=== PATIENT | female | born 1960 | race Caucasian/White ===

== ENCOUNTER → 2020-06-28 13:06 | Outpatient (BNVA) | payer OTHER, SELFPAY | PROVIDERS: PCP Internal Medicine; Referring Provider Internal Medicine; Visit Provider Internal Medicine Pulmonary Disease | DX: J45.40 Moderate persistent asthma, uncomplicated (principal); G47.33 Obstructive sleep apnea (adult) (pediatric); I51.89 Other ill-defined heart diseases; Z79.899 Other long term (current) drug therapy; Z99.89 Dependence on other enabling machines and devices | CPT/HCPCS: 99214 ==

== ENCOUNTER 2020-08-10 15:39 | Outpatient (REF) | payer OTHER, SELFPAY | END 2020-08-10 15:40 | disposition home or self-care (01) | LOC: HO.LAB 15:39 | PROVIDERS: Visit Provider Internal Medicine | DX: Z20.828 Contact with and (suspected) exposure to other viral communicable diseases (principal) | CPT/HCPCS: C9803; U0003 ==

== ENCOUNTER → 2020-10-18 13:10 | Outpatient (BNVA) | payer OTHER, SELFPAY | PROVIDERS: PCP Internal Medicine; Visit Provider Internal Medicine Pulmonary Disease | DX: Z13.89 Encounter for screening for other disorder (principal) | CPT/HCPCS: 99212 ==

== ENCOUNTER 2020-12-10 13:51 | Emergency (ER) | payer OTHER, SELFPAY ==
[2020-12-10 14:07] VITALS: BP 138/85; PULSE 56; RESP 18; TEMP 36.1; O2SAT 98; BMI 36.8
--- NOTE | 2020-12-10 15:02 | ED.BACK ---
HPI - Back Pain/Injury General Chief Complaint: Back Pain/Injury Stated Complaint: BACK PAIN Time Seen by Provider: 12/10/20 15:02 History of Present Illness HPI Narrative: Patient with chronic back pain complains of a flare which happens occasionally , pain is more severe and is radiating it to both sides of the buttock and to both posterior upper thighs, there is no weakness no numbness no changes to bowel or bladder no fever no chills no abdominal pain no back pain Related Data Home Medications Medication Instructions Recorded Confirmed montelukast 10 mg tablet 10 mg PO DAILY 06/28/20 12/20/20 omeprazole 20 mg capsule,delayed 20 mg PO DAILY 06/28/20 12/20/20 release Previous Rx's Medication Instructions Recorded albuterol sulfate 90 mcg/actuation 1 inh INHALATION QID #6.7 g 07/04/20 aerosol inhaler fexofenadine 180 mg tablet 180 mg PO DAILY 30 Days #30 tab 07/04/20 ipratropium 0.5 mg-albuterol 3 mg 3 ml INHALATION Q6-8H 30 Days #360 07/06/20 (2.5 mg base)/3 mL nebulization ml soln furosemide 40 mg tablet 40 mg PO BID 30 Days #60 tab 10/18/20 budesonide-formoterol HFA 160 2 puff PO BID #10.2 g 10/19/20 mcg-4.5 mcg/actuation aerosol inhaler cyclobenzaprine 10 mg PO TID PRN #10 tab 12/10/20 ibuprofen 600 mg PO Q6H PRN #20 tab 12/10/20 acetaminophen 650 mg 650 mg PO Q12H PRN 90 Days #180 tab 12/20/20 tablet,extended release Allergies Allergy/AdvReac Type Severity Reaction Status Date / Time pollen extracts [POLLEN] Allergy Mild ITCHY EYES Verified 12/20/20 12:51 apple [APPLES] Allergy Unknown HIVES Verified 12/20/20 12:51 egg [EGGS] Allergy Unknown HIVES Verified 12/20/20 12:51 peanut [PEANUTS] Allergy Unknown HIVES Verified 12/20/20 12:51 Review of Systems Review of Systems: Positive for back pain that radiates to both buttocks and both upper thighs Negatives are no fever no chills no dizziness no weakness no numbness weakness or tingling no headache no neck pain no chest pain no abdominal pain no skin rash [facility] Past Medical History Source: nursing notes reviewed Medical History Asthma Chronic back pain Social History Social History Alcohol intake: never Smoking Status: Never smoker Physical Exam Vital Signs: Vital Signs: Last Vital Signs Temp 98.1 F 12/10/20 16:01 Pulse 77 12/10/20 18:02 Resp 16 12/10/20 18:02 BP 120/65 12/10/20 18:02 Pulse Ox 96 12/10/20 18:02 Body Mass Index 36.8 General appearance is no acute distress, cooperative and O x3 Head is normocephalic atraumatic Neck is supple and nontender The chest no respiratory distress The abdomen is soft nontender The back had bilateral paraspinal lower lumbar tenderness, the skin was normal with no redness warmth or rash, there was no focal bony tenderness, there was no CVA tenderness, pain was easily reproduced with movement The extremities is full range of motion x4 Skin no rash Neuro motor is 5/5 x4, gait is normal and sensation was intact and symmetrical Discharge Plan Discharge Clinical Impression: Back pain Patient Disposition: Home, Self-Care Additional Instructions: We gave additional narcotic dosing here As you have a monthly prescription for oxycodone, I did not want to write any additional narcotic medication as it might interfere with her doctors ability to prescribe your regular monthly dose The best plan is if needed use that medication to take extra dosing of oxycodone as needed and call the prescribing doctor to make sure that is okay I added a muscle relaxer and Motrin Follow with her doctor and return any concerns Prescriptions: New cyclobenzaprine 10 mg tablet 10 mg PO TID PRN (Reason: muscle spasm) Qty: 10 RF: 0 ibuprofen 600 mg tablet 600 mg PO Q6H PRN (Reason: pain) Qty: 20 RF: 0 No Action albuterol sulfate [Proventil HFA] 90 mcg/actuation HFA aerosol inhaler 1 inh inhalation QID Qty: 6.7 RF: 3 fexofenadine 180 mg tablet 180 mg PO DAILY 30 Days Qty: 30 RF: 3 ipratropium-albuterol 0.5 mg-3 mg(2.5 mg base)/3 mL solution for nebulization 3 ml inhalation Q6-8H 30 Days Qty: 360 RF: 6 budesonide-formoterol 160-4.5 mcg/actuation HFA aerosol inhaler 2 puff PO BID Qty: 10.2 RF: 3 acetaminophen 650 mg tablet extended release 650 mg PO Q12H PRN (Reason: pain) 90 Days Qty: 180 RF: 2 furosemide 40 mg tablet 40 mg PO BID 30 Days Qty: 60 RF: 3 montelukast 10 mg tablet 10 mg PO DAILY RF: 0 omeprazole 20 mg capsule,delayed release(DR/EC) 20 mg PO DAILY RF: 0 Interventions: ED Discharge Assessment Last Done: 12/10/20 18:03 Discharge Date/Time: 12/10/20 18:04
[2020-12-10] MEDS: Ketorolac Tromethamine 30 MG/ML VIAL IM (15:49)
[2020-12-10] MEDS: oxyCODONE HCl Immed Release 5 MG TABLET 10 MG PO (15:50)
[2020-12-10] MEDS: LORazepam 1 MG TABLET PO (15:50)
[2020-12-10 16:01] VITALS: BP 130/62; PULSE 88; RESP 20; TEMP 36.7; O2SAT 100
[2020-12-10] MEDS: Morphine Sulfate 2 MG/ML CARTRIDGE IM (17:10)
[2020-12-10 18:02] VITALS: BP 120/65; PULSE 77; RESP 16; O2SAT 96
== END 2020-12-10 18:04 | disposition home or self-care (01) ==
PROVIDERS: Emergency Provider Emergency Medicine; PCP Internal Medicine
DX: M54.5 Low back pain (principal); M79.652 Pain in left thigh; M79.651 Pain in right thigh; Z79.899 Other long term (current) drug therapy
CPT/HCPCS: 96372; 99284; J1885; J2270

== ENCOUNTER → 2021-01-08 12:47 | Outpatient (BNVA) | payer OTHER, SELFPAY | PROVIDERS: PCP Internal Medicine; Visit Provider Internal Medicine Pulmonary Disease | DX: J45.40 Moderate persistent asthma, uncomplicated (principal); J44.9 Chronic obstructive pulmonary disease, unspecified; G47.33 Obstructive sleep apnea (adult) (pediatric); Z99.89 Dependence on other enabling machines and devices; Z91.09 Other allergy status, other than to drugs and biological substances | CPT/HCPCS: 99212 ==

== ENCOUNTER 2021-04-04 14:30 | Outpatient (REF) | payer OTHER, SELFPAY ==
--- NOTE | ~2021-04-04 | XR_ITS ---
EXAMINATION: XR RIBS, RIGHT CLINICAL INFORMATION: Chest pain COMPARISON: Chest x-ray of October 20, 2019 TECHNIQUE: PA film of the chest and 3 views of the right ribs FINDINGS: There are some stable patchy regions of density at the lung bases likely related to atelectasis. No pneumothorax or pleural effusion. Heart normal size. No evidence of pulmonary edema. No acute displaced rib fracture is identified. XR/XR ribs RT min 3V w CXR1V IMPRESSION: Stable appearance of the chest. No acute rib fracture, effusion, or pneumothorax identified.
[2021-04-04 16:33] LABS: Basophils Absolute Auto 0.1 X10*3/uL (0.0-0.2); Basophils Percent Auto 0.6 % (0-2); Eosinophils Percent Auto 2.6 % (0-4); Hemoglobin 14.1 g/dl (12.0-16.0); MANUAL DIFF FLAG SCAN; Mean Corpuscular Volume 89.5 fL (80-98); SCAN SMEAR FLAG 1
[2021-04-04 16:35] LABS: Eosinophils Absolute Auto 0.3 X10*3/uL (0.0-0.4); Hematocrit 43.3 % (37-47); Imm Gran Abs Auto 0.09 X10*3/uL (0.00-0.03); Imm Gran Pct Auto 0.8 % (0.0-0.4); Lymphocytes Absolute Auto 3.3 X10*3/uL (1.2-4.9); Lymphocytes Percent Auto 28.8 % (20-40); Mean Corpuscular HGB Conc 32.6 g/dl (31.0-35.0); Mean Corpuscular Hemoglobin 29.1 pg (27.0-33.0); Mean Platelet Volume 13.1 fL (9.4-12.3); Monocytes Percent Auto 8.6 % (2-11); Neutrophils Absolute Auto 6.8 X10*3/uL (2.0-8.3); Neutrophils Percent Auto 58.6 % (45-73); Red Blood Count 4.84 X10*6/uL (4.20-5.50); Red Cell Distribution Width 12.5 % (11.0-16.0)
[2021-04-04 16:37] LABS: PLT ABN DIST 1
[2021-04-04 16:48] LABS: Alanine Aminotransferase 24 U/L (0-31); Albumin Level 4.7 g/dL (3.5-5.0); Alkaline Phosphatase 91 U/L (39-117); Anion Gap 16 (12-20); Aspartate Amino Transferase 23 U/L (5-31); Bilirubin Total 0.4 mg/dL (0.0-1.0); Blood Urea Nitrogen 14 mg/dL (9-16); Calcium 10.4 mg/dL (8.4-10.2); Carbon Dioxide 27 mmol/L (22-29); Chloride 103 mmol/L (96-108); Cholesterol 195 mg/dL; Estimated Glomerular Filt Rate > 60; Glucose Fasting 97 mg/dL (60-99); HDL Cholesterol 43 mg/dL; LDL Cholesterol Calculated 120 mg/dl; Sodium 142 mmol/L (135-145); Total Protein 8.4 g/dL (6.5-8.0); Triglycerides 163 mg/dL
[2021-04-04 16:52] LABS: Platelet Count 193 X10*3/uL (160-400); White Blood Count 11.6 X10*3/uL (4.8-10.8)
[2021-04-04 17:08] LABS: TSH reflex Free T4 1.45 uIU/mL (0.32-4.0)
[2021-04-04 18:56] LABS: SLIDE REVIEW VERIFIED
== END 2021-04-04 14:31 | disposition home or self-care (01) ==
LOC: HO.HMGCLDS 14:30
PROVIDERS: PCP Internal Medicine; Visit Provider Internal Medicine
DX: Z00.01 Encounter for general adult medical examination with abnormal findings (principal); E66.09 Other obesity due to excess calories; J45.40 Moderate persistent asthma, uncomplicated; K21.9 Gastro-esophageal reflux disease without esophagitis; R07.89 Other chest pain
CPT/HCPCS: 36415; 71101; 80053; 80061; 84443; 85025

== ENCOUNTER → 2021-05-16 12:42 | Outpatient (BNVA) | payer OTHER, SELFPAY | PROVIDERS: PCP Internal Medicine; Visit Provider Internal Medicine Pulmonary Disease | DX: J45.50 Severe persistent asthma, uncomplicated (principal); J30.1 Allergic rhinitis due to pollen; G47.33 Obstructive sleep apnea (adult) (pediatric); R06.00 Dyspnea, unspecified; R60.0 Localized edema; Z99.89 Dependence on other enabling machines and devices; Z91.012 Allergy to eggs; Z91.010 Allergy to peanuts; Z91.018 Allergy to other foods | CPT/HCPCS: 99212 ==

== ENCOUNTER 2021-06-15 13:42 | Outpatient (REF) | payer OTHER, SELFPAY ==
--- NOTE | ~2021-06-15 | MM_ITS ---
EXAMINATION: MM SCREENING DIGITAL BREAST TOMOSYNTHESIS, BILATERAL CLINICAL INFORMATION: Screening. Asymptomatic. The lifetime risk of breast cancer based on the Tyrer-Cuzick Model is 7%. COMPARISON: Mammography: 03/01/2019, 12/16/2016, 12/14/2015 TECHNIQUE: Digital breast tomosynthesis is performed in both the craniocaudal and mediolateral oblique views along with computer-aided detection (CAD). Synthesized 2D images are generated from the tomosynthesis. Additional exaggerated left CC view is provided. FINDINGS: There are scattered areas of fibroglandular density (ACR BI-RADS breast composition Category b). There are no significant masses, abnormal calcifications, or other abnormalities. Parenchymal pattern is similar to prior studies. The axillary nodes are stable. Skin contours are smooth. MM/MM tomosynthesis screening BI IMPRESSION: No mammographic evidence of malignancy. ASSESSMENT: BI-RADS 1: Negative RECOMMENDATION: Routine annual mammography screening. This patient's information was entered into a reminder system with a target due date for their next mammogram.
--- NOTE | ~2021-06-15 | MM_ITS ---
EXAMINATION: BONE DENSITOMETRY CLINICAL INDICATION: Encounter for other screening for malignant neoplasm. COMPARISON: This is the patient's baseline examination. TECHNIQUE: Using a [employer] DXA System (software version: 13.1) manufactured by [employer], dual-energy x-ray absorptiometry was performed of the lumbar spine and left hip. The images are of good technical quality. Summary results are attached. FINDINGS: AP SPINE L1-L4: BMD 1.024 g/cm2, Z-score -1.1, T-score -1.3, osteopenia. LEFT FEMUR, NECK: BMD 0.905 g/cm2, Z-score -0.4, T-score -1.0, normal. LEFT FEMUR, TOTAL: BMD 1.095 g/cm2, Z-score 0.9, T-score 0.7, normal. IDENTIFIED RISK FACTORS: Menopause. HISTORY OF FRACTURE: None listed. MEDICATIONS: None listed. MM/XR DEXA axial skeleton IMPRESSION: 1. DIAGNOSIS: Osteopenia based on the lowest T-score value of -1.3 in the lumbar spine applying World Health Organization criteria. 2. 10-YEAR FRACTURE RISK PREDICTION, FRAX: Major osteoporotic fracture (clinical spine, forearm, hip or shoulder) 3.7%. Hip fracture 0.2%. 3. Treatment Recommendations: NOF guidelines recommend consideration for treatment in postmenopausal women and men age 50 and older presenting with the following: -A hip or vertebral (clinical or morphometric) fracture. -T-score less than or equal to -2.5 at the femoral neck or spine after appropriate evaluation to exclude secondary causes. -Low bone mass at the hip or spine and a 10-year fracture probability by FRAX of greater than or equal to 3% for hip fracture or greater than or equal to 20% for major osteoporotic fracture based on the [place] adapted WHO algorithm. 4. Other Recommendations: All treatment decisions require clinical judgment and consideration of individual patient factors, including patient preferences, comorbidities, previous drug use, risk factors not captured in the FRAX model (e.g. frailty, falls, vitamin D deficiency, increased bone turnover, interval significant decline in bone density) and possible under or overestimation of fracture risk by FRAX. Additional medical evaluation for secondary cause of low bone mineral density may be appropriate. FUTURE SCAN RECOMMENDATION: People with diagnosed cases of osteoporosis or at high risk for fracture should have regular bone mineral density tests. For patients eligible for Medicare, routine testing is allowed once every 2 years. The testing frequency can be increased to one year for patients who have rapidly progressing disease, those who are receiving or discontinuing medical therapy to restore bone mass, or have additional risk factors.
== END 2021-06-15 13:43 | disposition home or self-care (01) ==
LOC: HO.MAMMO 13:42
PROVIDERS: Visit Provider Internal Medicine
DX: Z12.31 Encounter for screening mammogram for malignant neoplasm of breast (principal); Z13.820 Encounter for screening for osteoporosis; M85.80 Other specified disorders of bone density and structure, unspecified site; Z78.0 Asymptomatic menopausal state
CPT/HCPCS: 77063; 77067; 77080

== ENCOUNTER → 2021-06-25 13:50 | Outpatient (REF) | payer OTHER, SELFPAY ==
--- NOTE | 2021-06-25 13:54 | CA_ITS ---
Transthoracic Echocardiogram Patient (Last, First, Middle): Alexandra Ortega M Gender: Female Date of : 1960 Age: 61 Procedure Date: 06/25/2021 Procedure Type: Transthoracic Echocardiogram Location: OP Height: 162.56 cm Weight: 97.98 kg BSA: 2.02 m2 Heart Rate: bpm BP: 124 / 70 mmHg Client Resolution Specialist: Referring MD: Torrey Love MD Symptoms: R06.00 - Dyspnea, unspecified Study Quality: Fair ECG Rhythm: Sinus Conclusions: - The left ventricular systolic function is normal. The visually estimated ejection fraction is between 55-60%. - There is mild tricuspid valve regurgitation. - Mild pulmonary hypertension is present. Findings Left Ventricle Normal left ventricular cavity size. There is mildly increased left ventricular wall thickness. The left ventricular systolic function is normal. The visually estimated ejection fraction is between 55-60%. There is no evidence of regional wall motion abnormalities. E/E prime ratio is between 8 and 15 consistent with indeterminate filling pressures. Evidence suggests grade I (mild) diastolic dysfunction. Right Ventricle Normal right ventricular cavity size and systolic function. Atria Both atria are normal in size. Aortic Valve There is a normal trileaflet aortic valve. There is no aortic valve stenosis. There is no aortic valve regurgitation. Mitral Valve The mitral valve appears normal. There is trace mitral valve regurgitation. There is no mitral valve stenosis. Pulmonic Valve The pulmonic valve was not well visualized. Tricuspid Valve Normal tricuspid valve structure. There is mild tricuspid valve regurgitation. The right ventricular systolic pressure is 37 mmHg. Mild pulmonary hypertension is present. Great Vessels Top normal ascending aortic size at 3.7 cm. Venous The inferior vena cava was not well visualized. Pericardium/Pleural There is no evidence of pericardial effusion. Prior Study Comparison No significant change compared to prior study dated: 04/20/2020. Measurements 2D Linear Measurements IVSd: 1.11 0.6-0.9/0.6-1.0 cm LVIDd: 4.45 3.9-5.3/4.2-5.9 cm LVIDd Index: 2.20 2.4-3.2/2.2-3.1 cm/m2 LVIDs: 3.11 2.0-3.6 cm LVPWd: 1.07 0.7-1.1 cm Ao Root: 3.20 2.1-3.5 cm LA Diam: 3.70 2.7-3.8/3.0-4.0 cm LAIDs Index: 1.83 1.5-2.3 cm/m2 LV Mass: 211.45 67-162/88-224 g LV Mass Index: 104.68 43-95/49-115 g/m2 LVOT Diam: 2.00 3.0+(-)1.3 cm Mitral Valve MV Pk E: 0.80 MV PK A: 1.02 MV Decel Time: 297.00 E/A: 0.80 E'Lateral: 7.40 E'Medial: 8.92 E/E' Med: 9.00 E/E' Lat: 10.80 PHT: 87.00 MVA PHT: 2.53 Decel [place]: 2.69 Aortic Valve AoV Pk Jimbo: 1.54 AoV Mn Jimbo: 1.05 AoV VTI: 0.30 AoV Pk Grad: 9.00 Aov Mn Grad: 5.00 WILLIAM Cont.VTI: 1.81 LVOT LVOT Pk Jimbo: 0.86 LVOT Mn Jimbo: 0.60 LVOT VTI: 0.17 LVOT Pk Grad: 3.00 LVOT Mn Grad: 2.00 LVOT Diam: 2.00 LVOT Area: 3.14 Diastolic Function MV Pk E: 0.80 MV Pk A: 1.02 E/A: 0.80 E'Medial: 8.92 E/E' Med: 9.00 E' Laterial: 7.40 E/E' Lat: 10.80 Right Ventricle TAPSE (mm): 27.00 TVS' Jimbo: 13.00 Tricuspid Valve TR Pk Jimbo: 2.33 TR Pk Grad: 22.00 RVSP: 37.00 Great Vessels Aorta Ao Root-2D: 3.20 2.0-3.7 cm Ao Asc: 3.70 2.1-3.4 cm Ao Arch: 3.00 Pulmonary Valve PV Pk Jimbo: 1.02 Peak PV Grad: 4.00 Updated in Other Vendor System with Status of Final Bernardino Allen MD electronically signed on 06/26/2021 4:29:15 PM with status of Final
== END ==
LOC: HO.CARD 13:50
PROVIDERS: PCP Internal Medicine; Visit Provider Internal Medicine Pulmonary Disease
DX: R06.00 Dyspnea, unspecified (principal)
CPT/HCPCS: 93306

== ENCOUNTER → 2021-06-27 13:43 | Outpatient (BNVA) | payer OTHER, SELFPAY | PROVIDERS: PCP Internal Medicine; Visit Provider Internal Medicine Pulmonary Disease | DX: J45.40 Moderate persistent asthma, uncomplicated (principal); G47.33 Obstructive sleep apnea (adult) (pediatric); R06.00 Dyspnea, unspecified; R60.0 Localized edema; Z99.89 Dependence on other enabling machines and devices | CPT/HCPCS: 99212 ==

== ENCOUNTER 2021-07-16 12:36 | Emergency (ER) | payer OTHER, SELFPAY ==
[2021-07-16 13:13] VITALS: BP 152/78; PULSE 114; RESP 17; TEMP 35.9; O2SAT 98; BMI 36.7
--- NOTE | 2021-07-16 18:19 | ED.GENADULT ---
HPI - General Adult General Chief complaint: General Medical Stated complaint: leg pain/asthma Time Seen by Provider: 07/16/21 18:19 Source: patient Mode of arrival: ambulatory Limitations: no limitations History of Present Illness HPI narrative: Pain with history of chronic back pain on oxycodone seen specialist and had epidural in the past plan to see pain specialist comes here as she finished her oxycodone 1 week ago supposed to last till next week pain is in the lower back going to her left leg as in the past no recent trauma also patient has history of asthma/COPD on inhaler at home no weakness of the legs no bladder or bowel involvement Related Data Home Medications Medication Instructions Recorded Confirmed montelukast 10 mg tablet 10 mg PO DAILY 06/28/20 04/04/21 omeprazole 20 mg capsule,delayed 20 mg PO DAILY 06/28/20 04/04/21 release Previous Rx's Medication Instructions Recorded fexofenadine 180 mg tablet 180 mg PO DAILY 30 Days #30 tab 07/04/20 cyclobenzaprine 10 mg tablet 10 mg PO TID PRN #10 tab 12/10/20 ibuprofen 600 mg tablet 600 mg PO Q6H PRN #20 tab 12/10/20 ipratropium 0.5 mg-albuterol 3 mg 3 ml INHALATION Q8H #360 ml 01/19/21 (2.5 mg base)/3 mL nebulization soln fluticasone propionate 50 1 spray INTRANASAL BID #48 ml 04/04/21 mcg/actuation nasal spray,suspension acetaminophen 650 mg 650 mg PO Q12H PRN 90 Days #180 tab 04/30/21 tablet,extended release Symbicort 160 mcg-4.5 2 puff PO BID #10.2 g NS 05/09/21 mcg/actuation HFA aerosol inhaler (budesonide-formoterol) furosemide 40 mg tablet 40 mg PO BID 30 Days #60 tab 05/16/21 ProAir HFA 90 mcg/actuation 1 puff PO QID #8.5 g NS 06/05/21 aerosol inhaler (albuterol sulfate) carisoprodol 350 mg tablet (Soma) 350 mg PO TID PRN #30 tab 07/16/21 diclofenac epolamine 1.3 % 1 patch TOPICAL BID #30 ea 07/16/21 transdermal 12 hour patch gabapentin 300 mg capsule 300 mg PO BEDTIME #30 cap 07/16/21 prednisone 20 mg tablet 40 mg PO DAILY #10 tab 07/16/21 Allergies Allergy/AdvReac Type Severity Reaction Status Date / Time pollen extracts [POLLEN] Allergy Mild ITCHY EYES Verified 06/27/21 13:47 apple [APPLES] Allergy Unknown HIVES Verified 06/27/21 13:47 egg [EGGS] Allergy Unknown HIVES Verified 06/27/21 13:47 peanut [PEANUTS] Allergy Unknown HIVES Verified 06/27/21 13:47 Review of Systems Review of Systems: Yes all other systems are reviewed and are negative [facility] Past Medical History Medical History Asthma Chronic back pain Social History Social History Housing: Apartment Alcohol intake: never Patient Tobacco Use Status: Never used Tobacco Second Hand Smoke Exposure: No Advance Directives: No Advance Directives Information Provided: No Current occupational status: disabled Physical Exam Vital Signs: Vital Signs: Last Vital Signs Temp 98.9 F 07/16/21 18:58 Pulse 98 07/16/21 19:57 Resp 16 07/16/21 19:12 BP 139/83 07/16/21 19:12 Pulse Ox 97 07/16/21 19:12 Body Mass Index 36.7 Appearance: Alert. Oriented X3. No acute distress. Eyes: No pallor or icterus ENT: Pharynx normal. Oral Mucosa moist Neck: Normal inspection. Neck supple. CVS: Normal heart rate and rhythm. Pulses normal. Respiratory: No respiratory distress. Equal air entry bilateral, bilateral rhonchi no crackles Abdomen: Soft and nontender. Bowel sounds are present, no mass palpable, no CVA tenderness Skin: Skin warm and dry. Normal skin color. Normal skin turgor. Extremities: No lower extremity edema. No calf tenderness back: Diffuse lumbar spinal tenderness SLR positive left leg 45 degrees no neuro deficit Neuro: Oriented X 3. No motor deficit. No sensory deficit.No cerebellar signs , cranial nerves II-XII intact Medical Decision Making Lab Data Labs: Lab Results 07/16/21 Range/Units 19:00 COVID-19 (NIK) Negative (Negative) COVID-19 Clin Com See Note Discharge Plan Discharge Clinical Impression: Back pain Patient Disposition: Home, Self-Care Instructions: Chronic Back Pain (DC) Additional Instructions: Take pain medication as prescribed and follow-up with pain clinic Prescriptions: New carisoprodol [Soma] 350 mg tablet 350 mg PO TID PRN (Reason: muscle pain) Qty: 30 RF: 0 diclofenac epolamine 1.3 % patch 12 hour 1 patch topical BID Qty: 30 RF: 0 prednisone 20 mg tablet 40 mg PO DAILY Qty: 10 RF: 0 gabapentin 300 mg capsule 300 mg PO BEDTIME Qty: 30 RF: 0 No Action fexofenadine 180 mg tablet 180 mg PO DAILY 30 Days Qty: 30 RF: 3 ipratropium-albuterol 0.5 mg-3 mg(2.5 mg base)/3 mL solution for nebulization 3 ml inhalation Q8H Qty: 360 RF: 6 fluticasone propionate 50 mcg/actuation spray,suspension 1 spray intranasal BID Qty: 48 RF: 3 acetaminophen 650 mg tablet extended release 650 mg PO Q12H PRN (Reason: pain) 90 Days Qty: 180 RF: 2 budesonide-formoterol [Symbicort] 160-4.5 mcg/actuation HFA aerosol inhaler 2 puff PO BID Qty: 10.2 RF: 1 albuterol sulfate [ProAir HFA] 90 mcg/actuation HFA aerosol inhaler 1 puff PO QID Qty: 8.5 RF: 3 cyclobenzaprine 10 mg tablet 10 mg PO TID PRN (Reason: muscle spasm) Qty: 10 RF: 0 ibuprofen 600 mg tablet 600 mg PO Q6H PRN (Reason: pain) Qty: 20 RF: 0 furosemide 40 mg tablet 40 mg PO BID 30 Days Qty: 60 RF: 3 montelukast 10 mg tablet 10 mg PO DAILY RF: 0 omeprazole 20 mg capsule,delayed release(DR/EC) 20 mg PO DAILY RF: 0 Interventions: ED Discharge Assessment Last Done: 07/16/21 20:47 Discharge Date/Time: 07/16/21 20:48
[2021-07-16 18:58] VITALS: BP 129/71; PULSE 105; RESP 18; TEMP 37.2; O2SAT 95
[2021-07-16 19:12] VITALS: BP 139/83; PULSE 103; RESP 16; O2SAT 97
[2021-07-16] MEDS: predniSONE 20 MG TABLET 40 MG PO (19:17)
[2021-07-16] MEDS: carisoprodoL 350 MG TABLET PO (19:17)
[2021-07-16] MEDS: traMADoL HCL 50 MG TABLET PO (19:18)
--- NOTE | 2021-07-16 19:21 | PC.NURSE ---
Bronchial and vesicular ls are clear and =, pt is speaking in full clear sentences wuth nonlabored resps pt reports 7/10 pain behind L knee, no redness or warmth noted, pedal pulses are = bilat. awaiting rt for upd.
[2021-07-16 19:30] LABS: COVID-19 Test Negative (Negative)
[2021-07-16] MEDS: Albuterol/Iprat 2.5/0.5MG 3 ML AMPUL.NEB INHALE (19:55)
[2021-07-16 19:57] VITALS: PULSE 98; O2SAT 98
== END 2021-07-16 20:48 | disposition home or self-care (01) ==
LOC: HO.ED 19:20
PROVIDERS: Emergency Provider Internal Medicine; PCP Internal Medicine
DX: M54.50 Low back pain, unspecified (principal); M79.605 Pain in left leg; Z79.899 Other long term (current) drug therapy; Z20.822 Contact with and (suspected) exposure to COVID-19
CPT/HCPCS: 36415; 87635; 94640; 99283; 99284

== ENCOUNTER → 2021-08-22 13:45 | Outpatient (BNVA) | payer OTHER, SELFPAY | PROVIDERS: PCP Internal Medicine; Visit Provider Internal Medicine Pulmonary Disease | DX: J44.9 Chronic obstructive pulmonary disease, unspecified (principal); J45.50 Severe persistent asthma, uncomplicated; G47.33 Obstructive sleep apnea (adult) (pediatric); R60.0 Localized edema; Z99.89 Dependence on other enabling machines and devices | CPT/HCPCS: 99212 ==

== ENCOUNTER → 2021-09-03 14:46 | Outpatient (BNVA) | payer OTHER, SELFPAY | PROVIDERS: PCP Internal Medicine; Referring Provider Internal Medicine; Visit Provider Internal Medicine Cardiovascular Disease | DX: R06.00 Dyspnea, unspecified (principal); R60.0 Localized edema; J45.909 Unspecified asthma, uncomplicated; Z77.22 Contact with and (suspected) exposure to environmental tobacco smoke (acute) (chronic) | CPT/HCPCS: 93005; 99202 ==

== ENCOUNTER → 2022-02-08 14:32 | Outpatient (BNVA) | payer OTHER, SELFPAY | PROVIDERS: PCP Internal Medicine; Visit Provider Internal Medicine Pulmonary Disease | DX: J44.9 Chronic obstructive pulmonary disease, unspecified (principal); J02.9 Acute pharyngitis, unspecified; G47.33 Obstructive sleep apnea (adult) (pediatric); Z79.899 Other long term (current) drug therapy; Z99.89 Dependence on other enabling machines and devices | CPT/HCPCS: 99212 ==

== ENCOUNTER → 2022-06-18 12:46 | Outpatient (BNVA) | payer OTHER, SELFPAY | PROVIDERS: PCP Internal Medicine; Visit Provider Internal Medicine Pulmonary Disease | DX: R06.00 Dyspnea, unspecified (principal); G47.33 Obstructive sleep apnea (adult) (pediatric); J45.40 Moderate persistent asthma, uncomplicated; R60.0 Localized edema; Z99.89 Dependence on other enabling machines and devices | CPT/HCPCS: 99212 ==

== ENCOUNTER 2022-06-19 13:41 | Outpatient (REF) | payer OTHER, SELFPAY ==
--- NOTE | ~2022-06-19 | MM_ITS ---
EXAMINATION: MM SCREENING DIGITAL BREAST TOMOSYNTHESIS, BILATERAL CLINICAL INFORMATION: Screening. Asymptomatic. The lifetime risk of breast cancer based on the Tyrer-Cuzick Model is 7%. COMPARISON: Mammography: 06/15/2021, 03/01/2019, 12/16/2016 TECHNIQUE: Digital breast tomosynthesis is performed in both the craniocaudal and mediolateral oblique views along with computer-aided detection (CAD). Synthesized 2D images are generated from the tomosynthesis. FINDINGS: There are scattered areas of fibroglandular density (ACR BI-RADS breast composition Category b). There are no significant masses, abnormal calcifications, or other abnormalities. There is no developing density or architectural abnormality. Again, there is a smooth oval intramammary node mid upper outer left breast and scattered bilateral vascular calcifications. The axilla and skin contours are unremarkable. MM/MM tomosynthesis screening BI IMPRESSION: No mammographic evidence of malignancy. ASSESSMENT: BI-RADS 2: Benign RECOMMENDATION: Routine annual mammography screening. This patient's information was entered into a reminder system with a target due date for their next mammogram.
== END 2022-06-19 13:42 | disposition home or self-care (01) ==
LOC: HO.MAMMO 13:41
PROVIDERS: Visit Provider Internal Medicine
DX: Z12.31 Encounter for screening mammogram for malignant neoplasm of breast (principal)
CPT/HCPCS: 77063; 77067

== ENCOUNTER 2022-06-26 13:28 | Outpatient (REF) | payer OTHER, SELFPAY ==
[2022-06-26 16:43] LABS: Alanine Aminotransferase 21 U/L (0-31); Albumin Level 4.6 g/dL (3.5-5.0); Alkaline Phosphatase 73 U/L (39-117); Anion Gap 19 (12-20); Aspartate Amino Transferase 19 U/L (5-31); Bilirubin Total 0.4 mg/dL (0.0-1.0); Blood Urea Nitrogen 15 mg/dL (9-16); Calcium 9.5 mg/dL (8.4-10.2); Carbon Dioxide 26 mmol/L (22-29); Chloride 101 mmol/L (96-108); Estimated Glomerular Filt Rate > 60; Glucose Random 124 mg/dL (60-115); Potassium 3.9 mmol/L (3.3-5.1); Sodium 142 mmol/L (135-145)
== END 2022-06-26 13:29 | disposition home or self-care (01) ==
LOC: HO.HMGCLDS 13:28
PROVIDERS: PCP Internal Medicine; Visit Provider Internal Medicine
DX: R60.0 Localized edema (principal)
CPT/HCPCS: 36415; 80053

== ENCOUNTER → 2022-11-15 13:43 | Outpatient (BNVA) | payer OTHER, SELFPAY | PROVIDERS: PCP Internal Medicine; Visit Provider Internal Medicine Pulmonary Disease | DX: J45.40 Moderate persistent asthma, uncomplicated (principal); G47.33 Obstructive sleep apnea (adult) (pediatric); Z99.89 Dependence on other enabling machines and devices | CPT/HCPCS: 99212 ==

== ENCOUNTER 2023-01-29 10:45 | Outpatient (REF) | payer OTHER, SELFPAY ==
[2023-01-29 14:23] LABS: MANUAL DIFF FLAG NO
[2023-01-29 14:44] LABS: Basophils Absolute Auto 0.1 X10*3/uL (0.0-0.2); Basophils Percent Auto 0.8 % (0-2); Eosinophils Absolute Auto 0.3 X10*3/uL (0.0-0.4); Eosinophils Percent Auto 4.1 % (0-4); Hematocrit 42.1 % (37.0-47.0); Hemoglobin 13.7 g/dl (12.0-16.0); Imm Gran Abs Auto 0.04 X10*3/uL (0.00-0.03); Imm Gran Pct Auto 0.5 % (0.0-0.4); Lymphocytes Absolute Auto 2.8 X10*3/uL (1.2-4.9); Lymphocytes Percent Auto 35.6 % (20-40); Mean Corpuscular HGB Conc 32.5 g/dl (31.0-35.0); Mean Corpuscular Hemoglobin 29.7 pg (27.0-33.0); Mean Corpuscular Volume 91.1 fL (80.0-98.0); Mean Platelet Volume 12.9 fL (9.4-12.3); Monocytes Absolute Auto 0.7 X10*3/uL (0.1-1.2); Monocytes Percent Auto 9.5 % (2-11); Neutrophils Absolute Auto 3.9 x10*3/uL (2.0-8.3); Neutrophils Percent Auto 49.5 % (45-73); Platelet Count 181 X10*3/uL (160-400); Red Blood Count 4.62 X10*6/uL (4.20-5.50); Red Cell Distribution Width 12.9 % (11.0-16.0); White Blood Count 7.8 X10*3/uL (4.8-10.8)
[2023-01-29 15:05] LABS: Alanine Aminotransferase 17 U/L (0-31); Albumin Level 4.3 g/dL (3.5-5.0); Alkaline Phosphatase 88 U/L (39-117); Anion Gap 12 (12-20); Aspartate Amino Transferase 19 U/L (5-31); Bilirubin Total 0.5 mg/dL (0.0-1.0); Blood Urea Nitrogen 6 mg/dL (9-16); Calcium 9.3 mg/dL (8.4-10.2); Carbon Dioxide 27 mmol/L (22-29); Chloride 108 mmol/L (96-108); Estimated Glomerular Filt Rate > 60; Glucose Random 98 mg/dL (60-115); Potassium 4.6 mmol/L (3.3-5.1); Sodium 142 mmol/L (135-145); Total Protein 7.5 g/dL (6.5-8.0)
[2023-01-29 15:16] LABS: TSH reflex Free T4 1.65 uIU/mL (0.32-4.0)
[2023-01-31 12:24] LABS: LDL Cholesterol Direct 123 mg/dL (<100)
== END 2023-01-29 10:46 | disposition home or self-care (01) ==
LOC: HO.HMGCLDS 10:45
PROVIDERS: PCP Internal Medicine; Visit Provider Internal Medicine
DX: Z00.01 Encounter for general adult medical examination with abnormal findings (principal); J44.9 Chronic obstructive pulmonary disease, unspecified; J45.40 Moderate persistent asthma, uncomplicated; K21.9 Gastro-esophageal reflux disease without esophagitis; Z91.09 Other allergy status, other than to drugs and biological substances
CPT/HCPCS: 36415; 80053; 83721; 84443; 85025

== ENCOUNTER 2023-05-22 12:47 | Outpatient (AMB) | payer OTHER, SELFPAY ==
--- NOTE | 2023-05-22 13:03 | MHC.OFFVIS ---
Intake Vital Signs 05/22/23 13:04 Height 5 ft 4 in Weight 200 lb 9.93 oz BMI 34.4 BP 128/84 Blood Pressure Location Rt brachial Position Sitting Pulse 97 Pulse Source Doppler Temp 96.2 F L Pulse Oximetry (%) 98 Oxygen Delivery Method Room Air Intake Visit Reasons: COPD Allergies seafood Allergy (Severe, Verified 01/29/23 10:17) Facial Swelling pollen extracts [POLLEN] Allergy (Mild, Verified 01/29/23 10:17) ITCHY EYES apple [APPLES] Allergy (Unknown, Verified 01/29/23 10:17) HIVES egg [EGGS] Allergy (Unknown, Verified 01/29/23 10:17) HIVES peanut [PEANUTS] Allergy (Unknown, Verified 01/29/23 10:17) HIVES HPI COPD HPI Details 63-year-old lady followed for severe persistent asthma, DOLLY, and dyspnea on exertion. She has been using Symbicort 160, Singulair, albuterol MDI and nebs with reasonable control of her underlying symptoms. She continues to use Lasix 40 mg twice a day.? She is following with quill machine tender for underlying diastolic dysfunction.? Patient is using her CPAP with good control of her underlying DOLLY.? She complains of approximately 2 week history of upper respiratory symptoms, but also with sinusitis. [facility] Medical History Asthma Chronic back pain Surgical History No pertinent past surgical history Social History Housing: Apartment Alcohol intake: never Patient Tobacco Use Status: Never used Tobacco e-Cigarette/Vaping Use: Never Used Second Hand Smoke Exposure: No Current occupational status: disabled Cognitive needs: No Hearing needs: No Vision needs: No Review of Systems Const Denies daytime sleepiness, Denies excessive sweating, Denies fatigue, Denies fever(s), Denies lethargy, Denies malaise, Denies night sweats, Denies snoring and Denies weight loss Eyes Denies blurry vision and Denies itchy eyes ENT Reports nasal congestion, Reports post nasal drip, Denies sinus pain, Denies sinus pressure and Denies other ( Thrush) Card Denies chest pain, Denies pedal edema, Denies dyspnea, Denies orthopnea and Denies paroxysmal nocturnal dyspnea Resp Denies cough, Denies hemoptysis, Denies excessive phlegm production, Denies dyspnea, Denies snoring and Denies wheezing GI Denies abdominal pain and Denies heartburn Musc Denies myalgias, Denies arthralgias and Denies joint swelling Skin/Breast Denies rash Neuro Denies memory loss and Denies seizure-like activity Psych Denies abnormal sleep pattern, Denies anxiety and Denies memory loss Endo Denies excessive sweating, Denies fatigue and Denies heat intolerance Ever/Lymph Denies easy bruising Aller/Immun Denies itchy eyes, Denies seasonal rhinorrhea and Denies wheezing Physical Exam Vital Signs: Last Vital Signs Temp 96.2 F L 05/22/23 13:04 Pulse 97 05/22/23 13:04 BP 128/84 05/22/23 13:04 Pulse Ox 98 05/22/23 13:04 Oxygen Delivery Method Room Air 05/22/23 13:04 BMI result Body Mass Index 34.4 Const General: no acute distress and alert Nutritional Appearance: obese Orientation/consciousness: Other orientation findings ( oriented) HEENT Head: Yes atraumatic Eyes General: appearance normal, both eyes and all related structures Sclerae: sclerae normal EOM: EOMs intact bilaterally Neck Neck: Yes supple Lymphatic: no lymphadenopathy noted Resp Effort & Inspection: normal respiratory effort and no use of accessory muscles Auscultation: clear to auscultation bilaterally Cardio Rate: regular rate Rhythm: regular rhythm Heart sounds: no gallops, no murmurs and no rubs Skin General skin exam: other ( warm) Extrem General: No clubbing, No cyanosis and No edema Assessment & Plan Assessment & Plan (1) Moderate persistent asthma: Code(s): J45.40 - Moderate persistent asthma, uncomplicated Plan: Baseline controlled on Symbicort, duo nebs, and albuterol MDI. Continue current regimen. Now with upper respiratory/sinusitis symptoms, will treat with a course of Augmentin. (2) DOLLY on CPAP: Code(s): G47.33 - Obstructive sleep apnea (adult) (pediatric); Z99.89 - Dependence on other enabling machines and devices Plan: Will controlled current CPAP therapy. Continue CPAP therapy. (3) Dyspnea on exertion: Code(s): R06.00 - Dyspnea, unspecified Plan: Reasonably well controlled on Lasix 40 mg twice a day. Continue current regimen. Medications: New albuterol sulfate 90 mcg/actuation 2 puffs inhalation Q4-6H PRN 1 ea 6RF shortness of breath or wheezing 30 days amoxicillin-pot clavulanate 875-125 mg 1 tab PO BID 20 tabs 0RF 10 days Discontinued prednisone Discontinued Reason: Doctor's Order 20 mg PO DAILY 5 tabs 0RF 5 days azithromycin Take 2 tablets today then 1 daily Discontinued Reason: Doctor's Order 250 mg PO ONCE 6 tabs 0RF 5 days J06.9 - Acute upper respiratory infection, unspecified Coding Level of Care Code Est Pt Level 4 (16966) Diagnoses Moderate persistent asthma J45.40 DOLLY on CPAP G47.33; Z99.89 Dyspnea on exertion R06.00
[2023-05-22 13:04] VITALS: BP 128/84; PULSE 97; TEMP 35.7; O2SAT 98; BMI 34.4
== END 2023-05-22 13:18 | disposition home or self-care (01) ==
PROVIDERS: PCP Internal Medicine; Visit Provider Internal Medicine Pulmonary Disease
DX: J45.40 Moderate persistent asthma, uncomplicated (principal); G47.33 Obstructive sleep apnea (adult) (pediatric); Z99.89 Dependence on other enabling machines and devices; R06.00 Dyspnea, unspecified
CPT/HCPCS: 99214

== ENCOUNTER → 2023-05-22 12:47 | Outpatient (BNVA) | payer OTHER, SELFPAY | PROVIDERS: PCP Internal Medicine; Visit Provider Internal Medicine Pulmonary Disease | DX: J45.40 Moderate persistent asthma, uncomplicated (principal); G47.33 Obstructive sleep apnea (adult) (pediatric); R06.00 Dyspnea, unspecified; Z99.89 Dependence on other enabling machines and devices | CPT/HCPCS: 99212 ==

== ENCOUNTER 2023-06-12 15:25 | Outpatient (AMB) | payer OTHER, SELFPAY ==
--- NOTE | 2023-06-12 15:26 | MHC.OFFVIS ---
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 PT states that she is having vv on both legs with bruising,swelling,pain and redness she says is bilateral but that the left one is worst She states it all started about a year ago and that it gets worst bwith walking or standing for long periods of time Allergies seafood Allergy (Severe, Verified 06/12/23 15:29) Facial Swelling pollen extracts [POLLEN] Allergy (Mild, Verified 06/12/23 15:29) ITCHY EYES apple [APPLES] Allergy (Unknown, Verified 06/12/23 15:29) HIVES egg [EGGS] Allergy (Unknown, Verified 06/12/23 15:29) HIVES peanut [PEANUTS] Allergy (Unknown, Verified 06/12/23 15:29) HIVES HPI BACK TENDER [employer]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 Complaints include pain over varicosities, swelling of lower extremities, cramping, fatigue, and heaviness of the lower extremities. It has been affecting there daily activities including walking. It is noted more so in left leg. Of note she smokes 1 and half packs per day Patient denies any previous venous surgery or injections. Patient denies any history of DVT/ PE. Patient denies any history of phlebitis. Trial of compression includes - [id number] They now present for vascular evaluation regarding their varicose veins. [facility] Medical History Asthma Chronic back pain Surgical History No pertinent past surgical history Social History Housing: Apartment Alcohol intake: never Patient Tobacco Use Status: Never used Tobacco e-Cigarette/Vaping Use: Never Used Second Hand Smoke Exposure: No Current occupational status: disabled Cognitive needs: No Hearing needs: No Vision needs: No Review of Systems Const Reports as per HPI ENT Reports no additional complaints Card Denies chest pain, Denies chest pain at rest and Denies chest pain with activity Resp Denies chest congestion and Denies cough GI Reports no additional complaints Musc Details: pain over varicosities, aching of lower extremities, swelling, cramping, heaviness and tiredness, itching Denies abnormal gait Skin/Breast Reports pruritus and Denies wounds Neuro Reports no additional complaints and Denies abnormal gait Psych Denies no additional complaints Physical Exam Const General: cooperative, healthy appearing and comfortable Orientation/consciousness: oriented to person, oriented to place and oriented to time Neck Carotids: no bruits Chest Chest palpation & inspection: normal inspection of the chest and normal palpation of entire chest wall Resp Effort & Inspection: normal respiratory effort and able to speak in complete sentences Cardio Rate: regular rate Heart sounds: S1 normal heart sound present and S2 normal heart sound present Peripheral pulses: Peripheral pulses 2+ throughout GI Inspection: Yes normal to inspection Skin Other: +2 edema, large rope-like varicosities greater than 4 mm left calf and thigh CEAP Classification C5 - healed ulceration Ep - Etiology Primary As - superficial veins P - reflux General skin exam: dry skin Neuro General: oriented to person, oriented to place and oriented to time Extrem Right lower extremity: full ROM, normal capillary refill and edema Left lower extremity: full ROM, normal capillary refill and edema Psych Mental Status: mental status grossly normal Assessment & Plan Assessment & Plan (1) Varicose veins of left lower extremity with inflammation: Code(s): I83.12 - Varicose veins of left lower extremity with inflammation Plan: In short, the patient has evidence of venous insufficiency. I have discussed the pathophysiology with the patient. In addition I have provided informational material regarding venous disease to the patient. We have discussed conservative measures including compression, elevation, and exercise. I have also provided a handout regarding appropriate use of compression stockings and where to purchase good compression stockings as well. I have taken the liberty of ordering venous insufficiency testing with the patient. They will follow up with me after testing. The patient had an opportunity to ask questions regarding the treatment plan. All questions were answered. Imaging studies, laboratory studies and physical exam results were discussed and reviewed in detail. No major barriers to understanding were identified. The patient expressed understanding and agreement with the above treatment plan. The patient is aware they should contact our office by phone for worsening of the current condition or the appearance of new symptoms. Thank you for allowing me to participate in the vascular care of this patient. If you have any questions or concerns regarding the treatment for the above condition please do not hesitate to contact me. The office telephone contact is [phone]. This note is constructed using voice recognition software. While every effort has been made to ensure accuracy, theatrical scenic designer errors may have been included. Thank you for allowing me to participate in the care of your patient. Yours sincerely, Larry Keenan MD, FACS, R.P.V.I. Orders: Orders US venous duplex LE BI 1 Week I83.12 - Varicose veins of left lower extremity with inflammation Coding Level of Care Code New Pt Level 4 (94349) Diagnoses Varicose veins of left lower extremity with inflammation I83.12
== END 2023-06-12 15:46 | disposition home or self-care (01) ==
PROVIDERS: PCP Internal Medicine; Visit Provider Surgery Vascular Surgery
DX: I83.12 Varicose veins of left lower extremity with inflammation (principal)
CPT/HCPCS: 99203

== ENCOUNTER → 2023-06-12 15:25 | Outpatient (BNVA) | payer OTHER, SELFPAY | PROVIDERS: PCP Internal Medicine; Visit Provider Surgery Vascular Surgery ==

== ENCOUNTER 2023-06-25 14:19 | Outpatient (REF) | payer OTHER, SELFPAY | END 2023-06-25 14:20 | disposition home or self-care (01) | LOC: HO.MAMMO 14:19 | PROVIDERS: Visit Provider Internal Medicine | DX: Z12.31 Encounter for screening mammogram for malignant neoplasm of breast (principal) | CPT/HCPCS: 77063; 77067 ==

== ENCOUNTER → 2023-06-25 14:30 | Outpatient (BNV) | payer OTHER, SELFPAY | PROVIDERS: Visit Provider Radiology Diagnostic Radiology | DX: Z12.31 Encounter for screening mammogram for malignant neoplasm of breast (principal) | CPT/HCPCS: 77063; 77067 ==

== ENCOUNTER 2023-07-23 14:55 | Outpatient (AMB) | payer OTHER, SELFPAY ==
--- NOTE | 2023-07-23 14:56 | A.OFFPC_ITS ---
Vital Signs 07/23/23 14:58 Height 5 ft 4 in Weight 200 lb BMI 34.3 BP 140/98 H Blood Pressure Location Rt brachial Position Sitting Pulse 104 H Pulse Source Pulse Oximeter Pulse Oximetry (%) 97 Oxygen Delivery Method Room Air Intake Visit Reasons: follow up COPD Allergies seafood Allergy (Severe, Verified 07/23/23 14:58) Facial Swelling pollen extracts [POLLEN] Allergy (Mild, Verified 07/23/23 14:58) ITCHY EYES apple [APPLES] Allergy (Unknown, Verified 07/23/23 14:58) HIVES egg [EGGS] Allergy (Unknown, Verified 07/23/23 14:58) HIVES peanut [PEANUTS] Allergy (Unknown, Verified 07/23/23 14:58) HIVES Medication List - Last Reconciled 07/23/23 by Nancy Corrales MD acetaminophen ER 650 mg PO Q12H PRN 90 days albuterol sulfate 90 mcg/actuation 2 puffs inhalation Q4-6H PRN 30 days fexofenadine 180 mg PO Q24H 90 days fluticasone propionate 50 mcg/actuation 1 spray intranasal BID furosemide 40 mg PO BID 90 days gabapentin 300 mg PO BID ipratropium bromide 2 sprays intranasal TID ipratropium-albuterol 0.5 mg-3 mg(2.5 mg base)/3 mL 3 mL inhalation Q8H omeprazole 20 mg PO DAILY 90 days Symbicort 160-4.5 mcg/actuation (budesonide-formoterol) 2 puffs inhalation BID NS Tobacco use date assessed: 07/23/23 Dental Screening Dental Screen Date: 07/23/23 Did you have a dental visit in the last 12 months?: No Was dental information given to patient?: Patient has dentist HPI follow up COPD HPI Details Patient is 63-year-old female with BMI of 34.3 came in today with a chief complaint of shortness of breath for the past few days Patient her moderate persistent asthma and COPD Patient says that the symptoms started a week ago with sore throat and then irritated cough Then she started getting short of breath She does have updraft machine at home and medication through community specialist Patient have appointment coming up with family development specialist in 5 days She ran out of Symbicort and can not have a refill until of this month. Her blood pressure is elevated today which usually is when she is feeling like that Allergies are also acting up Patient is on fexofenadine and Flonase nasal spray She also take omeprazole for chronic GERD I am treating her with amoxicillin and prednisone 20 mg once a day for 5 days until she gets in with community specialist [facility] Medical History Chronic back pain Asthma Surgical History No pertinent past surgical history Social History Housing: Apartment Alcohol intake: never Patient Tobacco Use Status: Never used Tobacco e-Cigarette/Vaping Use: Never Used Second Hand Smoke Exposure: No Current occupational status: disabled Cognitive needs: No Hearing needs: No Vision needs: No Questionnaire PHQ-9 Over the last 2 weeks, how often have you been bothered by any of the following problems? 1. Little interest or pleasure in doing things: several days 2. Feeling down, depressed, or hopeless: more than half the days 3. Trouble falling or staying asleep, or sleeping too much: more than half the days 4. Feeling tired or having little energy: several days 5. Poor appetite or overeating: several days 6. Feeling bad about yourself - or that you are a failure or have let yourself or your family down: several days 7. Trouble concentrating on things, such as reading the newspaper or watching television: several days 8. Moving or speaking so slowly that other people could have noticed. Or the opposite - being so fidgety or restless that you have been moving around a lot more than usual: not at all 9. Thoughts that you would be better off or of hurting yourself in some way: not at all Total score: 9 Depression Screening Interpretation: Positive Depression Screening Follow-up: Community Mental Health Worker F/U Depression Screening Done: Yes 58837 - PHQ-9 Billing: Yes Source: Developed by Drs. Osvaldo Zazueta, Katey Farrell, Amari Schaeffer and colleagues, with an educational froylan from [employer]. Thrive Questionnaire Date Thrive assessed: 07/23/23 I am a: Patient What is your living situation today?: I have a steady place to live Within the past 12 months, did the food you bought not last and you didn't have the money to get more?: Never true Within the past 12 months, did you worry whether your food would run out before you got money to buy more?: Never true Do you have trouble paying for medicines?: No Do you have trouble getting transportation to medical appointments?: No Do you have trouble paying your heating and electricity bill?: Yes Do you have trouble taking care of your child, family member or friend?: No Do you have trouble with day-to-day activities such as bathing, preparing meals, shopping, managing finances, etc.?: No Are you currently unemployed and looking for a job?: No Are you interested in more education?: No Please select the resources that you would like help with: None Currently or been in a relationship where the following occur: no concerns reported AUDIT C Alcohol Use Questionnaire (AUDIT-C) 1. How often do you have a drink containing alcohol?: Never Total Score: 0 RUDOLPH-7 AMB Questionnaire RUDOLPH-7 Date RUDOLPH - 7 assessed: 07/23/23 Feeling nervous, anxious, or on edge: 0 = Not at all Not being able to stop or control worryin = Several days Worrying too much about different things: 1 = Several days Trouble relaxin = Not at all Being so restless that it is hard to sit still: 1 = Several days Becoming easily annoyed or irritable: 0 = Not at all Feeling afraid as if something awful might happen: 0 = Not at all Total RUDOLPH-7 score (0-4 normal; 5-9 mild; 10-14 moderate; 15-21 severe): 3 Source: Developed by Drs. Osvaldo Zazueta, Katey Farrell, Amari Schaeffer and colleagues, with an educational froylan from [employer]. RUDOLPH-7 Assessment Billing RUDOLPH-7 Assessment Tool: RUDOLPH-7 Assessment 98259 Review of Systems Const Denies chills and Denies fever(s) ENT Denies epistaxis and Denies nasal discharge Card Denies chest pain Resp Denies hemoptysis GI Denies diarrhea and Denies nausea Skin/Breast Denies rash Neuro Reports no additional complaints Psych Reports no additional complaints Endo Reports no additional complaints Physical exam (Primary Care) Vital Signs: Last Vital Signs Pulse 104 H 07/23/23 14:58 BP 140/98 H 07/23/23 14:58 Pulse Ox 97 07/23/23 14:58 Oxygen Delivery Method Room Air 07/23/23 14:58 BMI result Body Mass Index 34.3 Tobacco/Smoking Status: Tobacco use Status Tobacco use date assessed 07/23/23 07/23/23 14:59 Patient Tobacco Use Status Never used Tobacco 07/23/23 14:59 e-Cigarette/Vaping Use Never Used 07/23/23 14:59 PHQ-9: PHQ-9 Score PHQ-9: Total score 9 07/23/23 15:03 Depression Screening Interpretation: Positive Depression Screening Follow-up: Community Mental Health Worker F/U Thrive Assessment: Date of Thrive Assessment Date Thrive assessed 07/23/23 07/23/23 15:03 Currently or been in a relationship where the following occur: no concerns reported Const General: cooperative, comfortable and no acute distress Orientation/consciousness: patient oriented x3 HENMT Head: Yes normocephalic Eyes General: appearance normal, both eyes and all related structures Neck Neck: Yes supple Resp Other: Wheezing bilateral no stridor, mild shortness of breath which is baseline for the patient when she is having a flare-up Pulse ox 97% room air Effort & Inspection: no stridor Cardio Rhythm: regular rhythm Heart sounds: S1 normal heart sound present and S2 normal heart sound present Skin General skin exam: turgor normal Neuro General: patient oriented x3, tone normal and moves all extremities Extrem Right lower extremity: no edema Left lower extremity: no edema Assessment and Plan Assessment & Plan (1) Asthma exacerbation in COPD: Code(s): J44.1 - Chronic obstructive pulmonary disease with (acute) exacerbation; J45.901 - Unspecified asthma with (acute) exacerbation (2) Chronic GERD: Code(s): K21.9 - Gastro-esophageal reflux disease without esophagitis (3) Environmental allergies: Code(s): Z91.09 - Other allergy status, other than to drugs and biological substances (4) Major depression, recurrent: Comment: Message sent to community health worker for follow-up Code(s): F33.9 - Major depressive disorder, recurrent, unspecified Qualifiers: Active/Remission status: in partial remission Qualified Code(s): F33.41 - Major depressive disorder, recurrent, in partial remission (5) COPD (chronic obstructive pulmonary disease): Code(s): J44.9 - Chronic obstructive pulmonary disease, unspecified Qualifiers: COPD type: emphysema Emphysema type: panlobular Qualified Code(s): J43.1 - Panlobular emphysema (6) Chronic lower back pain: Code(s): M54.50 - Low back pain, unspecified; G89.29 - Other chronic pain Qualifiers: Back pain laterality: midline Sciatica presence: without sciatica Qualified Code(s): M54.50 - Low back pain, unspecified; G89.29 - Other chronic pain (7) Obesity due to excess calories: Code(s): E66.09 - Other obesity due to excess calories Qualifiers: Obesity classification: adult class 1 (BMI 30 - 34.9) Serious obesity comorbidity presence: with serious comorbidity Body mass index: BMI 34.0-34.9 Qualified Code(s): E66.09 - Other obesity due to excess calories; Z68.34 - Body mass index [BMI] 34.0-34.9, adult (8) Moderate persistent asthma: Code(s): J45.40 - Moderate persistent asthma, uncomplicated Qualifiers: Asthma complication type: uncomplicated Qualified Code(s): J45.40 - Moderate persistent asthma, uncomplicated (9) DOLLY on CPAP: Code(s): G47.33 - Obstructive sleep apnea (adult) (pediatric); Z99.89 - Dependence on other enabling machines and devices Plan Patient is 63-year-old female with BMI of 34.3 came in today with a chief complaint of shortness of breath for the past few days Patient her moderate persistent asthma and COPD Patient says that the symptoms started a week ago with sore throat and then irritated cough Then she started getting short of breath She does have updraft machine at home and medication through community specialist Patient have appointment coming up with family development specialist in 5 days She ran out of Symbicort and can not have a refill until of this month. Her blood pressure is elevated today which usually is when she is feeling like that Patient also obstructive sleep apnea Allergies are also acting up Patient is on fexofenadine and Flonase nasal spray She also take omeprazole for chronic GERD I am treating her with amoxicillin and prednisone 20 mg once a day for 5 days until she gets in with community specialist Medications: New prednisone 20 mg PO DAILY 5 days 5 tabs 0RF amoxicillin 875 mg PO BID 7 days 14 tabs 0RF Discontinued amoxicillin-pot clavulanate 875-125 mg Discontinued Reason: Patient Completed Course 1 tab PO BID 10 days 20 tabs 0RF Coding Level of Care Code Est Pt Level 4 (66293) Diagnoses Asthma exacerbation in COPD J44.1; J45.901 Chronic GERD K21.9 Environmental allergies Z91.09 Recurrent major depressive disorder, in partial remission F33.41 Active/Remission status: in partial remission Panlobular emphysema J43.1 COPD type: emphysema Emphysema type: panlobular Chronic midline low back pain without sciatica M54.50; G89.29 Back pain laterality: midline Sciatica presence: without sciatica Class 1 obesity due to excess calories with serious comorbidity and body mass index (BMI) of 34.0 to 34.9 in adult E66.09; Z68.34 Obesity classification: adult class 1 (BMI 30 - 34.9) Serious obesity comorbidity presence: with serious comorbidity Body mass index: BMI 34.0-34.9 Moderate persistent asthma without complication J45.40 Asthma complication type: uncomplicated DOLLY on CPAP G47.33; Z99.89 Additional Codes RUDOLPH-7 Assessment Billing - RUDOLPH-7 Assessment Tool: RUDOLPH-7 Assessment [id number] ([id number])
[2023-07-23 14:58] VITALS: BP 140/98; PULSE 104; O2SAT 97; BMI 34.3
== END 2023-07-23 15:17 | disposition home or self-care (01) ==
PROVIDERS: PCP Internal Medicine; Visit Provider Internal Medicine
DX: J44.1 Chronic obstructive pulmonary disease with (acute) exacerbation (principal); F33.41 Major depressive disorder, recurrent, in partial remission; E66.09 Other obesity due to excess calories; Z68.34 Body mass index [BMI] 34.0-34.9, adult; J45.901 Unspecified asthma with (acute) exacerbation; K21.9 Gastro-esophageal reflux disease without esophagitis; Z91.09 Other allergy status, other than to drugs and biological substances; M54.50 Low back pain, unspecified; G89.29 Other chronic pain; J45.40 Moderate persistent asthma, uncomplicated
CPT/HCPCS: 99214

== ENCOUNTER 2023-08-07 13:34 | Outpatient (AMB) | payer OTHER, SELFPAY ==
--- NOTE | 2023-08-07 13:41 | A.OFFVIS_ITS ---
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 No complaints. Last Pap/HPV ? Last Mammogram was BI-RADS 1 in 06/30 No previous screening Colonoscopy [facility] Medical History Chronic back pain Asthma Surgical History No pertinent past surgical history Social History Housing: Apartment Alcohol intake: never Patient Tobacco Use Status: Never used Tobacco e-Cigarette/Vaping Use: Never Used Second Hand Smoke Exposure: No Current occupational status: disabled Cognitive needs: No Hearing needs: No Vision needs: No Female Reproductive History Menstrual control method: none History of abnormal pap smear: No Review of Systems Const All systems reviewed & are unremarkable except as noted in HPI and below Card Reports as per HPI Resp Reports as per HPI GI Reports as per HPI and Reports no additional complaints Reports as per HPI Physical Exam Vital Signs: Last Vital Signs BP 138/78 08/07/23 13:45 BMI result Body Mass Index 34.7 Const General: cooperative, healthy appearing and comfortable Chest Chest palpation & inspection: normal inspection of the chest and normal palpation of entire chest wall Breast/axilla inspection: normal inspection of the breasts and normal inspection of the axillae Breast/axilla palpation: normal palpation of the breasts, normal palpation of the axillae and no axillary lymphadenopathy Resp Effort & Inspection: normal respiratory effort Auscultation: clear to auscultation bilaterally Percussion: percussion normal Cardio Palpation: normal PMI Rate: regular rate Rhythm: regular rhythm Heart sounds: no murmurs and no rubs Peripheral pulses: Peripheral pulses 2+ throughout GI Inspection: Yes normal to inspection Palpation (GI): Soft to palpation, nontender, no guarding, not rigid and No hepatosplenomegaly present Percussion: Yes normal to percussion Auscultation: normal bowel sounds Rectal Exam - Female: deferred General: Yes bladder normal to palpation External Female Exam: No lesion Speculum Exam - Vagina: normal appearance of the vagina, normal palpation, normal vaginal discharge and not erythematous Speculum Exam - Cervix: normal appearance of the cervix and normal palpation Bimanual exam- vagina & uterus: normal bimanual exam, normal palpation, uterine size normal, bladder normal to palpation, consistency normal and normal palpation Bimanual Exam- Adnexa, other: normal adnexae, no masses and no tenderness Assessment & Plan Assessment & Plan (1) Well woman exam: Code(s): Z01.419 - Encounter for gynecological examination (general) (routine) without abnormal findings Plan: Co testing done. Counseled the patient about the recommended dietary allowance of 1200 mg of Calcium & 600 IU of vitamin D. Instructions given to patient to schedule her next screen Mammogram in 07/01 The patient was referred to GI for screening colonoscopy . The patient was instructed to perform monthly self-breast exams and schedule annual exam in a year. All questions answered and the patient verbalized understanding. Orders: Referrals Gastroenterology Referral Z12.11 - Encounter for screening for malignant neoplasm of colon Coding Level of Care Code Est Pt Prev Care 40-64y(95210) Diagnoses Well woman exam Z01.419
[2023-08-07 13:45] VITALS: BP 138/78; BMI 34.7
== END 2023-08-07 14:06 | disposition home or self-care (01) ==
PROVIDERS: PCP Internal Medicine; Visit Provider Obstetrics & Gynecology
DX: Z01.419 Encounter for gynecological examination (general) (routine) without abnormal findings (principal)
CPT/HCPCS: 99396

== ENCOUNTER 2023-08-07 13:34 | Outpatient (REF) | payer OTHER, SELFPAY ==
[2023-08-12 05:28] LABS: HPV mRNA E6/E7 rflx Not Detected (Not Detected)
== END 2023-08-07 13:35 | disposition home or self-care (01) ==
LOC: HO.LAB 13:34
PROVIDERS: PCP Internal Medicine; Visit Provider Obstetrics & Gynecology
DX: Z01.419 Encounter for gynecological examination (general) (routine) without abnormal findings (principal); Z11.51 Encounter for screening for human papillomavirus (HPV)
CPT/HCPCS: 87624; 88142

== ENCOUNTER 2023-09-12 12:44 | Outpatient (REF) | payer OTHER, SELFPAY ==
--- NOTE | ~2023-09-12 | US_ITS ---
EXAMINATION: US LOWER EXTREMITY VENOUS (REFLUX EXAM), BILATERAL CLINICAL INDICATION: Chronic venous insufficiency with lower extremity varicose veins with inflammation COMPARISON: None. TECHNIQUE: Color flow triplex imaging and compression Doppler was performed to evaluate both the deep and the superficial systems bilaterally. To evaluate the superficial system, the examination was performed in the upright position. Color-flow Doppler ultrasound and compression ultrasound were utilized. In addition, maneuvers were utilized to demonstrate reflux. FINDINGS: 1. DEEP VENOUS ULTRASOUND OF THE RIGHT LOWER EXTREMITY: Common Femoral Vein: Compressible, normal respiratory variation and augmented flow. Femoral Vein: Compressible, normal color flow and augmentation. Popliteal Vein: Compressible, normal augmentation. Deep Reflux: There is no evidence of reflux in the deep system in either the common femoral vein, superficial femoral or the popliteal vein. There is no evidence of a Valdez's cyst. 2. SUPERFICIAL ULTRASOUND WITH DOPPLER OF RIGHT LOWER EXTREMITY: GREAT SAPHENOUS VEIN: Saphenofemoral Junction: 0.6 cm; Reflux: 0 ms Proximal Thigh: 0.6 cm; Reflux: 2208 ms Mid Thigh: 0.2 cm; Reflux: 0 ms Above Knee: 0.1 cm; Reflux: 0 ms At Knee: 0.1 cm; Reflux: 0 ms Below Knee: 0.1 cm; Reflux: 0 ms Mid Calf: 0.2 cm; Reflux: 0 ms Ankle: 0.2 cm; Reflux: 0 ms DUPLICATED MEDIAL GREAT SAPHENOUS VEIN: Diameter: None imaged Reflux: NA DUPLICATED LATERAL GREAT SAPHENOUS VEIN: Diameter: None imaged Reflux: NA SMALL SAPHENOUS VEIN: Proximal: 0.2 cm; Reflux: 0 ms Distal: 0.2 cm; Reflux: 0 ms VEIN OF GIACOMINI: Size: NA Reflux: NA PERFORATORS: Location: None imaged Size: NA Reflux: NA VARICOSITIES: Location: Proximal thigh off the great saphenous vein extending down the thigh and calf Size: 0.4 cm Reflux: 2512 ms 3. DEEP VENOUS ULTRASOUND OF THE LEFT LOWER EXTREMITY: Common Femoral Vein: Compressible, normal respiratory variation and augmented flow. Femoral Vein: Compressible, normal color flow and augmentation. Popliteal Vein: Compressible, normal augmentation. Deep Reflux: There is no evidence of reflux in the deep system in either the common femoral vein, superficial femoral or the popliteal vein. There is no evidence of a Valdez's cyst. 4. SUPERFICIAL ULTRASOUND WITH DOPPLER OF LEFT LOWER EXTREMITY: GREAT SAPHENOUS VEIN: Saphenofemoral Junction: 1.1 cm; Reflux: 2236 ms Proximal Thigh: 1.4 cm; Reflux: 2524 ms Mid Thigh: 0.6 cm; Reflux: 2304 ms Above Knee: 0.5 cm; Reflux: 2440 ms At Knee: 0.4 cm; Reflux: 2624 ms Below Knee: 1.2 cm; Reflux: 2664 ms Mid Calf: 0.4 cm; Reflux: 2632 ms Ankle: 0.1 cm; Reflux: 0 ms DUPLICATED MEDIAL GREAT SAPHENOUS VEIN: Diameter: None imaged Reflux: NA DUPLICATED LATERAL GREAT SAPHENOUS VEIN: Diameter: None imaged Reflux: NA SMALL SAPHENOUS VEIN: Proximal: 0.3 cm; Reflux: 0 ms Distal: 0.2 cm; Reflux: 0 ms VEIN OF GIACOMINI: Size: NA Reflux: NA PERFORATORS: Location: Mid thigh, posterior calf and medial calf Size: 0.1 to 0.4 cm Reflux: 1928 ms in the mid to thigh. Remaining perforators show no significant reflux VARICOSITIES: Location: Extensive varicosities arising from the great saphenous vein throughout the calf. There is also varicose vein arising from the mid small saphenous vein Size: 0.3 to 0.4 cm Reflux: 2352 ms to 2600 ms US/US venous duplex LE BI IMPRESSION: Right: Focal reflux in the proximal great saphenous vein with a large varicosity arising from this region extending throughout the right lower extremity Left: Diffuse severe reflux throughout the great saphenous vein with multiple branching varicose veins as described above
== END 2023-09-12 12:45 | disposition home or self-care (01) ==
LOC: HO.US 12:44
PROVIDERS: PCP Internal Medicine; Visit Provider Surgery Vascular Surgery
DX: I83.12 Varicose veins of left lower extremity with inflammation (principal)
CPT/HCPCS: 93970

== ENCOUNTER 2023-11-04 14:45 | Outpatient (AMB) | payer OTHER, SELFPAY ==
--- NOTE | 2023-11-04 14:50 | MHC.OFFVIS ---
Intake Vital Signs 11/04/23 14:51 Height 5 ft 4 in Weight 202 lb BMI 34.7 Intake Visit Reasons: Follow Up 09/12 US Intake Note: Patient presents for a follow up US that was performed on 09/12/23. No pain swelling or redness. Accompanied by: Child Allergies seafood Allergy (Severe, Verified 08/07/23 13:50) Facial Swelling pollen extracts [POLLEN] Allergy (Mild, Verified 08/07/23 13:50) ITCHY EYES apple [APPLES] Allergy (Unknown, Verified 08/07/23 13:50) HIVES egg [EGGS] Allergy (Unknown, Verified 08/07/23 13:50) HIVES peanut [PEANUTS] Allergy (Unknown, Verified 08/07/23 13:50) HIVES garlic Adverse Reaction (Intermediate, Verified 11/04/23 14:56) Face swelling HPI Follow Up 09/12 US HPI Details Very pleasant 63-year-old female presents for routine follow-up regarding venous insufficiency. She has significant swollen and uncomfortable legs of both lower extremities. She does have large varicosities of bilateral lower extremities. They have been extremely tortuous and uncomfortable for her. She now presents for routine follow-up with venous insufficiency testing. [facility] Medical History Chronic back pain Asthma Surgical History No pertinent past surgical history Social History Housing: Apartment Alcohol intake: never Patient Tobacco Use Status: Never used Tobacco e-Cigarette/Vaping Use: Never Used Second Hand Smoke Exposure: No Current occupational status: disabled Cognitive needs: No Hearing needs: No Vision needs: No Review of Systems Const Reports as per HPI ENT Reports no additional complaints Card Denies chest pain, Denies chest pain at rest and Denies chest pain with activity Resp Denies chest congestion and Denies cough GI Reports no additional complaints Musc Details: pain over varicosities, aching of lower extremities, swelling, cramping, heaviness and tiredness, itching Denies abnormal gait Skin/Breast Reports pruritus and Denies wounds Neuro Reports no additional complaints and Denies abnormal gait Psych Denies no additional complaints Physical Exam Vital Signs: BMI result Body Mass Index 34.7 Const General: cooperative, healthy appearing and comfortable Orientation/consciousness: oriented to person, oriented to place and oriented to time Neck Carotids: no bruits Chest Chest palpation & inspection: normal inspection of the chest and normal palpation of entire chest wall Resp Effort & Inspection: normal respiratory effort and able to speak in complete sentences Cardio Rate: regular rate Heart sounds: S1 normal heart sound present and S2 normal heart sound present Peripheral pulses: Peripheral pulses 2+ throughout GI Inspection: Yes normal to inspection Skin Other: +2 edema, large rope-like varicosities greater than 4 mm left calf and thigh CEAP Classification C5 - healed ulceration Ep - Etiology Primary As - superficial veins P - reflux General skin exam: dry skin Neuro General: oriented to person, oriented to place and oriented to time Extrem Right lower extremity: full ROM, normal capillary refill and edema Left lower extremity: full ROM, normal capillary refill and edema Psych Mental Status: mental status grossly normal Assessment & Plan Assessment & Plan (1) Varicose veins of left lower extremity with inflammation: Code(s): I83.12 - Varicose veins of left lower extremity with inflammation Plan: This patient has varicose veins with inflammation. They continue to be a source of discomfort for the patient. The patient has tried conservative treatment with compression, leg elevation and exercise program for over 3 months time. They have been compliant with all treatment. This has provided minimal relief for the patient. I do not anticipate this course of treatment will alter the underlying etiology. The patient has been scheduled for lower extremity venous treatment inclusive of --- left great saphenous vein radiofrequency ablation. Risks, benefits, and complications of this procedure has been discussed in detail with the patient including but not limited to bleeding, infection, and the development of a DVT. The patient has demonstrated a clear understanding and has consented. We will schedule the patient as soon as possible. Thank you for allowing us to participate in this patient's care. If there are any questions or concerns please do not hesitate to contact us. Coding Level of Care Code Est Pt Level 4 (77536) Diagnoses Varicose veins of left lower extremity with inflammation I83.12
[2023-11-04 14:51] VITALS: BMI 34.7
== END 2023-11-04 15:13 | disposition home or self-care (01) ==
PROVIDERS: PCP Internal Medicine; Visit Provider Surgery Vascular Surgery
DX: I83.12 Varicose veins of left lower extremity with inflammation (principal)
CPT/HCPCS: 99214

== ENCOUNTER → 2023-11-04 14:45 | Outpatient (BNVA) | payer OTHER, SELFPAY | PROVIDERS: PCP Internal Medicine; Visit Provider Surgery Vascular Surgery | DX: I83.12 Varicose veins of left lower extremity with inflammation (principal) | CPT/HCPCS: 99212 ==

== ENCOUNTER 2023-11-20 12:42 | Outpatient (AMB) | payer OTHER, SELFPAY ==
[2023-11-20 13:02] VITALS: BP 118/64; PULSE 109; O2SAT 94; BMI 34.6
--- NOTE | 2023-11-20 13:02 | MHC.OFFVIS ---
Intake Vital Signs 11/20/23 13:02 Height 5 ft 4 in Weight 201 lb 11.567 oz BMI 34.6 BP 118/64 Blood Pressure Location Lt brachial Position Sitting Pulse 109 H Pulse Source Doppler Pulse Oximetry (%) 94 Oxygen Delivery Method Room Air Intake Visit Reasons: COPD Allergies seafood Allergy (Severe, Verified 11/20/23 13:12) Facial Swelling pollen extracts [POLLEN] Allergy (Mild, Verified 11/20/23 13:12) ITCHY EYES apple [APPLES] Allergy (Unknown, Verified 11/20/23 13:12) HIVES egg [EGGS] Allergy (Unknown, Verified 11/20/23 13:12) HIVES peanut [PEANUTS] Allergy (Unknown, Verified 11/20/23 13:12) HIVES garlic Adverse Reaction (Intermediate, Verified 11/20/23 13:12) Face swelling HPI COPD HPI Details 63-year-old lady followed for severe persistent asthma, DOLLY, and dyspnea on exertion. She has been using Symbicort 160, Singulair, albuterol MDI and nebs with reasonable control of her underlying symptoms. She continues to use Lasix 40 mg twice a day.? She is following with head golf coach for underlying diastolic dysfunction.? Patient is using her CPAP with good control of her underlying DOLLY.? She complains of approximately 2 week history of upper respiratory symptoms, but also fever and sore throat. [facility], [facility] Medical History Chronic back pain Asthma Surgical History No pertinent past surgical history Social History Housing: Apartment Alcohol intake: never Patient Tobacco Use Status: Never used Tobacco e-Cigarette/Vaping Use: Never Used Second Hand Smoke Exposure: No Current occupational status: disabled Cognitive needs: No Hearing needs: No Vision needs: No Review of Systems Const Denies daytime sleepiness, Denies excessive sweating, Denies fatigue, Reports fever(s), Denies lethargy, Reports malaise, Denies night sweats, Denies snoring and Denies weight loss Eyes Denies blurry vision and Denies itchy eyes ENT Denies nasal congestion, Denies post nasal drip, Denies sinus pain, Denies sinus pressure and Denies other ( Thrush) Card Denies chest pain, Denies pedal edema, Denies dyspnea, Denies orthopnea and Denies paroxysmal nocturnal dyspnea Resp Reports cough, Denies hemoptysis, Reports excessive phlegm production, Denies dyspnea, Denies snoring and Denies wheezing GI Denies abdominal pain and Denies heartburn Musc Denies myalgias, Denies arthralgias and Denies joint swelling Skin/Breast Denies rash Neuro Denies memory loss and Denies seizure-like activity Psych Denies abnormal sleep pattern, Denies anxiety and Denies memory loss Endo Denies excessive sweating, Denies fatigue and Denies heat intolerance Eevr/Lymph Denies easy bruising Aller/Immun Denies itchy eyes, Denies seasonal rhinorrhea and Denies wheezing Physical Exam Vital Signs: Last Vital Signs Pulse 109 H 11/20/23 13:02 BP 118/64 11/20/23 13:02 Pulse Ox 94 11/20/23 13:02 Oxygen Delivery Method Room Air 11/20/23 13:02 BMI result Body Mass Index 34.6 Const General: no acute distress and alert Nutritional Appearance: not obese Orientation/consciousness: Other orientation findings ( oriented) HEENT Head: Yes atraumatic Eyes General: appearance normal, both eyes and all related structures Sclerae: sclerae normal EOM: EOMs intact bilaterally Neck Neck: Yes supple Lymphatic: no lymphadenopathy noted Resp Effort & Inspection: normal respiratory effort and no use of accessory muscles Auscultation: clear to auscultation bilaterally Cardio Rate: regular rate Rhythm: regular rhythm Heart sounds: no gallops, no murmurs and no rubs Skin General skin exam: other ( warm) Extrem General: No clubbing, No cyanosis and No edema Assessment & Plan Assessment & Plan (1) DOLLY on CPAP: Code(s): G47.33 - Obstructive sleep apnea (adult) (pediatric); Z99.89 - Dependence on other enabling machines and devices Plan: Well controlled on current CPAP therapy. Continue CPAP therapy. (2) Upper respiratory infection: Code(s): J06.9 - Acute upper respiratory infection, unspecified Plan: Will check RSV/flu/COVID swab. Will treat with a course of prednisone and Augmentin. (3) Moderate persistent asthma: Code(s): J45.40 - Moderate persistent asthma, uncomplicated Qualifiers: Asthma complication type: uncomplicated Qualified Code(s): J45.40 - Moderate persistent asthma, uncomplicated Plan: Well controlled on Symbicort, duo nebs, and albuterol MDI. Continue current regimen. (4) Dyspnea on exertion: Code(s): R06.00 - Dyspnea, unspecified Plan: Reasonable control on Lasix 40 mg twice a day. Continue current regimen. (5) Environmental allergies: Code(s): Z91.09 - Other allergy status, other than to drugs and biological substances Plan: Controlled on Flonase and Sylwia. Orders: Orders SARS-CoV2/FLU/RSV Today J06.9 - Acute upper respiratory infection, unspecified Medications: New amoxicillin-pot clavulanate 875-125 mg 1 tab PO BID 20 tabs 0RF J06.9 - Acute upper respiratory infection, unspecified prednisone 40 mg (2 x 20 mg) PO DAILY 10 tabs 0RF J06.9 - Acute upper respiratory infection, unspecified Discontinued prednisone Discontinued Reason: Doctor's Order 20 mg PO DAILY 5 tabs 0RF 5 days Coding Level of Care Code Est Pt Level 5 (56985) Diagnoses DOLLY on CPAP G47.33; Z99.89 Upper respiratory infection J06.9 Moderate persistent asthma without complication J45.40 Asthma complication type: uncomplicated Dyspnea on exertion R06.00 Environmental allergies Z91.09
== END 2023-11-20 13:23 | disposition home or self-care (01) ==
PROVIDERS: PCP Internal Medicine; Visit Provider Internal Medicine Pulmonary Disease
DX: G47.33 Obstructive sleep apnea (adult) (pediatric) (principal); Z99.89 Dependence on other enabling machines and devices; J06.9 Acute upper respiratory infection, unspecified; J45.40 Moderate persistent asthma, uncomplicated
CPT/HCPCS: 99214

== ENCOUNTER 2023-11-20 12:42 | Outpatient (REF) | payer OTHER, SELFPAY ==
[2023-11-20 14:33] LABS: Influenza A PCR NEGATIVE (Negative); Influenza B PCR NEGATIVE (Negative); Resp Syncy Virus RNA Qual PCR NEGATIVE (Negative); SARS COV2 PCR INHOUSE NEGATIVE (Negative)
== END 2023-11-20 12:43 | disposition home or self-care (01) ==
LOC: HO.LNP 12:42
PROVIDERS: PCP Internal Medicine; Visit Provider Internal Medicine Pulmonary Disease
DX: J06.9 Acute upper respiratory infection, unspecified (principal); J44.9 Chronic obstructive pulmonary disease, unspecified; J45.51 Severe persistent asthma with (acute) exacerbation; G47.33 Obstructive sleep apnea (adult) (pediatric); J45.40 Moderate persistent asthma, uncomplicated; R06.00 Dyspnea, unspecified; Z91.09 Other allergy status, other than to drugs and biological substances; Z99.89 Dependence on other enabling machines and devices; Z79.899 Other long term (current) drug therapy
CPT/HCPCS: 0241U; 99212

== ENCOUNTER 2023-12-12 09:28 | Outpatient (AMB) | payer OTHER, SELFPAY ==
[2023-12-12 09:32] VITALS: BMI 34.5
--- NOTE | 2023-12-12 09:32 | A.OFFVIS_ITS ---
Intake Vital Signs 04 09:32 Height 5 ft 4 in Weight 201 lb BMI 34.5 Intake Visit Reasons: Left GSV RFA Allergies seafood Allergy (Severe, Verified 12/12/23 09:33) Facial Swelling pollen extracts [POLLEN] Allergy (Mild, Verified 12/12/23 09:33) ITCHY EYES apple [APPLES] Allergy (Unknown, Verified 12/12/23 09:33) HIVES egg [EGGS] Allergy (Unknown, Verified 12/12/23 09:33) HIVES peanut [PEANUTS] Allergy (Unknown, Verified 12/12/23 09:33) HIVES garlic Adverse Reaction (Intermediate, Verified 12/12/23 09:33) Face swelling PFSH Medical History Chronic back pain Asthma Surgical History No pertinent past surgical history Social History Housing: Apartment Alcohol intake: never Patient Tobacco Use Status: Never used Tobacco e-Cigarette/Vaping Use: Never Used Second Hand Smoke Exposure: No Current occupational status: disabled Cognitive needs: No Hearing needs: No Vision needs: No Physical Exam Vital Signs: BMI result Body Mass Index 34.5 Office Procedures Vascular Office Procedure Details Details: Diagnosis: Varicose veins with inflammation of left leg Procedure: Endovenous radiofrequency ablation of the left great saphenous vein(s) of the lower extremity. Anesthesia: Local infiltration 10 cc, Tumescent 200 cc. Estimated Blood Loss: Minimal Specimen: Varicose veins The patient was transferred to the procedure suite and the insufficient saphenous vein was mapped by ultrasound and diagrammed on the overlying skin. The depth and diameter of the vein(s) to be treated was documented. The varicose tributary veins and suitable access sites were identified and mapped as well. The patient was then positioned supine on the procedure table. The affected limb was prepped and draped in the usual sterile fashion. The RF catheter was placed on the sterile field, flushed and wiped down, prepared, and connected by a sterile cable. The patient was placed in reverse- Trendelenburg position and local anesthesia was instilled in the skin overlying the access site. A skin incision was made overlying the identified and mapped great saphenous vein entry site. The vein was accessed using ultrasound guidance and the Seldinger technique, a guide wire was introduced through the needle, which was then exchanged over the guide wire for a 7F sheath, which was secured in place. The guide wire was removed and the sheath was flushed. The RF catheter was placed into the vein through the sheath and preferentially, imaging was used to place the catheter tip just inferior to the superficial epigastric vein to preserve normal physiological flow in that vein. Additionally, it was confirmed by ultrasound guidance that the catheter tip was also placed a minimum of 1.5cm distal to the saphenofemoral junction. After the RF catheter position was verified by ultrasound, tumescent anesthesia was infiltrated, under ultrasound guidance, precisely into the perivenous compartment along the entire length of vein from the entry site to the saphenofemoral junction until a halo of fluid was noted around the vein. The patient was then placed in Trendelenburg position to further exsanguinate the superficial venous system. After RF catheter position was again confirmed w ith ultrasound imaging, and under direct external compression along the length of the heating element, RF energy was applied. The vein was segmentally ablated by heating a 7 cm segment and then indexing the catheter forward by 6.5 cm until the treatment length is completed. Device temperature was maintained at 120 plus or minus 5 degrees C with an initial power level of 40W dropping to below 20W for each treatment. Total vein length treated 14 cm Total cycles of RF 4. Repeat ultrasound of the saphenous vein was performed, confirming successful treatment. The catheter and sheath were withdrawn and hemostasis established with direct pressure. After assuring hemostasis, the skin incision over the saphenous vein was closed with a bandage and a compression wrap, and/ or graduated compression stocking was applied from the level of the foot to the most proximal level of the thigh. 36803 - Endovenous RF, 1st Vein All charges added?: Procedure code (CPT) selection complete Assessment & Plan Assessment & Plan (1) Varicose veins of left lower extremity with inflammation: Comment: 12/12/2023 - left GSV Radiofrequency ablation Code(s): I83.12 - Varicose veins of left lower extremity with inflammation Plan: See op note Coding Level of Care Code Procedure Only Diagnoses Varicose veins of left lower extremity with inflammation I83.12 CPT Codes Details - Vascular 1: 62118 - Endovenous RF, 1st Vein ([id number])
== END 2023-12-12 10:26 | disposition home or self-care (01) ==
PROVIDERS: PCP Internal Medicine; Visit Provider Surgery Vascular Surgery
DX: I83.12 Varicose veins of left lower extremity with inflammation (principal)
CPT/HCPCS: 36475

== ENCOUNTER → 2023-12-12 09:28 | Outpatient (BNVA) | payer OTHER, SELFPAY | PROVIDERS: PCP Internal Medicine; Visit Provider Surgery Vascular Surgery | DX: I83.12 Varicose veins of left lower extremity with inflammation (principal) | CPT/HCPCS: 36475 ==

== ENCOUNTER 2023-12-15 10:45 | Outpatient (REF) | payer OTHER, SELFPAY ==
--- NOTE | ~2023-12-15 | US_ITS ---
EXAMINATION: TRIPLEX SCANNING OF LEFT LOWER EXTREMITY; SUPERFICIAL ULTRASOUND WITH DOPPLER OF LEFT LOWER EXTREMITY CLINICAL INFORMATION: Status post RF ablation of the left great saphenous vein originally performed on 12/13/2023. COMPARISON: Preprocedure ultrasound, 09/12/2023. TECHNIQUE: Color-flow triplex imaging and compression Doppler were performed as well as superficial ultrasound with Doppler. FINDINGS: TRIPLEX SCANNING OF LEFT LOWER EXTREMITY: Respiratory variation, normal compression and augmented flow are noted throughout the lower extremity. The visualized common femoral vein (see below), femoral vein, profunda femoral vein, popliteal vein and the calf veins show no evidence of deep venous thrombosis. There is no evidence of Valdez's cyst. SUPERFICIAL ULTRASOUND WITH DOPPLER OF LEFT LOWER EXTREMITY: The left great saphenous vein is occluded from the access site to the saphenofemoral junction. Thrombus reaches the saphenofemoral junction but does not extend into the femoral vein. US/US venous duplex LE LT IMPRESSION: 1. Normal triplex scan of the left without evidence of deep venous thrombosis. 2. Thrombus in the ablated left great saphenous vein extends directly up to the saphenofemoral junction but not into the femoral vein.
== END 2023-12-15 10:46 | disposition home or self-care (01) ==
LOC: HO.US 10:45
PROVIDERS: PCP Internal Medicine; Visit Provider Surgery Vascular Surgery
DX: M79.605 Pain in left leg (principal)
CPT/HCPCS: 93971

== ENCOUNTER 2023-12-30 13:49 | Outpatient (AMB) | payer OTHER, SELFPAY ==
[2023-12-30 13:53] VITALS: BP 138/82; PULSE 99; O2SAT 98; BMI 33.6
--- NOTE | 2023-12-30 13:53 | A.OFFVIS_ITS ---
Vital Signs 12/30/23 13:53 Height 5 ft 4 in Weight 196 lb BMI 33.6 BP 138/82 Blood Pressure Location Rt brachial Position Sitting Pulse 99 Pulse Source Doppler Pulse Oximetry (%) 98 Oxygen Delivery Method Room Air Intake Visit Reasons: COPD Allergies seafood Allergy (Severe, Verified 12/12/23 09:33) Facial Swelling pollen extracts [POLLEN] Allergy (Mild, Verified 12/12/23:) ITCHY EYES apple [APPLES] Allergy (Unknown, Verified 12/12/23:) HIVES egg [EGGS] Allergy (Unknown, Verified 12/12/23:) HIVES peanut [PEANUTS] Allergy (Unknown, Verified 12/12/23:) HIVES garlic Adverse Reaction (Intermediate, Verified 12/12/23:) Face swelling HPI HPI COPD: Details: 63-year-old lady followed for severe persistent asthma, DOLLY, and dyspnea on exertion. She has been using Symbicort 160, Singulair, albuterol MDI and nebs with reasonable control of her underlying symptoms. She continues to use Lasix 40 mg twice a day.? She is following with industrial designer for underlying diastolic dysfunction.? Patient is using her CPAP with good control of her underlying DOLLY.?After the last office visit under course of antibiotics patient's throat and fever have resolved, however now she complains of cough productive of yellowish sputum and seasonal allergy symptoms PFSH Medical History Chronic back pain Asthma Surgical History No pertinent past surgical history Social History Housing: Apartment Alcohol intake: never Patient Tobacco Use Status: Never used Tobacco e-Cigarette/Vaping Use: Never Used Second Hand Smoke Exposure: No Current occupational status: disabled Cognitive needs: No Hearing needs: No Vision needs: No Review of Systems Const Denies daytime sleepiness, Denies excessive sweating, Denies fatigue, Denies fever(s), Denies lethargy, Denies malaise, Denies night sweats, Denies snoring and Denies weight loss Eyes Denies blurry vision and Denies itchy eyes ENT Denies nasal congestion, Denies post nasal drip, Denies sinus pain, Denies sinus pressure and Denies other ( Thrush) Card Denies chest pain, Denies pedal edema, Denies dyspnea, Denies orthopnea and Denies paroxysmal nocturnal dyspnea Resp Reports cough, Denies hemoptysis, Reports excessive phlegm production, Denies dyspnea, Denies snoring and Denies wheezing GI Denies abdominal pain and Denies heartburn Musc Denies myalgias, Denies arthralgias and Denies joint swelling Skin/Breast Denies rash Neuro Denies memory loss and Denies seizure-like activity Psych Denies abnormal sleep pattern, Denies anxiety and Denies memory loss Endo Denies excessive sweating, Denies fatigue and Denies heat intolerance Ever/Lymph Denies easy bruising Aller/Immun Denies itchy eyes, Denies seasonal rhinorrhea and Denies wheezing Physical Exam Vital Signs: Last Vital Signs Pulse 99 12/30/23 13:53 BP 138/82 12/30/23 13:53 Pulse Ox 98 12/30/23 13:53 Oxygen Delivery Method Room Air 12/30/23 13:53 BMI result Body Mass Index 33.6 Const General: no acute distress and alert Nutritional Appearance: not obese Orientation/consciousness: Other orientation findings ( oriented) HEENT Head: Yes atraumatic Eyes General: appearance normal, both eyes and all related structures Sclerae: sclerae normal EOM: EOMs intact bilaterally Neck Neck: Yes supple Lymphatic: no lymphadenopathy noted Resp Effort & Inspection: normal respiratory effort and no use of accessory muscles Auscultation: clear to auscultation bilaterally Cardio Rate: regular rate Rhythm: regular rhythm Heart sounds: no gallops, no murmurs and no rubs Skin General skin exam: other ( warm) Extrem General: No clubbing, No cyanosis and No edema Assessment & Plan Assessment & Plan (1) Environmental allergies: Code(s): Z91.09 - Other allergy status, other than to drugs and biological substances Category: Medical Plan: worsening control on Singulair. Will obtain RAST, IgE level, and CBC with differential for further evaluation. (2) DOLLY on CPAP: Code(s): G47.33 - Obstructive sleep apnea (adult) (pediatric); Z99.89 - Dependence on other enabling machines and devices Category: Medical Plan: Well controlled on current CPAP therapy. Continue CPAP therapy. (3) Moderate persistent asthma: Code(s): J45.40 - Moderate persistent asthma, uncomplicated Category: Medical Qualifiers: Asthma complication type: uncomplicated Qualified Code(s): J45.40 - Moderate persistent asthma, uncomplicated Plan: Baseline controlled on Symbicort, duo nebs, and albuterol MDI. Continue current regimen. Will treat exacerbation with a prednisone /Levaquin course. Orders: Orders Resp Allergy Profile Region I Today Z91.09 - Other allergy status, other than to drugs and biological substances Medications: New prednisone take 4 tabs daily for 7 days, then go down by 1 tab every 7 days. 10 mg PO DIRECTED 70 tabs 0RF levofloxacin 750 mg PO DAILY 10 tabs 0RF Discontinued prednisone Discontinued Reason: Doctor's Order 40 mg (2 x 20 mg) PO DAILY 10 tabs 0RF J06.9 - Acute upper respiratory infection, unspecified Coding Level of Care Code Est Pt Level 4 (21054) Diagnoses Environmental allergies Z91.09 DOLLY on CPAP G47.33; Z99.89 Moderate persistent asthma without complication J45.40 Asthma complication type: uncomplicated
== END 2023-12-30 14:02 | disposition home or self-care (01) ==
PROVIDERS: PCP Internal Medicine; Visit Provider Internal Medicine Pulmonary Disease
DX: Z91.09 Other allergy status, other than to drugs and biological substances (principal); G47.33 Obstructive sleep apnea (adult) (pediatric); Z99.89 Dependence on other enabling machines and devices; J45.40 Moderate persistent asthma, uncomplicated
CPT/HCPCS: 99214

== ENCOUNTER 2023-12-30 13:49 | Outpatient (REF) | payer OTHER, SELFPAY ==
[2024-01-01 12:44] LABS: Class Alternaria alternata 0; Class Aspergillus fumigatus 0; Class Bermuda Grass 0; Class Birch 3; Class Cat Dander 0; Class Cladosporium herbarum 0; Class Cockroach 0; Class Common Ragweed 2; Class Cottonwood 0; Class Derm. pterony 0; Class Dermatophagoides farinae 0; Class Dog Dander 0; Class Elm 0; Class Maple Box Elder 0/1; Class Mountain Cedar 0; Class Mouse Urine Protein 0; Class Mugwort 0; Class Oak 2; Class Penicillium crysogenum 0; Class Rough Pigweed 0; Class Sheep Sorrel 0; Class Sycamore 0; Class Timothy Grass 0; Class Walnut Tree 0; Class White Ash 0; Class White Mulberry 0; D001 IgE D pteronyssinus <0.10 kU/L; D002 - IgE D farinae <0.10 kU/L; E001 - IgE Cat Dander <0.10 kU/L; E005 - IgE Dog Dander <0.10 kU/L; E072-IgE Mouse Urine <0.10 kU/L; G002 IgE Bermuda Grass <0.10 kU/L; G006 - IgE Timothy Grass <0.10 kU/L; I006-IgE Cockroach, German <0.10 kU/L; Immunoglobulin E 77 kU/L (<OR=114); M001 IgE Penicillium chrysogen <0.10 kU/L; M002 - IgE Cladosporium herbar <0.10 kU/L; M003 - IgE Aspergillus fumigat <0.10 kU/L; M006 - IgE Alternaria alternat <0.10 kU/L; T001 IgE Maple/Box Elder 0.34 kU/L; T003 IgE Common Silver Birch 4.73 kU/L; T006 - IgE Cedar, Mountain <0.10 kU/L; T007 - IgE Oak, White 2.08 kU/L; T008 IgE Elm, American <0.10 kU/L; T010 - IgE Walnut <0.10 kU/L; T011 - IgE Maple Leaf Sycamore <0.10 kU/L; T014 - IgE Cottonwood <0.10 kU/L; T015 - IgE Ash, White <0.10 kU/L; T070 - IgE White Mulberry <0.10 kU/L; W001 - IgE Ragweed, Short 2.71 kU/L; W006 - IgE Mugwort <0.10 kU/L; W014 IgE Pigweed, Common <0.10 kU/L; W018 IgE Sheep Sorrel <0.10 kU/L
== END 2023-12-30 13:50 | disposition home or self-care (01) ==
LOC: HO.LAB 13:49
PROVIDERS: PCP Internal Medicine; Visit Provider Internal Medicine Pulmonary Disease
DX: Z91.09 Other allergy status, other than to drugs and biological substances (principal)
CPT/HCPCS: 36415; 82785; 86003; 99212

== ENCOUNTER 2024-01-13 12:36 | Outpatient (AMB) | payer OTHER, SELFPAY ==
--- NOTE | 2024-01-13 12:57 | A.OFFVIS_ITS ---
Vital Signs 01/13/24 12:58 Height 5 ft 4 in Weight 202 lb BMI 34.7 Intake Visit Reasons: Follow Up 12/11 Left GSV RFA Intake Note: follow up Left GSV RFA 12/12/23. Pt states that her leg feels fine. Better than before the procedure. States she does have some Large VV on her Right LE Imaging Services Director Required: Yes Imaging Services Director Language: Rigging Loft Mechanic Name: Christen Mora [id number] Information Interpreted: clinical only Accompanied by: Self / Same As Patient Allergies seafood Allergy (Severe, Verified 01/13/24 13:04) Facial Swelling pollen extracts [POLLEN] Allergy (Mild, Verified 01/13/24 13:04) ITCHY EYES apple [APPLES] Allergy (Unknown, Verified 01/13/24 13:04) HIVES egg [EGGS] Allergy (Unknown, Verified 01/13/24 13:04) HIVES peanut [PEANUTS] Allergy (Unknown, Verified 01/13/24 13:04) HIVES garlic Adverse Reaction (Intermediate, Verified 01/13/24 13:04) Face swelling HPI HPI Follow Up 12/11 Left GSV RFA: Details: Very pleasant 63-year-old female presents for follow-up regarding left great saphenous vein ablation. She reports that the ablation went well. She does have some large varicosities throughout her thigh and calf which have been a source of pain and discomfort for her. She now presents for follow-up. [facility] Medical History Chronic back pain Asthma Surgical History No pertinent past surgical history Social History Housing: Apartment Alcohol intake: never Patient Tobacco Use Status: Never used Tobacco e-Cigarette/Vaping Use: Never Used Second Hand Smoke Exposure: No Current occupational status: disabled Cognitive needs: No Hearing needs: No Vision needs: No Review of Systems Const Reports as per HPI ENT Reports no additional complaints Card Denies chest pain, Denies chest pain at rest and Denies chest pain with activity Resp Denies chest congestion and Denies cough GI Reports no additional complaints Musc Details: pain over varicosities, aching of lower extremities, swelling, cramping, heaviness and tiredness, itching Denies abnormal gait Skin/Breast Reports pruritus and Denies wounds Neuro Reports no additional complaints and Denies abnormal gait Psych Denies no additional complaints Physical Exam Vital Signs: BMI result Body Mass Index 34.7 Const General: cooperative, healthy appearing and comfortable Orientation/consciousness: oriented to person, oriented to place and oriented to time Neck Carotids: no bruits Chest Chest palpation & inspection: normal inspection of the chest and normal palpation of entire chest wall Resp Effort & Inspection: normal respiratory effort and able to speak in complete sentences Cardio Rate: regular rate Heart sounds: S1 normal heart sound present and S2 normal heart sound present Peripheral pulses: Peripheral pulses 2+ throughout GI Inspection: Yes normal to inspection Skin Other: +2 edema, large rope-like varicosities greater than 4 mm left calf and thigh CEAP Classification C4 - skin color changes Ep - Etiology Primary As - superficial veins P - reflux General skin exam: dry skin Neuro General: oriented to person, oriented to place and oriented to time Extrem Right lower extremity: full ROM, normal capillary refill and edema Left lower extremity: full ROM, normal capillary refill and edema Psych Mental Status: mental status grossly normal Assessment & Plan Assessment & Plan (1) Varicose veins of left lower extremity with inflammation: Comment: 12/12/2023 - left GSV Radiofrequency ablation Code(s): I83.12 - Varicose veins of left lower extremity with inflammation Category: Medical Plan: This patient has varicose veins with inflammation. They continue to be a source of discomfort for the patient. The patient has tried conservative treatment with compression, leg elevation and exercise program for over 3 months time. They have been compliant with all treatment. This has provided minimal relief for the patient. I do not anticipate this course of treatment will alter the underlying etiology. The patient has been scheduled for lower extremity venous treatment inclusive of --- left leg microphlebectomy. Risks, benefits, and complications of this procedure has been discussed in detail with the patient including but not limited to bleeding, infection, and the development of a DVT. The patient has demonstrated a clear understanding and has consented. We will schedule the patient as soon as possible. Thank you for allowing us to participate in this patient's care. If there are any questions or concerns please do not hesitate to contact us. Coding Level of Care Code Est Pt Level 4 (66902) Diagnoses Varicose veins of left lower extremity with inflammation I83.12
[2024-01-13 12:58] VITALS: BMI 34.7
== END 2024-01-13 13:28 | disposition home or self-care (01) ==
PROVIDERS: PCP Internal Medicine; Visit Provider Surgery Vascular Surgery
DX: I83.12 Varicose veins of left lower extremity with inflammation (principal)
CPT/HCPCS: 99214

== ENCOUNTER → 2024-01-13 12:36 | Outpatient (BNVA) | payer OTHER, SELFPAY | PROVIDERS: PCP Internal Medicine; Visit Provider Surgery Vascular Surgery | DX: I83.12 Varicose veins of left lower extremity with inflammation (principal); Z98.890 Other specified postprocedural states | CPT/HCPCS: 99212 ==

== ENCOUNTER 2024-02-27 12:36 | Outpatient (AMB) | payer OTHER, SELFPAY ==
[2024-02-27 12:38] VITALS: BP 150/100; PULSE 99; O2SAT 99; BMI 33.6
--- NOTE | 2024-02-27 12:38 | MHC.PC.OV ---
Vital Signs 02/27/24 12:38 02/27/24 13:02 Height 5 ft 4 in Weight 195 lb 8 oz BMI 33.6 BP 150/100 H 132/84 Blood Pressure Location Lt brachial Lt brachial Position Sitting Pulse 99 Pulse Source Pulse Oximeter Pulse Oximetry (%) 99 Oxygen Delivery Method Room Air Intake Visit Reasons: Annual Exam Allergies seafood Allergy (Severe, Verified 02/27/24 12:38) Facial Swelling pollen extracts [POLLEN] Allergy (Mild, Verified 02/27/24 12:38) ITCHY EYES apple [APPLES] Allergy (Unknown, Verified 02/27/24 12:38) HIVES egg [EGGS] Allergy (Unknown, Verified 02/27/24 12:38) HIVES peanut [PEANUTS] Allergy (Unknown, Verified 02/27/24 12:38) HIVES garlic Adverse Reaction (Intermediate, Verified 02/27/24 12:38) Face swelling Medication List - Last Reconciled 02/27/24 by Nancy Corrales MD acetaminophen ER 650 mg PO Q12H PRN 90 days albuterol sulfate 90 mcg/actuation (Ventolin HFA) 2 puffs inhalation Q4-6H PRN fexofenadine 120 mg (2 x 60 mg) PO Q24H fexofenadine 180 mg PO Q24H 90 days fluticasone propionate 50 mcg/actuation 1 spray intranasal BID furosemide 40 mg PO BID 90 days gabapentin 300 mg PO BID ipratropium bromide 2 sprays intranasal TID ipratropium-albuterol 0.5 mg-3 mg(2.5 mg base)/3 mL 3 mL inhalation Q8H omeprazole 20 mg PO .daily Symbicort 160-4.5 mcg/actuation (budesonide-formoterol) 2 puffs inhalation BID NS Tobacco use date assessed: 02/27/24 Dental Screening Dental Screen Date: 02/27/24 Did you have a dental visit in the last 12 months?: Yes Did you have a dental problem in the last 6 months where you did not have access to dental care?: No Was dental information given to patient?: Patient has dentist HPI Annual Exam HPI Details 63-year-old female came in today for physical examination Patient has severe asthma she is established with grants specialist Pressure is elevated today, however her son is a INTEGRATED LOGISTICS OPERATIONS MANAGER and can monitor blood pressure at home and he will start doing so He will give me a call if her blood pressure stays above 140 We rechecked the blood pressure after finishing the physical exam and her blood pressure reading came back at 132 systolic Mammogram was June of last year OBGYN visit was end of last year Colonoscopy appointment is coming up in March She is having allergies and is requesting a script for antihistamine which I have sent for her Labs are needed to be done today. [facility] Medical History Chronic back pain Asthma Surgical History No pertinent past surgical history Social History Housing: Apartment Alcohol intake: never Patient Tobacco Use Status: Never used Tobacco e-Cigarette/Vaping Use: Never Used Second Hand Smoke Exposure: No Current occupational status: disabled Cognitive needs: No Hearing needs: No Vision needs: No Questionnaire PHQ-9 Over the last 2 weeks, how often have you been bothered by any of the following problems? 1. Little interest or pleasure in doing things: several days 2. Feeling down, depressed, or hopeless: not at all 3. Trouble falling or staying asleep, or sleeping too much: nearly every day 4. Feeling tired or having little energy: more than half the days 5. Poor appetite or overeating: more than half the days 6. Feeling bad about yourself - or that you are a failure or have let yourself or your family down: not at all 7. Trouble concentrating on things, such as reading the newspaper or watching television: several days 8. Moving or speaking so slowly that other people could have noticed. Or the opposite - being so fidgety or restless that you have been moving around a lot more than usual: not at all 9. Thoughts that you would be better off or of hurting yourself in some way: not at all Total score: 9 Depression Screening Interpretation: Positive Depression Screening Follow-up: Existing condition and In treatment Depression Screening Done: Yes 61977 - PHQ-9 Billing: Yes Source: Developed by Drs. Osvaldo Zazueta, Katey Farrell, Amari Schaeffer and colleagues, with an educational froylan from [employer]. Thrive Questionnaire Date Thrive assessed: 02/27/24 I am a: Patient What is your living situation today?: I have a steady place to live Within the past 12 months, did the food you bought not last and you didn't have the money to get more?: Never true Within the past 12 months, did you worry whether your food would run out before you got money to buy more?: Never true Do you have trouble paying for medicines?: No Do you have trouble getting transportation to medical appointments?: No Do you have trouble paying your heating and electricity bill?: Yes Do you have trouble taking care of your child, family member or friend?: No Do you have trouble with day-to-day activities such as bathing, preparing meals, shopping, managing finances, etc.?: No Are you currently unemployed and looking for a job?: No Are you interested in more education?: No Please select the resources that you would like help with: None Currently or been in a relationship where the following occur: no concerns reported THRIVE Score: 1 AUDIT C Alcohol Use Questionnaire (AUDIT-C) 1. How often do you have a drink containing alcohol?: Never 3. How often do you have six or more drinks on one occasion?: Never Total Score: 0 Score Reviewed/Action Taken: Yes RUDOLPH-7 AMB Questionnaire RUDOLPH-7 Date RUDOLPH - 7 assessed: 02/27/24 Feeling nervous, anxious, or on edge: 0 = Not at all Not being able to stop or control worryin = Several days Worrying too much about different things: 1 = Several days Trouble relaxin = Not at all Being so restless that it is hard to sit still: 1 = Several days Becoming easily annoyed or irritable: 0 = Not at all Feeling afraid as if something awful might happen: 0 = Not at all Total RUDOLPH-7 score (0-4 normal; 5-9 mild; 10-14 moderate; 15-21 severe): 3 Source: Developed by Drs. Osvaldo Zazueta, Katey Farrell, Amari Schaeffer and colleagues, with an educational froylan from [employer]. RUDOLPH-7 Assessment Billing RUDOLPH-7 Assessment Tool: RUDOLPH-7 Assessment 14179 Review of Systems Const Denies chills, Denies fever(s) and Denies headache(s) Eyes Denies blurry vision ENT Denies headache(s), Denies nasal discharge, Denies nasal obstruction, Denies odynophagia and Denies sinus pain Card Denies chest pain at rest and Denies chest pain with activity Resp Denies hemoptysis GI Denies diarrhea, Denies odynophagia, Denies vomiting and Denies hematemesis Reports as per HPI Musc Denies abnormal gait Skin/Breast Reports as per HPI Neuro Denies Neuro-related abnormal movements, Denies Abnormal speech present, Denies abnormal gait, Denies headache(s) and Denies Sensory deficit (Neuro) Psych Denies mood swings and Denies paranoia Endo Reports as per HPI Ever/Lymph Reports as per HPI Aller/Immun Reports as per HPI Physical exam (Primary Care) Vital Signs: Last Vital Signs Pulse 99 02/27/24 12:38 BP 132/84 02/27/24 13:02 Pulse Ox 99 02/27/24 12:38 Oxygen Delivery Method Room Air 02/27/24 12:38 BMI result Body Mass Index 33.6 Tobacco/Smoking Status: Tobacco use Status Tobacco use date assessed 02/27/24 02/27/24 12:39 Patient Tobacco Use Status Never used Tobacco 02/27/24 12:39 e-Cigarette/Vaping Use Never Used 02/27/24 12:39 PHQ-9: PHQ-9 Score PHQ-9: Total score 9 02/27/24 13:08 Depression Screening Interpretation: Positive Depression Screening Follow-up: Existing condition and In treatment Thrive Assessment: Date of Thrive Assessment Date Thrive assessed 02/27/24 02/27/24 13:02 Currently or been in a relationship where the following occur: no concerns reported Const General: cooperative, comfortable and no acute distress Orientation/consciousness: patient oriented x3 HENMT Head: Yes normocephalic and Yes atraumatic Eyes General: appearance normal, both eyes and all related structures Pupils: Equal, round and reactive pupils present EOM: EOMs intact bilaterally Neck Neck: Yes supple and No lymphadenopathy Thyroid: Thyroid normal Lymphatic: no lymphadenopathy noted Resp Other: Minimal wheezing with deep breaths able to talk in full sentences Effort & Inspection: normal respiratory effort and able to speak in complete sentences Cardio Heart sounds: S1 normal heart sound present and S2 normal heart sound present GI Palpation (GI): Soft to palpation and nontender Auscultation: normal bowel sounds General: Yes no CVA tenderness Back/Spine/Pelvis Back: no CVA tenderness Skin General skin exam: elasticity normal and turgor normal Neuro Other: Patient failed tandem walk General: patient oriented x3 and gait normal Cranial nerves: Yes Equal, round and reactive pupils present Speech: No Abnormal speech present Sensory Exam: No Sensory deficit (Neuro) Coordination: Romberg test negative Extrem General: Yes normal exam except as noted and No edema Assessment and Plan Assessment & Plan (1) Encounter for general adult medical examination with abnormal findings: Code(s): Z00.01 - Encounter for general adult medical examination with abnormal findings (2) Environmental allergies: Code(s): Z91.09 - Other allergy status, other than to drugs and biological substances (3) COPD (chronic obstructive pulmonary disease): Code(s): J44.9 - Chronic obstructive pulmonary disease, unspecified Qualifiers: COPD type: emphysema Emphysema type: panlobular Qualified Code(s): J43.1 - Panlobular emphysema (4) Moderate persistent asthma: Code(s): J45.40 - Moderate persistent asthma, uncomplicated Qualifiers: Asthma complication type: uncomplicated Qualified Code(s): J45.40 - Moderate persistent asthma, uncomplicated (5) Chronic GERD: Code(s): K21.9 - Gastro-esophageal reflux disease without esophagitis (6) Obesity due to excess calories: Code(s): E66.09 - Other obesity due to excess calories Qualifiers: Body mass index: BMI 34.0-34.9 Obesity classification: adult class 1 (BMI 30 - 34.9) Serious obesity comorbidity presence: with serious comorbidity Qualified Code(s): E66.09 - Other obesity due to excess calories; Z68.34 - Body mass index [BMI] 34.0-34.9, adult Plan 63-year-old female came in today for physical examination Patient has severe asthma she is established with grants specialist Pressure is elevated today, however her son is a INTEGRATED LOGISTICS OPERATIONS MANAGER and can monitor blood pressure at home and he will start doing so He will give me a call if her blood pressure stays above 140 We rechecked the blood pressure after finishing the physical exam and her blood pressure reading came back at 132 systolic Mammogram was June of last year OBGYN visit was end of last year Colonoscopy appointment is coming up in March She is having allergies and is requesting a script for antihistamine which I have sent for her Labs are needed to be done today. Orders: Orders TSH reflex Free T4 Today E66.09 - Other obesity due to excess calories, J43.1 - Panlobular emphysema, J45.40 - Moderate persistent asthma, uncomplicated, K21.9 - Gastro-esophageal reflux disease without esophagitis, Z00.01 - Encounter for general adult medical examination with abnormal findings, Z68.34 - Body mass index [BMI] 34.0-34.9, adult, Z91.09 - Other allergy status, other than to drugs and biological substances Vitamin D 25-OH (D2 and D3) Today E66.09 - Other obesity due to excess calories, J43.1 - Panlobular emphysema, J45.40 - Moderate persistent asthma, uncomplicated, K21.9 - Gastro-esophageal reflux disease without esophagitis, Z00.01 - Encounter for general adult medical examination with abnormal findings, Z68.34 - Body mass index [BMI] 34.0-34.9, adult, Z91.09 - Other allergy status, other than to drugs and biological substances Complete Blood Count Auto Diff Today E66.09 - Other obesity due to excess calories, J43.1 - Panlobular emphysema, J45.40 - Moderate persistent asthma, uncomplicated, K21.9 - Gastro-esophageal reflux disease without esophagitis, Z00.01 - Encounter for general adult medical examination with abnormal findings, Z68.34 - Body mass index [BMI] 34.0-34.9, adult, Z91.09 - Other allergy status, other than to drugs and biological substances Comprehensive Met. Panel Today E66.09 - Other obesity due to excess calories, J43.1 - Panlobular emphysema, J45.40 - Moderate persistent asthma, uncomplicated, K21.9 - Gastro-esophageal reflux disease without esophagitis, Z00.01 - Encounter for general adult medical examination with abnormal findings, Z68.34 - Body mass index [BMI] 34.0-34.9, adult, Z91.09 - Other allergy status, other than to drugs and biological substances LDL Cholesterol Direct Today E66.09 - Other obesity due to excess calories, J43.1 - Panlobular emphysema, J45.40 - Moderate persistent asthma, uncomplicated, K21.9 - Gastro-esophageal reflux disease without esophagitis, Z00.01 - Encounter for general adult medical examination with abnormal findings, Z68.34 - Body mass index [BMI] 34.0-34.9, adult, Z91.09 - Other allergy status, other than to drugs and biological substances Medications: New fexofenadine 120 mg (2 x 60 mg) PO Q24H 90 tabs 1RF Coding Level of Care Code Est Pt Level 3 (05241) Est Pt Prev Care 40-64y(08688) Diagnoses Encounter for general adult medical examination with abnormal findings Z00.01 Environmental allergies Z91.09 Panlobular emphysema J43.1 COPD type: emphysema Emphysema type: panlobular Moderate persistent asthma without complication J45.40 Asthma complication type: uncomplicated Chronic GERD K21.9 Class 1 obesity due to excess calories with serious comorbidity and body mass index (BMI) of 34.0 to 34.9 in adult E66.09; Z68.34 Body mass index: BMI 34.0-34.9 Obesity classification: adult class 1 (BMI 30 - 34.9) Serious obesity comorbidity presence: with serious comorbidity Additional Codes RUDOLPH-7 Assessment Billing - RUDOLPH-7 Assessment Tool: RUDOLPH-7 Assessment 62509 ([id number])
[2024-02-27 13:02] VITALS: BP 132/84
== END 2024-02-27 16:29 | disposition home or self-care (01) ==
PROVIDERS: PCP Internal Medicine; Visit Provider Internal Medicine
DX: Z00.01 Encounter for general adult medical examination with abnormal findings (principal); J43.1 Panlobular emphysema; Z91.09 Other allergy status, other than to drugs and biological substances; E66.09 Other obesity due to excess calories; Z68.34 Body mass index [BMI] 34.0-34.9, adult; J45.40 Moderate persistent asthma, uncomplicated; K21.9 Gastro-esophageal reflux disease without esophagitis
CPT/HCPCS: 99213; 99396

== ENCOUNTER 2024-02-27 13:09 | Outpatient (REF) | payer OTHER, SELFPAY ==
[2024-02-27 16:32] LABS: MANUAL DIFF FLAG NO
[2024-02-27 16:42] LABS: Basophils Absolute Auto 0.1 X10*3/uL (0.0-0.2); Basophils Percent Auto 0.9 % (0-2); Eosinophils Absolute Auto 0.4 X10*3/uL (0.0-0.4); Eosinophils Percent Auto 3.6 % (0-4); Hematocrit 40.8 % (37.0-47.0); Hemoglobin 13.3 g/dl (12.0-16.0); Imm Gran Abs Auto 0.17 X10*3/uL (0.00-0.03); Imm Gran Pct Auto 1.6 % (0.0-0.4); Lymphocytes Absolute Auto 3.1 X10*3/uL (1.2-4.9); Lymphocytes Percent Auto 29.3 % (20-40); Mean Corpuscular HGB Conc 32.6 g/dl (31.0-35.0); Mean Corpuscular Volume 91.9 fL (80.0-98.0); Mean Platelet Volume 12.3 fL (9.4-12.3); Monocytes Percent Auto 9.3 % (2-11); Neutrophils Absolute Auto 5.9 x10*3/uL (2.0-8.3); Neutrophils Percent Auto 55.3 % (45-73); Platelet Count 233 X10*3/uL (160-400); Red Blood Count 4.44 X10*6/uL (4.20-5.50); Red Cell Distribution Width 12.7 % (11.0-16.0); White Blood Count 10.6 X10*3/uL (4.8-10.8)
[2024-02-27 20:04] LABS: Alanine Aminotransferase 18 U/L (0-31); Albumin Level 4.2 g/dL (3.5-5.0); Alkaline Phosphatase 85 U/L (39-117); Anion Gap 12 (12-20); Aspartate Amino Transferase 18 U/L (5-31); Bilirubin Total 0.2 mg/dL (0.0-1.0); Blood Urea Nitrogen 11 mg/dL (9-16); Calcium 9.5 mg/dL (8.4-10.2); Carbon Dioxide 26 mmol/L (22-29); Chloride 108 mmol/L (96-108); Estimated Glomerular Filt Rate > 60; Glucose Random 82 mg/dL (60-115); Potassium 4.3 mmol/L (3.3-5.1); Sodium 142 mmol/L (135-145); Total Protein 7.8 g/dL (6.5-8.0)
[2024-02-27 20:17] LABS: TSH reflex Free T4 0.96 uIU/mL (0.32-4.0)
[2024-02-28 10:03] LABS: LDL Cholesterol Direct 114 mg/dL (<100)
[2024-03-03 12:18] LABS: Vitamin D 25-OH, D2 <4 ng/mL; Vitamin D 25-OH, D3 9 ng/mL; Vitamin D 25-OH, Total 9 ng/mL (30-100)
== END 2024-02-27 13:10 | disposition home or self-care (01) ==
LOC: HO.HMGCLDS 13:09
PROVIDERS: PCP Internal Medicine; Visit Provider Internal Medicine
DX: Z00.01 Encounter for general adult medical examination with abnormal findings (principal); J45.40 Moderate persistent asthma, uncomplicated; J43.1 Panlobular emphysema; Z91.09 Other allergy status, other than to drugs and biological substances; K21.9 Gastro-esophageal reflux disease without esophagitis; E66.09 Other obesity due to excess calories; Z68.34 Body mass index [BMI] 34.0-34.9, adult
CPT/HCPCS: 36415; 80053; 82306; 83721; 84443; 85025

== ENCOUNTER 2024-03-05 09:28 | Outpatient (AMB) | payer OTHER, SELFPAY ==
[2024-03-05 09:53] VITALS: BMI 33.5
--- NOTE | 2024-03-05 09:53 | MHC.OFFVIS ---
Vital Signs 03/05/24 09:53 Height 5 ft 4 in Weight 195 lb BMI 33.5 Intake Visit Reasons: Left Leg Micro Accompanied by: Self / Same As Patient Allergies seafood Allergy (Severe, Verified 03/05/24 09:54) Facial Swelling pollen extracts [POLLEN] Allergy (Mild, Verified 03/05/24 09:54) ITCHY EYES apple [APPLES] Allergy (Unknown, Verified 03/05/24 09:54) HIVES egg [EGGS] Allergy (Unknown, Verified 03/05/24 09:54) HIVES peanut [PEANUTS] Allergy (Unknown, Verified 03/05/24 09:54) HIVES garlic Adverse Reaction (Intermediate, Verified 03/05/24 09:54) Face swelling PFSH Medical History Chronic back pain Asthma Surgical History No pertinent past surgical history Social History Housing: Apartment Alcohol intake: never Patient Tobacco Use Status: Never used Tobacco e-Cigarette/Vaping Use: Never Used Second Hand Smoke Exposure: No Current occupational status: disabled Cognitive needs: No Hearing needs: No Vision needs: No Physical Exam Vital Signs: BMI result Body Mass Index 33.5 Office Procedures Vascular Office Procedure Details Details: Diagnosis: Left Leg varicose veins with inflammation Procedure: Left leg Microphlebectomy Anesthesia: Local Infiltration 10 cc, Tumescent: 0 cc. Varicose veins were marked in the standing position on the left leg and the patient was then placed in the supine position. The left lower extremity was prepared and draped to allow knee flexion in the sterile field. The patient had large superficial varicose veins with significant symptoms of pain. It was therefore determined to perform microphlebectomies of the clusters of varicose veins. The patient had bulging varicose veins which were previously marked in the standing position. A small stab incision was made longitudinally directly overlying the varicose vein in the calf and the varicose vein was grasped with a hemostat aided by a vein hook. It was then dissected as far proximally and distally as possible and avulsed. A total of 11 stab incisions were made and the procedure of stab phlebectomies was repeated 11 times. Hemostasis was checked and stab incision sites were closed with steri-strips and sterile dressing was given with gauze and krilex wrap followed by an néstor bandage. There were no complications and blood loss was minimal. Post-Op instructions were given and a follow-up appointment was recommended. [id number] - Phleb Veins, Extrem - up to 20 All charges added?: Procedure code (CPT) selection complete Assessment & Plan Assessment & Plan (1) Varicose veins of left lower extremity with inflammation: Comment: 12/12/2023 - left GSV Radiofrequency ablation 03/05/2024 - left leg microphlebectomy Code(s): I83.12 - Varicose veins of left lower extremity with inflammation Category: Medical Plan: See op note Coding Level of Care Code Procedure Only Diagnoses Varicose veins of left lower extremity with inflammation I83.12 CPT Codes Details - Vascular 5: 78722 - Phleb Veins, Extrem - up to 20 ([id number])
== END 2024-03-05 11:15 | disposition home or self-care (01) ==
PROVIDERS: PCP Internal Medicine; Visit Provider Surgery Vascular Surgery
DX: I83.12 Varicose veins of left lower extremity with inflammation (principal)
CPT/HCPCS: 37765

== ENCOUNTER → 2024-03-05 09:28 | Outpatient (BNVA) | payer OTHER, SELFPAY | PROVIDERS: PCP Internal Medicine; Visit Provider Surgery Vascular Surgery | DX: I83.12 Varicose veins of left lower extremity with inflammation (principal) | CPT/HCPCS: 37765 ==

== ENCOUNTER 2024-03-17 14:03 | Outpatient (AMB) | payer OTHER, SELFPAY ==
[2024-03-17 14:16] VITALS: BP 142/94; PULSE 98; O2SAT 93; BMI 34.1
--- NOTE | 2024-03-17 14:16 | A.OFFVIS_ITS ---
Vital Signs 03/17/24 14:16 Height 5 ft 4 in Weight 198 lb 6.656 oz BMI 34.1 BP 142/94 H Blood Pressure Location Rt brachial Position Sitting Pulse 98 Pulse Source Doppler Pulse Oximetry (%) 93 Oxygen Delivery Method Room Air Intake Visit Reasons: COPD Allergies seafood Allergy (Severe, Verified 03/05/24 09:54) Facial Swelling pollen extracts [POLLEN] Allergy (Mild, Verified 03/05/24 09:54) ITCHY EYES apple [APPLES] Allergy (Unknown, Verified 03/05/24 09:54) HIVES egg [EGGS] Allergy (Unknown, Verified 03/05/24 09:54) HIVES peanut [PEANUTS] Allergy (Unknown, Verified 03/05/24 09:54) HIVES garlic Adverse Reaction (Intermediate, Verified 03/05/24 09:54) Face swelling HPI HPI COPD: Details: 63-year-old lady followed for severe persistent asthma, DOLLY, and dyspnea on exertion. She has been using Symbicort 160, Singulair, albuterol MDI and nebs with suboptimal control of her underlying symptoms. She continues to use Lasix 40 mg twice a day.? She is following with extruding press operator for underlying diastolic dysfunction.? Patient is using her CPAP with good control of her underlying DOLLY.? After the last office visit patient completed her immunologic workup showing underlying allergic component to her symptoms. She is also complaining of mild exacerbation together with pharyngitis. [facility] Medical History Chronic back pain Asthma Surgical History No pertinent past surgical history Social History Housing: Apartment Alcohol intake: never Patient Tobacco Use Status: Never used Tobacco e-Cigarette/Vaping Use: Never Used Second Hand Smoke Exposure: No Current occupational status: disabled Cognitive needs: No Hearing needs: No Vision needs: No Review of Systems Const Denies daytime sleepiness, Denies excessive sweating, Denies fatigue, Denies fever(s), Denies lethargy, Denies malaise, Denies night sweats, Denies snoring and Denies weight loss Eyes Denies blurry vision and Denies itchy eyes ENT Denies nasal congestion, Denies post nasal drip, Denies sinus pain, Denies sinus pressure, Reports sore throat and Denies other ( Thrush) Card Denies chest pain, Denies pedal edema, Denies dyspnea, Denies orthopnea and Denies paroxysmal nocturnal dyspnea Resp Denies cough, Denies hemoptysis, Denies excessive phlegm production, Denies dyspnea, Denies snoring and Reports wheezing GI Denies abdominal pain and Denies heartburn Musc Denies myalgias, Denies arthralgias and Denies joint swelling Skin/Breast Denies rash Neuro Denies memory loss and Denies seizure-like activity Psych Denies abnormal sleep pattern, Denies anxiety and Denies memory loss Endo Denies excessive sweating, Denies fatigue and Denies heat intolerance Ever/Lymph Denies easy bruising Aller/Immun Denies itchy eyes, Denies seasonal rhinorrhea and Reports wheezing Physical Exam Vital Signs: Last Vital Signs Pulse 98 03/17/24 14:16 BP 142/94 H 03/17/24 14:16 Pulse Ox 93 03/17/24 14:16 Oxygen Delivery Method Room Air 03/17/24 14:16 BMI result Body Mass Index 34.1 Const General: no acute distress and alert Nutritional Appearance: obese Orientation/consciousness: Other orientation findings ( oriented) HEENT Head: Yes atraumatic Eyes General: appearance normal, both eyes and all related structures Sclerae: sclerae normal EOM: EOMs intact bilaterally Neck Neck: Yes supple Lymphatic: no lymphadenopathy noted Resp Effort & Inspection: normal respiratory effort and no use of accessory muscles Auscultation: clear to auscultation bilaterally Cardio Rate: regular rate Rhythm: regular rhythm Heart sounds: no gallops, no murmurs and no rubs Skin General skin exam: other ( warm) Extrem General: No clubbing, No cyanosis and No edema Assessment & Plan Assessment & Plan (1) Severe persistent asthma: Code(s): J45.50 - Severe persistent asthma, uncomplicated Category: Medical Plan: Approved for Xolair but has not started it. Start Xolair. Continue Symbicort, duo nebs, and albuterol MDI. Will treat acute exacerbation with a course of Augmentin and prednisone. (2) Environmental allergies: Code(s): Z91.09 - Other allergy status, other than to drugs and biological substances Category: Medical Plan: Expect to improve on Xolair. Continue Sylwia. (3) DOLLY on CPAP: Code(s): G47.33 - Obstructive sleep apnea (adult) (pediatric); Z99.89 - Dependence on other enabling machines and devices Category: Medical Plan: Reasonable control on current CPAP therapy. Continue CPAP therapy. Medications: New prednisone 40 mg (2 x 20 mg) PO DAILY 10 tabs 0RF amoxicillin-pot clavulanate 875-125 mg 1 tab PO BID 14 tabs 0RF Coding Level of Care Code Est Pt Level 4 (85282) Diagnoses Severe persistent asthma J45.50 Environmental allergies Z91.09 DOLLY on CPAP G47.33; Z99.89
== END 2024-03-17 14:42 | disposition home or self-care (01) ==
PROVIDERS: PCP Internal Medicine; Visit Provider Internal Medicine Pulmonary Disease
DX: J45.50 Severe persistent asthma, uncomplicated (principal); Z91.09 Other allergy status, other than to drugs and biological substances; G47.33 Obstructive sleep apnea (adult) (pediatric); Z99.89 Dependence on other enabling machines and devices
CPT/HCPCS: 99214

== ENCOUNTER → 2024-03-17 14:03 | Outpatient (BNVA) | payer OTHER, SELFPAY | PROVIDERS: PCP Internal Medicine; Visit Provider Internal Medicine Pulmonary Disease | DX: J45.50 Severe persistent asthma, uncomplicated (principal); G47.33 Obstructive sleep apnea (adult) (pediatric); Z79.899 Other long term (current) drug therapy; Z91.09 Other allergy status, other than to drugs and biological substances; Z99.89 Dependence on other enabling machines and devices | CPT/HCPCS: 99212 ==

== ENCOUNTER 2024-03-25 12:59 | Emergency (ER) | payer OTHER, SELFPAY ==
[2024-03-25] VITALS (8 sets, daily range): BP systolic 133–195; BP diastolic 73–110; PULSE 55–112; RESP 16–28; TEMP 36.9–37.1; O2SAT 94–99; BMI 34.0
--- NOTE | ~2024-03-25 | CT_ITS ---
EXAMINATION: CT ABDOMEN AND PELVIS WITH CONTRAST CLINICAL INFORMATION: Left lower quadrant tenderness COMPARISON: CTA chest 10/22/2016 TECHNIQUE: Multidetector volumetric images were obtained from the superior aspect of the liver through the pubic symphysis following administration 85 mL of Omnipaque 350 intravenous contrast. Sagittal and coronal reformatted images were obtained on the technologist's workstation. Oral contrast: No This CT examination was performed using dose optimization techniques as appropriate, variously including the following: *Automated exposure control *Adjustment of mA and/or kV according to patient size (this includes techniques or standardized protocols for targeted exams where dose is matched to indication/reason for exam; i.e. extremities or head) *Use of iterative reconstruction technique DLP: 665 mGy-cm FINDINGS: LUNG BASES: The visualized lung bases are unremarkable. Marked motion artifact degrades detail. LIVER, GALLBLADDER, AND BILIARY TREE: The liver is normal in size, shape, and attenuation. No focal hepatic lesion or biliary ductal dilatation is present. The gallbladder is unremarkable with no evidence of radiopaque gallstones, gallbladder wall thickening, or obvious pericholecystic inflammatory changes. PANCREAS: Unremarkable. SPLEEN: Unremarkable. ADRENAL GLANDS: Unremarkable. KIDNEYS AND URETERS: The kidneys are normal in size, shape, and attenuation. No hydronephrosis, hydroureter, or calculi seen. No perinephric stranding. BLADDER: Unremarkable. GASTROINTESTINAL TRACT: A small hiatal hernia is present. The small and large bowel are unremarkable. The appendix is unremarkable. ABDOMINAL WALL: No significant hernia is appreciated. LYMPH NODES: No retroperitoneal lymphadenopathy VASCULAR: Unremarkable. PELVIC VISCERA: The uterus and adnexa are unremarkable. OSSEOUS STRUCTURES: Some mild degenerative changes are present in the spine most marked from L4 through S1. CT/CT abdomen pelvis w IV con IMPRESSION: A cause for the patient's left lower quadrant pain has not been found. Incidental note made of a small hiatal hernia and mild degenerative changes in the spine. Fleischner guidelines were followed.
--- NOTE | ~2024-03-25 | XR_ITS ---
EXAMINATION: XR CHEST CLINICAL INFORMATION: Shortness of breath COMPARISON: 04/04/2021 TECHNIQUE: Frontal view of the chest was obtained. FINDINGS: Lungs are well expanded. There appear to be old mildly prominent reticular opacities and/or thickening of bronchial renee without appreciable change compared to 03/27/2021. Chronic micronodular opacities within the lungs are suspected. No focal consolidation or pleural effusion. Cardiac silhouette is normal in size. The visualized bones are intact. XR/XR chest 1V IMPRESSION: Although lungs are abnormal, the current imaging abnormalities are similar compared to 04/04/2021. There might be chronic or recurrent bronchitis/bronchiolitis. No focal consolidation.
--- NOTE | 2024-03-25 13:07 | ED_ITS ---
HPI - Asthma General Chief Complaint: General Medical Stated Complaint: asthma , diaherra Time Seen by Provider: 03/25/24 16:21 Source: patient Mode of arrival: ambulatory Limitations: no limitations History of Present Illness ED Provider: Fannie PULLIAM Narrative: Patient is a 64-year-old female with history of severe persistent asthma, DOLLY on CPAP, dyspnea on exertion, diastolic dysfunction presenting to emergency department with complaint of abdominal pain, nausea, vomiting and diarrhea as well as fever and sore throat for the past 4 days. States she vomited 3 times this morning. Denies any hematemesis, melena, hematochezia. Denies any urinary urgency, dysuria or frequency. Complains of feeling short of breath but states she feels that this is at her baseline. Denies chest pain currently. Denies any family members sick with similar symptoms. Denies prior abdominal surgeries. Denies history of hypertension and does not take medications for this. MD complaint: shortness of breath and other (abdominal pain, nausea, vomiting, diarrhea) Onset (ago): day(s) Associated symptoms: dry cough and fever Asthma History: history of frequent attacks and followed by specialist Treatments Prior to Arrival: inhaled bronchodilator, inhaled steroid and CPAP Related Data Home Medications ?Medication ?Instructions ?Recorded ?Confirmed gabapentin 300 mg capsule 300 mg PO BID 01/29/23 02/27/24 Previous Rx's ?Medication ?Instructions ?Recorded fluticasone propionate 50 1 spray intranasal BID #48 mL 04/04/21 mcg/actuation nasal spray,suspension ipratropium 0.5 mg-albuterol 3 mg 3 ml inhalation Q8H #360 mL 03/07/23 (2.5 mg base)/3 mL nebulization soln ipratropium bromide 42 mcg (0.06 2 spray intranasal TID #15 mL 03/17/23 %) nasal spray Symbicort 160 mcg-4.5 2 puff inhalation BID #10.2 ea 11/14/23 mcg/actuation HFA aerosol inhaler (budesonide-formoterol) acetaminophen 650 mg 650 mg PO Q12H PRN pain 90 days 11/20/23 tablet,extended release #180 tabs omeprazole 20 mg capsule,delayed 20 mg PO .daily #90 caps 12/08/23 release furosemide 40 mg tablet 40 mg PO BID 90 days #180 tabs 12/11/23 albuterol sulfate 90 mcg/actuation 2 puff inhalation Q4-6H PRN for 01/28/24 aerosol inhaler (Ventolin HFA) wheezing #18 ea fexofenadine 60 mg tablet 120 mg (2 x 60 mg) PO Q24H #90 tabs 02/27/24 cholecalciferol (vitamin D3) 25 25 mcg PO DAILY 90 days #90 caps 03/03/24 mcg (1,000 unit) capsule fexofenadine 180 mg tablet 180 mg PO Q24H 90 days #90 tabs 03/03/24 amoxicillin 875 mg-potassium 1 tab PO BID #14 tabs 03/17/24 clavulanate 125 mg tablet prednisone 20 mg tablet 40 mg (2 x 20 mg) PO DAILY #10 tabs 03/17/24 ondansetron 4 mg disintegrating 4 mg PO Q8H PRN nausea and 03/25/24 tablet vomiting #10 tabs Allergies Allergy/AdvReac Type Severity Reaction Status Date / Time seafood Allergy Severe Facial Verified 03/25/24 13:16 Swelling pollen extracts [POLLEN] Allergy Mild ITCHY EYES Verified 03/25/24 13:16 apple [APPLES] Allergy Unknown HIVES Verified 03/25/24 13:16 egg [EGGS] Allergy Unknown HIVES Verified 03/25/24 13:16 peanut [PEANUTS] Allergy Unknown HIVES Verified 03/25/24 13:16 garlic AdvReac Intermediate Face Verified 03/25/24 13:16 swelling Review of Systems 2 Review of Systems: As per HPI. Yes all other systems are reviewed and are negative Constitutional: Constitutional: Reports as per HPI PMFSH Past Medical History Medical History Chronic back pain Asthma Surgical History No pertinent past surgical history Social History Social History Housing: Apartment Alcohol intake: never Patient Tobacco Use Status: Never used Tobacco Smoked in Last 30 Days: No e-Cigarette/Vaping Use: Never Used Second Hand Smoke Exposure: No Use of substances other than those prescribed or required for medical reasons: No Advance Directives: Yes Advance Directives Information Provided: Yes Advance Directives on File: No Patient : No Current occupational status: disabled Cognitive needs: No Hearing needs: No Vision needs: No Physical Exam 2 Vital Signs: Vital Signs: Last Vital Signs Temp 98.8 F 03/25/24 18:32 Pulse 107 H 03/25/24 18:32 Resp 16 03/25/24 18:32 BP 133/73 03/25/24 18:32 Pulse Ox 98 03/25/24 18:32 O2 Del Method Room Air 03/25/24 18:32 BMI result Body Mass Index 34.0 Vital signs have been reviewed and appear to be correct. Blood pressure elevated. Heart rate normal. Respiratory rate normal. Temperature normal. Oxygen saturation normal. Const: General: cooperative, healthy appearing and no acute distress O rientation/consciousness: oriented to person, oriented to place, oriented to time and patient oriented x3 Limitations: no limitations HEENT: Head: Yes normocephalic and Yes atraumatic Ears: external ears normal General nose exam: Normal external nose present Face and sinus: Yes face symmetric Mouth: oropharynx normal and moist mucous membranes T hroat: Yes uvula midline Eyes: Pupils: Equal, round and reactive pupils present Neck: Neck: Yes normal visual inspection and Yes supple Resp: Effort & Inspection: normal respiratory effort and able to speak in complete sentences Auscultation: wheezes expiratory wheezes, inspiratory wheezes and throughout Cardio: Rate: regular rate Rhythm: regular rhythm Heart sounds: S1 normal heart sound present and S2 normal heart sound present GI: Inspection: Yes normal to inspection Palpation (GI): Soft to palpation, Tenderness to palpation present (GI) in the LLQ, no guarding and No Rebound tenderness present Auscultation: normoactive bowel sounds : General: Yes no CVA tenderness Back/Spine/Pelvis: Back: no CVA tenderness Skin: General skin exam: elasticity normal and turgor normal Neuro: General: oriented to person, oriented to place, oriented to time, patient oriented x3, moves all extremities, no focal motor deficits and CN's II- XI intact bilaterally Cranial nerves: Yes Equal, round and reactive pupils present Cognition (Neuro): normal cognition Extrem: General: Yes full ROM, Yes no pedal edema and Yes no calf tenderness Psych: Mental Status: mental status grossly normal Affect: normal affect Thought process: Normal thought process present Course Course Course Narrative: This is a Rapid Medical Exam performed in triage by Barbara Peguero PA-C. Full HPI, ROS and PE to be performed by primary ED provider. 64 year-old F w/ PMHx asthma, COPD, depression, GERD, DOLLY on CPAP, obesity, presenting to the ED c/o asthma exacerbation w/cough, SOB, lung pain , abdominal pain, diarrhea & sore throat x few days. +fever PE: coughing, lungs w/diffuse wheeze & rhonchi Plan: EKG, labs, CXR, viral testing, rapid strep, ED bronch protocol ordered Medications Administered Discontinued Medications Generic Name Dose Route Start Last Admin Trade Name Freq PRN Reason Stop Dose Admin Albuterol Sulfate 5 mg/ 0 mg 03/25/24 14:46 03/25/24 14:50 Albuterol/Ipratropium 3 ml INHALE 03/25/24 14:47 7.5 each ONCE ONE Administration Albuterol Sulfate 5 mg/ 0 mg 03/25/24 18:10 03/25/24 18:13 Albuterol/Ipratropium 3 ml INHALE 03/25/24 18:11 7.5 each ONCE ONE Administration Diphenhydramine HCl 25 mg 03/25/24 19:19 03/25/24 20:08 Diphenhydramine Hcl 50 Mg/Ml Vial IVPUSH 03/25/24 19:20 25 mg ONCE ONE Administration Sodium Chloride 1,000 mls @ 999 mls/hr 03/25/24 19:30 03/25/24 20:09 Ns IV 03/25/24 20:30 999 mls/hr .Q1H1M JOSE A Administration Iohexol 100 ml 03/25/24 20:04 03/25/24 20:04 Iohexol 350 Mg/Ml 100 Ml Infus..Btl IV 03/25/24 20:05 85 ml ONCE ONE Administration Medical Decision Making Medical Decision Making MDM Narrative: Patient is a 64-year-old female with history of severe persistent asthma, DOLLY on CPAP, dyspnea on exertion, diastolic dysfunction presenting to emergency department with complaint of abdominal pain, nausea, vomiting and diarrhea as well as fever and sore throat for the past 4 days. On exam patient is awake, A+Ox3, BP elevated, slightly tachycardic, VS otherwise WNL, afebrile, normal neurological exam without focal deficits, physical exam findings as above. Given reported symptoms and physical exam findings, initial differential includes viral illness, gastroenteritis, strep pharyngitis, covid, flu, diverticulitis, bronchitis, pneumonia. Unlikely ACS. Do not suspect sepsis at 16:55. Labs notable for mild leukocytosis, no anemia, no evidence of LIZ, normal transaminases, negative troponin. Viral and strep swabs negative. EKG shows sinus tachycardia at 104bpm. X-ray notable for old opacities similar to prior exam from 2020, no focal consolidation. CT abdomen/pelvis notable for small hiatal hernia, no cause for LLQ tenderness. My interpretation is in agreement with the radiologist's interpretation. Results discussed with patient and all questions answered. Feel patient is stable for discharge home and patient and family agreeable with this. States she feels better after IV fluids. Advised Tylenol/ibuprofen for fever, will send prescription for zofran for nausea. Patient unable to provide stool sample while in the ED. Instructed patient to follow up with PCP. Return precautions discussed at bedside. Patient verbalized understanding of and agreement with plan. Differential Diagnosis Differential Diagnoses: The differential diagnosis associated with the presentation includes Admission/Observation Consideration of admission/observation: Escalation of care including admission/observation considered Patient would have been admitted to the hospital had their work up had any findings where hospital admission was appropriate and their clinical presentation warranted hospital admission. Lab Data [facility] Lab Attestation statement: I reviewed the patient's lab results. As per [facility] 03/25/24 13:55 03/25/24 13:55 Labs: Lab Results 03/25/24 Range/Units 13:55 WBC 13.9 H (4.8-10.8) X10*3/uL RBC 4.47 (4.20-5.50) X10*6/uL Hgb 13.7 (12.0-16.0) g/dl Hct 40.2 (37.0-47.0) % MCV 89.9 (80.0-98.0) fL MCH 30.6 (27.0-33.0) pg MCHC 34.1 (31.0-35.0) g/dl RDW 13.1 (11.0-16.0) % Plt Count 196 (160-400) X10*3/uL MPV 11.2 (9.4-12.3) fL Immature Gran % (Auto) 1.4 H (0.0-0.4) % Neut % (Auto) 59.7 (45-73) % Lymph % (Auto) 23.1 (20-40) % Weston % (Auto) 8.3 (2-11) % Eos % (Auto) 7.1 H (0-4) % Baso % (Auto) 0.4 (0-2) % Lymph # (Auto) 3.2 (1.2-4.9) X10*3/uL Weston # (Auto) 1.2 (0.1-1.2) X10*3/uL Eos # (Auto) 1.0 H (0.0-0.4) X10*3/uL Baso # (Auto) 0.1 (0.0-0.2) X10*3/uL Abs Immat Gran (auto) 0.20 H (0.00-0.03) X10*3/uL Absolute Neuts (auto) 8.3 (2.0-8.3) x10*3/uL Absolute Nucleated RBC 0.000 (0.0-0.012) X10*3/uL Nucleated RBC % (auto) 0.0 (0.0-0.2) /100WBC Sodium 142 (135-145) mmol/L Potassium 3.6 (3.3-5.1) mmol/L Chloride 106 (96-108) mmol/L Carbon Dioxide 25 (22-29) mmol/L Anion Gap 15 (12-20) BUN 8 L (9-16) mg/dL Creatinine 0.66 (0.5-1.4) mg/dL Estim Creat Clear Calc 93.4 Estimated GFR > 60 Random Glucose 83 (60-115) mg/dL Calcium 9.4 (8.4-10.2) mg/dL Magnesium 1.9 (1.6-2.6) mg/dL Total Bilirubin 0.4 (0.0-1.0) mg/dL Direct Bilirubin 0.2 (0.0-0.5) mg/dL AST 18 (5-31) U/L ALT 23 (0-31) U/L Alkaline Phosphatase 79 (39-117) U/L Troponin I High Sens < 2.7 (<3.5-17.0) ng/L B-Natriuretic Peptide < 10 (<100) pg/mL Total Protein 7.4 (6.5-8.0) g/dL Albumin 4.1 (3.5-5.0) g/dL Influenza Type A (PCR) NEGATIVE (Negative) Influenza Type B (PCR) NEGATIVE (Negative) RSV RNA Qual (PCR) NEGATIVE (Negative) SARS-CoV-2 RNA (RT-PCR) NEGATIVE (Negative) S. pyogenes GrpA FLOR Negative (Negative) Independent Interpretation I performed an independent interpretation of an: EKG (sinus tachycardia, rate 104 bpm, normal [place] interval, no evidence of STEMI), Plain X-Ray and CT Scan Interpretation: X-ray notable for old opacities similar to prior exam from 2020, no focal consolidation. CT abdomen/pelvis notable for small hiatal hernia, no cause for LLQ tenderness. Radiology Impression Discussion of test interpretation with radiology: I have reviewed the radiologist's reading. Radiologist Impression: CT/CT abdomen pelvis w IV con IMPRESSION: A cause for the patient's left lower quadrant pain has not been found. Incidental note made of a small hiatal hernia and mild degenerative changes in the spine. Fleischner guidelines were followed. External Record Review External record reviewed: Inpatient record, Office record and Outpatient record Prescription Management I considered prescription management with: Other Discharge Plan Discharge Clinical Impression: Nausea vomiting and diarrhea Patient Disposition: Home, Self-Care Instructions: Acute Nausea and Vomiting (ED), Acute Diarrhea (ED) Additional Instructions: You have been evaluated in the emergency department today for nausea, vomiting, and diarrhea. Your evaluation suggests that your symptoms are most likely due to a viral illness which will improve on it's own with rest and fluids. Remember to drink plenty of fluids at home. You are being prescribed ondansetron which you can use as per the prescription instructions for nausea. Please follow up with your primary care provider within two days. Return to the emergency department if you experience worsening or uncontrolled pain, inability to tolerate fluids by mouth, difficulty breathing, fevers 100.4? F or greater, recurrent vomiting, or any other concerning symptoms. Prescriptions: New ondansetron 4 mg tablet,disintegrating 4 mg PO Q8H PRN (Reason: nausea and vomiting) Qty: 10 0RF No Action fluticasone propionate 50 mcg/actuation spray,suspension 1 spray intranasal BID Qty: 48 3RF ipratropium-albuterol 0.5 mg-3 mg(2.5 mg base)/3 mL solution for nebulization 3 ml inhalation Q8H Qty: 360 0RF ipratropium bromide 42 mcg (0.06 %) spray,non-aerosol 2 spray intranasal TID Qty: 15 2RF budesonide-formoterol [Symbicort] 160-4.5 mcg/actuation HFA aerosol inhaler 2 puff inhalation BID Qty: 10.2 6RF acetaminophen 650 mg tablet extended release 650 mg PO Q12H PRN (Reason: pain) 90 Days Qty: 180 2RF omeprazole 20 mg capsule,delayed release(DR/EC) 20 mg PO .daily Qty: 90 4RF furosemide 40 mg tablet 40 mg PO BID 90 Days Qty: 180 6RF albuterol sulfate [Ventolin HFA] 90 mcg/actuation HFA aerosol inhaler 2 puff inhalation Q4-6H PRN (Reason: for wheezing) Qty: 18 6RF fexofenadine 180 mg tablet 180 mg PO Q24H 90 Days Qty: 90 3RF cholecalciferol (vitamin D3) 25 mcg (1,000 unit) capsule 25 mcg PO DAILY 90 Days Qty: 90 1RF gabapentin 300 mg capsule 300 mg PO BID fexofenadine 60 mg tablet 120 mg PO Q24H Qty: 90 1RF prednisone 20 mg tablet 40 mg PO DAILY Qty: 10 0RF amoxicillin-pot clavulanate 875-125 mg tablet 1 tab PO BID Qty: 14 0RF Print Language: Chinese
--- NOTE | 2024-03-25 13:09 | ECG_ITS ---
Test Reason : sob Blood Pressure : / mmHG Vent. Rate : 104 BPM Atrial Rate : 104 BPM P-R Int : 132 ms QRS Dur : 092 ms QT Int : 364 ms P-R-T Axes : 036 016 022 degrees QTc Int : 478 ms Sinus tachycardia Minimal voltage criteria for LVH, may be normal variant ( R in aVL ) Borderline ECG When compared to the previous EKG of No significant changes seen Referred By: Barbara Peguero Electronically Signed By:JOSE E NOONAN MD
[2024-03-25 14:00] LABS: MANUAL DIFF FLAG NO
[2024-03-25 14:02] LABS: Basophils Absolute Auto 0.1 X10*3/uL (0.0-0.2); Basophils Percent Auto 0.4 % (0-2); Eosinophils Percent Auto 7.1 % (0-4); Hematocrit 40.2 % (37.0-47.0); Hemoglobin 13.7 g/dl (12.0-16.0); Imm Gran Pct Auto 1.4 % (0.0-0.4); Lymphocytes Absolute Auto 3.2 X10*3/uL (1.2-4.9); Lymphocytes Percent Auto 23.1 % (20-40); Mean Corpuscular HGB Conc 34.1 g/dl (31.0-35.0); Mean Corpuscular Hemoglobin 30.6 pg (27.0-33.0); Mean Corpuscular Volume 89.9 fL (80.0-98.0); Mean Platelet Volume 11.2 fL (9.4-12.3); Monocytes Absolute Auto 1.2 X10*3/uL (0.1-1.2); Monocytes Percent Auto 8.3 % (2-11); Neutrophils Absolute Auto 8.3 x10*3/uL (2.0-8.3); Neutrophils Percent Auto 59.7 % (45-73); Platelet Count 196 X10*3/uL (160-400); Red Blood Count 4.47 X10*6/uL (4.20-5.50); Red Cell Distribution Width 13.1 % (11.0-16.0); White Blood Count 13.9 X10*3/uL (4.8-10.8)
--- NOTE | 2024-03-25 14:13 | PC.RT ---
Rt went out to waiting room x3 to find pt. No pt responded to name called. Rt will find and assess pt for bronch protocol when they have a room in ED.
[2024-03-25 14:16] LABS: Alanine Aminotransferase 23 U/L (0-31); Albumin Level 4.1 g/dL (3.5-5.0); Alkaline Phosphatase 79 U/L (39-117); Anion Gap 15 (12-20); Aspartate Amino Transferase 18 U/L (5-31); Bilirubin Direct 0.2 mg/dL (0.0-0.5); Bilirubin Total 0.4 mg/dL (0.0-1.0); Blood Urea Nitrogen 8 mg/dL (9-16); Calcium 9.4 mg/dL (8.4-10.2); Carbon Dioxide 25 mmol/L (22-29); Chloride 106 mmol/L (96-108); Creatinine Clr Calc Pharmacy 93.4; Estimated Glomerular Filt Rate > 60; Glucose Random 83 mg/dL (60-115); Magnesium 1.9 mg/dL (1.6-2.6); Potassium 3.6 mmol/L (3.3-5.1); Sodium 142 mmol/L (135-145); Total Protein 7.4 g/dL (6.5-8.0)
[2024-03-25 14:21] LABS: B Type Natriuretic Peptide < 10 pg/mL (<100)
[2024-03-25 14:27] LABS: Troponin-I High Sensitivity < 2.7 ng/L (<3.5-17.0)
[2024-03-25 14:44] LABS: IDNOW Serial# 08D9AD1C; Strep A Nucleic Acid Negative (Negative)
[2024-03-25] MEDS: Albuterol Sulfate 5 MG, Albuterol/Iprat 2.5/0.5MG 3 ML 3 ML INHALE ×2 (14:50→18:13)
[2024-03-25 14:53] LABS: Influenza A PCR NEGATIVE (Negative); Influenza B PCR NEGATIVE (Negative); Resp Syncy Virus RNA Qual PCR NEGATIVE (Negative); SARS COV2 PCR INHOUSE NEGATIVE (Negative)
--- NOTE | 2024-03-25 16:41 | PC.NURSE ---
Pt reports to ED today with c/o Asthma that has been worsening x4 days. Reports home inhaler does not provide any relief and she now has pain in her stomach and chest. A&Ox3, VSS, afebrile. Labs completed. Awaiting ED provider.
[2024-03-25] MEDS: iohexoL 350 MG/ML 100 ML INFUS..BTL IV (20:04)
[2024-03-25] MEDS: diphenhydrAMINE HCL 50 MG/ML VIAL 25 MG IVPUSH (20:08)
[2024-03-25] MEDS: 0.9 % Sodium Chloride 1,000 ML 999 ML IV (20:09)
== END 2024-03-25 23:06 | disposition home or self-care (01) ==
PROVIDERS: Physician Assistant; Emergency Provider Emergency Medicine Emergency Medical Services; PCP Internal Medicine
DX: R11.2 Nausea with vomiting, unspecified (principal); R19.7 Diarrhea, unspecified; R10.9 Unspecified abdominal pain; J02.9 Acute pharyngitis, unspecified; R50.9 Fever, unspecified; J45.50 Severe persistent asthma, uncomplicated; R11.10 Vomiting, unspecified; R06.02 Shortness of breath; Z79.899 Other long term (current) drug therapy; Z03.818 Encounter for observation for suspected exposure to other biological agents ruled out
CPT/HCPCS: 0241U; 36415; 71045; 74177; 80048; 80076; 83735; 83880; 84484; 85025; 87651; 93005; 94640; 96361; 96374; 99285; J1200; Q9967

== ENCOUNTER → 2024-03-25 13:09 | Outpatient (BNV) | payer OTHER, SELFPAY | PROVIDERS: Emergency Provider Emergency Medicine Emergency Medical Services; PCP Internal Medicine; Visit Provider Internal Medicine Cardiovascular Disease | DX: R06.02 Shortness of breath (principal) | CPT/HCPCS: 93010 ==

== ENCOUNTER 2024-04-15 14:34 | Outpatient (AMB) | payer OTHER, SELFPAY ==
--- NOTE | 2024-04-15 14:36 | A.OFFVIS_ITS ---
Intake Visit Reasons: Follow Up Micro Intake Note: Patient presents for follow up micro. States she feels better , the incisions have healed. Patient states she still has a lot of veins that she would like Dr Keenan to view. Allergies seafood Allergy (Severe, Verified 04/15/24 14:39) Facial Swelling pollen extracts [POLLEN] Allergy (Mild, Verified 04/15/24 14:39) ITCHY EYES apple [APPLES] Allergy (Unknown, Verified 04/15/24 14:39) HIVES egg [EGGS] Allergy (Unknown, Verified 04/15/24 14:39) HIVES peanut [PEANUTS] Allergy (Unknown, Verified 04/15/24 14:39) HIVES garlic Adverse Reaction (Intermediate, Verified 04/15/24 14:39) Face swelling HPI HPI Follow Up Micro: Details: Very pleasant 64-year-old female presents for follow-up status post left lower extremity microphlebectomy. In general reports that her leg is doing significantly better. Veins appear to be decreasing. Overall discomfort has improved. She does still have some residual varicosities. But in general feels better. [facility] Medical History Chronic back pain Asthma Surgical History No pertinent past surgical history Social History Housing: Apartment Alcohol intake: never Patient Tobacco Use Status: Never used Tobacco e-Cigarette/Vaping Use: Never Used Second Hand Smoke Exposure: No Current occupational status: disabled Cognitive needs: No Hearing needs: No Vision needs: No Review of Systems Const All systems reviewed & are unremarkable except as noted in HPI and below Reports no additional complaints ENT Reports Normal hearing present Card Denies chest pain, Denies chest pain at rest, Denies chest pain with activity and Denies pedal edema Resp Denies cough GI Denies abdominal pain Musc Denies abnormal gait, Denies muscle cramps and Denies radiating pain into limb Skin/Breast Denies skin ulcer and Denies wounds Neuro Reports Normal hearing present and Denies abnormal gait Psych Reports no additional complaints Physical Exam Const General: cooperative, healthy appearing and comfortable Orientation/consciousness: oriented to person, oriented to place and oriented to time HEENT Head: Yes normal to inspection Neck Neck: Yes normal visual inspection Carotids: no bruits Chest Chest palpation & inspection: normal inspection of the chest Resp Effort & Inspection: normal respiratory effort and able to speak in complete sentences Auscultation: clear to auscultation bilaterally, no crackles, no rales, no rhonchi and no wheezes Cardio Rate: regular rate Rhythm: regular rhythm Heart sounds: S1 normal heart sound present and S2 normal heart sound present Bruits: no carotid bruits Peripheral pulses: Peripheral pulses 2+ throughout GI Inspection: Yes normal to inspection Skin Wounds: no wounds Hair: normal Neuro General: oriented to person, oriented to place and oriented to time Cranial nerves: Yes CN's II-XII intact bilaterally and Yes Normal hearing present Cognition (Neuro): normal cognition Motor exam (neuro): 5/5 motor strength present throughout Extrem Other: venous exam: Residual varicosities left lower extremity. Incisions appear to be well healing. General: No clubbing, No cyanosis and No edema Psych Appearance: grossly normal Mental Status: mental status grossly normal Speech and movement: Normal speech and movement present Assessment & Plan Assessment & Plan (1) Varicose veins of left lower extremity with inflammation: Comment: 12/12/2023 - left GSV Radiofrequency ablation 03/05/2024 - left leg microphlebectomy Code(s): I83.12 - Varicose veins of left lower extremity with inflammation Category: Medical Plan: In short patient has done extremely well status post left lower extremity microphlebectomy. At the current time would continue with conservative measures including compression elevation and exercise. She does have some residual varicosities. I would like to manage them conservatively for now. She can follow up with us in approximately 3 months time to ensure that they have completely gone and no additional varicosities are appreciated. Once again she will follow up with us in approximately 3 months time. Thank you for allowing us to assist in her care. If there are any questions or concerns please do not hesitate to contact us Coding Level of Care Code Est Pt Level 4 (70533) Diagnoses Varicose veins of left lower extremity with inflammation I83.12
== END 2024-04-15 14:46 | disposition home or self-care (01) ==
PROVIDERS: PCP Internal Medicine; Visit Provider Surgery Vascular Surgery
DX: I83.12 Varicose veins of left lower extremity with inflammation (principal)
CPT/HCPCS: 99214

== ENCOUNTER → 2024-04-15 14:34 | Outpatient (BNVA) | payer OTHER, SELFPAY | PROVIDERS: PCP Internal Medicine; Visit Provider Surgery Vascular Surgery | DX: I83.12 Varicose veins of left lower extremity with inflammation (principal) | CPT/HCPCS: 99212 ==

== ENCOUNTER 2024-06-28 14:21 | Outpatient (REF) | payer OTHER, SELFPAY ==
--- NOTE | ~2024-06-28 | MM_ITS ---
EXAMINATION: MM SCREENING DIGITAL BREAST TOMOSYNTHESIS, BILATERAL CLINICAL INFORMATION: Screening. Asymptomatic. COMPARISON: Mammography: Comparison is made with available priors TECHNIQUE: Digital breast mammography with tomosynthesis is performed in both the craniocaudal and mediolateral oblique views along with computer-aided detection (CAD). FINDINGS: There are scattered areas of fibroglandular density (ACR BI-RADS breast composition Category b). There are no significant masses, abnormal calcifications, or other abnormalities. MM/MM tomosynthesis screening BI IMPRESSION: No mammographic evidence of malignancy. ASSESSMENT: BI-RADS BI-RADS 1 - Negative RECOMMENDATION: Routine annual mammography screening. 1 year F/U This examination should not preclude the clinical evaluation of a suspicious palpable abnormality. This patient's information was entered into a reminder system with a target due date for their next mammogram. Electronically signed by: Rosalia Batres DO 07/09/2024 10:47 AM EDT
== END 2024-06-28 14:22 | disposition home or self-care (01) ==
LOC: HO.MAMMO 14:21
PROVIDERS: PCP Internal Medicine; Visit Provider Internal Medicine
DX: Z12.31 Encounter for screening mammogram for malignant neoplasm of breast (principal)
CPT/HCPCS: 77063; 77067

== ENCOUNTER → 2024-06-28 14:45 | Outpatient (BNV) | payer OTHER, SELFPAY | PROVIDERS: PCP Internal Medicine; Visit Provider Internal Medicine | DX: Z12.31 Encounter for screening mammogram for malignant neoplasm of breast (principal) | CPT/HCPCS: 77063; 77067 ==

== ENCOUNTER 2024-07-13 09:59 | Outpatient (AMB) | payer OTHER, SELFPAY ==
--- NOTE | 2024-07-13 10:07 | MHC.OFFVIS ---
Intake Visit Reasons: 3 Month Leg Check Intake Note: 3 mo leg check for Left Leg micro 03/05/24 and Hx of Left GSV RFA 12/12/23. Pt states Left LE is feeling better, no more pain or large VV. No complaints Accompanied by: Self / Same As Patient Allergies seafood Allergy (Severe, Verified 07/13/24 10:13) Facial Swelling pollen extracts [POLLEN] Allergy (Mild, Verified 07/13/24 10:13) ITCHY EYES apple [APPLES] Allergy (Unknown, Verified 07/13/24 10:13) HIVES egg [EGGS] Allergy (Unknown, Verified 07/13/24 10:13) HIVES peanut [PEANUTS] Allergy (Unknown, Verified 07/13/24 10:13) HIVES garlic Adverse Reaction (Intermediate, Verified 07/13/24 10:13) Face swelling dog dander Adverse Reaction (Mild, Verified 07/13/24 10:13) Itching HPI HPI 3 Month Leg Check: Details: Very pleasant 64-year-old female presents for follow-up status post left lower extremity microphlebectomy. In general appears to be doing relatively well. She did have some residual varicosities which appeared to have diminished as well. She does have multiple spider telangiectasias but in general reports that she does feel significantly better. She now presents for routine follow-up [facility] Medical History Chronic back pain Asthma Surgical History No pertinent past surgical history Social History Housing: Apartment Alcohol intake: never Patient Tobacco Use Status: Never used Tobacco e-Cigarette/Vaping Use: Never Used Second Hand Smoke Exposure: No Current occupational status: disabled Cognitive needs: No Hearing needs: No Vision needs: No Review of Systems Const All systems reviewed & are unremarkable except as noted in HPI and below Reports no additional complaints ENT Reports Normal hearing present Card Denies chest pain, Denies chest pain at rest, Denies chest pain with activity and Denies pedal edema Resp Denies cough GI Denies abdominal pain Musc Denies abnormal gait, Denies muscle cramps and Denies radiating pain into limb Skin/Breast Denies skin ulcer and Denies wounds Neuro Reports Normal hearing present and Denies abnormal gait Psych Reports no additional complaints Physical Exam Const General: cooperative, healthy appearing and comfortable Orientation/consciousness: oriented to person, oriented to place and oriented to time HEENT Head: Yes normal to inspection Neck Neck: Yes normal visual inspection Carotids: no bruits Chest Chest palpation & inspection: normal inspection of the chest Resp Effort & Inspection: normal respiratory effort and able to speak in complete sentences Auscultation: clear to auscultation bilaterally, no crackles, no rales, no rhonchi and no wheezes Cardio Rate: regular rate Rhythm: regular rhythm Heart sounds: S1 normal heart sound present and S2 normal heart sound present Bruits: no carotid bruits Peripheral pulses: Peripheral pulses 2+ throughout GI Inspection: Yes normal to inspection Skin Wounds: no wounds Hair: normal Neuro General: oriented to person, oriented to place and oriented to time Cranial nerves: Yes CN's II-XII intact bilaterally and Yes Normal hearing present Cognition (Neuro): normal cognition Motor exam (neuro): 5/5 motor strength present throughout Extrem Other: venous exam: No significant superficial varicosities or spider telangiectasias, minimal edema General: No clubbing, No cyanosis and No edema Psych Appearance: grossly normal Mental Status: mental status grossly normal Speech and movement: Normal speech and movement present Assessment & Plan Assessment & Plan (1) Varicose veins of left lower extremity with inflammation: Comment: 12/12/2023 - left GSV Radiofrequency ablation 03/05/2024 - left leg microphlebectomy Code(s): I83.12 - Varicose veins of left lower extremity with inflammation Category: Medical Plan: The patient has done extremely well with all venous treatments. She does have some residual spider telangiectasias which are more cosmetic in nature. Patient's may often experience postprocedure phlebitic episodes and I have discussed with the patient use of warm compresses and NSAIDS if tolerated for pain discomfort. In addition, I have discussed continued conservative measures including use of compression, leg elevation, and exercise. The patient was also given an information sheet regarding appropriate use of compression stockings and future purchases. Thank you for allowing us to care for your patient with venous disease. Coding Level of Care Code Est Pt Level 3 (57440) Diagnoses Varicose veins of left lower extremity with inflammation I83.12
== END 2024-07-13 10:41 | disposition home or self-care (01) ==
LOC: HO.HVS 09:59
PROVIDERS: PCP Internal Medicine; Visit Provider Surgery Vascular Surgery
DX: I83.12 Varicose veins of left lower extremity with inflammation (principal)
CPT/HCPCS: 99213

== ENCOUNTER → 2024-07-13 09:59 | Outpatient (BNVA) | payer OTHER, SELFPAY | PROVIDERS: PCP Internal Medicine; Visit Provider Surgery Vascular Surgery | DX: I83.12 Varicose veins of left lower extremity with inflammation (principal) | CPT/HCPCS: 99212 ==

== ENCOUNTER 2024-07-20 13:23 | Outpatient (AMB) | payer OTHER, SELFPAY ==
[2024-07-20 13:30] VITALS: BP 142/92; PULSE 101; O2SAT 98; BMI 34.0
--- NOTE | 2024-07-20 13:30 | A.OFFVIS_ITS ---
Vital Signs 07/20/24 13:30 Height 5 ft 4 in Weight 198 lb BMI 34.0 BP 142/92 H Blood Pressure Location Rt brachial Position Sitting Pulse 101 H Pulse Source Doppler Pulse Oximetry (%) 98 Oxygen Delivery Method Room Air Intake Visit Reasons: asthma Allergies seafood Allergy (Severe, Verified 07/13/24 10:13) Facial Swelling pollen extracts [POLLEN] Allergy (Mild, Verified 07/13/24 10:13) ITCHY EYES apple [APPLES] Allergy (Unknown, Verified 07/13/24 10:13) HIVES egg [EGGS] Allergy (Unknown, Verified 07/13/24 10:13) HIVES peanut [PEANUTS] Allergy (Unknown, Verified 07/13/24 10:13) HIVES garlic Adverse Reaction (Intermediate, Verified 07/13/24 10:13) Face swelling dog dander Adverse Reaction (Mild, Verified 07/13/24 10:13) Itching HPI HPI asthma: Details: 64-year-old lady followed for severe persistent asthma, DOLLY, and dyspnea on exertion. She has been using Symbicort 160, Singulair, albuterol MDI and nebs with suboptimal control of her underlying symptoms previous. Patient was approved for Xolair, but she has not started that yet.. She continues to use Lasix 40 mg twice a day.? She is following with senior electrical estimator for underlying diastolic dysfunction.? Patient is using her CPAP with good control of her underlying DOLLY.? Today she has complain of difficulty breathing associated with upper respiratory symptoms including sore throat and cough productive of yellowish sputum. [facility] Medical History Chronic back pain Asthma Surgical History No pertinent past surgical history Social History Housing: Apartment Alcohol intake: never Patient Tobacco Use Status: Never used Tobacco e-Cigarette/Vaping Use: Never Used Second Hand Smoke Exposure: No Current occupational status: disabled Cognitive needs: No Hearing needs: No Vision needs: No Review of Systems Const Denies daytime sleepiness, Denies excessive sweating, Denies fatigue, Denies fever(s), Denies lethargy, Denies malaise, Denies night sweats, Denies snoring and Denies weight loss Eyes Denies blurry vision and Denies itchy eyes ENT Denies nasal congestion, Denies post nasal drip, Denies sinus pain, Denies sinus pressure and Denies other ( Thrush) Card Denies chest pain, Denies pedal edema, Denies dyspnea, Denies orthopnea and Denies paroxysmal nocturnal dyspnea Resp Reports cough, Denies hemoptysis, Reports excessive phlegm production, Denies dyspnea, Denies snoring and Denies wheezing GI Denies abdominal pain and Denies heartburn Musc Denies myalgias, Denies arthralgias and Denies joint swelling Skin/Breast Denies rash Neuro Denies memory loss and Denies seizure-like activity Psych Denies abnormal sleep pattern, Denies anxiety and Denies memory loss Endo Denies excessive sweating, Denies fatigue and Denies heat intolerance Ever/Lymph Denies easy bruising Aller/Immun Denies itchy eyes, Denies seasonal rhinorrhea and Denies wheezing Physical Exam Vital Signs: Last Vital Signs Pulse 101 H 07/20/24 13:30 BP 142/92 H 07/20/24 13:30 Pulse Ox 98 07/20/24 13:30 Oxygen Delivery Method Room Air 07/20/24 13:30 BMI result Body Mass Index 34.0 Const General: no acute distress and alert Nutritional Appearance: not obese Orientation/consciousness: Other orientation findings ( oriented) HEENT Other: Unable to visualize posterior pharynx. Head: Yes atraumatic Eyes General: appearance normal, both eyes and all related structures Sclerae: sclerae normal EOM: EOMs intact bilaterally Neck Neck: Yes supple Lymphatic: no lymphadenopathy noted Resp Effort & Inspection: normal respiratory effort and no use of accessory muscles Auscultation: clear to auscultation bilaterally Cardio Rate: regular rate Rhythm: regular rhythm Heart sounds: no gallops, no murmurs and no rubs Skin General skin exam: other ( warm) Extrem General: No clubbing, No cyanosis and No edema Assessment & Plan Assessment & Plan (1) Severe persistent asthma: Code(s): J45.50 - Severe persistent asthma, uncomplicated Category: Medical Plan: Suboptimal control on Symbicort, duo nebs and albuterol MDI. Patient has been improved but not started on Xolair. Now with pharyngitis symptoms, will treat with a course of Augmentin. Will rediscuss Xolair after patient recovers from acute upper respiratory illness. (2) Environmental allergies: Code(s): Z91.09 - Other allergy status, other than to drugs and biological substances Category: Medical Plan: Expect to improve on Xolair. Continue Sylwia at this time. Medications: Refilled amoxicillin-pot clavulanate 875-125 mg 1 tab PO BID 14 tabs 0RF Coding Level of Care Code Est Pt Level 4 (35637) Complex EM visit Add On G2211 Diagnoses Severe persistent asthma J45.50 Environmental allergies Z91.09
== END 2024-07-20 13:47 | disposition home or self-care (01) ==
PROVIDERS: PCP Internal Medicine; Visit Provider Internal Medicine Pulmonary Disease
DX: J45.50 Severe persistent asthma, uncomplicated (principal); Z91.09 Other allergy status, other than to drugs and biological substances
CPT/HCPCS: 99214; G2211

== ENCOUNTER → 2024-07-20 13:23 | Outpatient (BNVA) | payer OTHER, SELFPAY | PROVIDERS: PCP Internal Medicine; Visit Provider Internal Medicine Pulmonary Disease | DX: J45.50 Severe persistent asthma, uncomplicated (principal); G47.33 Obstructive sleep apnea (adult) (pediatric); I51.89 Other ill-defined heart diseases; Z91.09 Other allergy status, other than to drugs and biological substances; Z99.89 Dependence on other enabling machines and devices; Z79.899 Other long term (current) drug therapy | CPT/HCPCS: 99212 ==

== ENCOUNTER 2024-11-11 13:31 | Outpatient (REF) | payer OTHER, SELFPAY ==
[2024-11-11 18:36] LABS: Influenza A PCR NEGATIVE (Negative); Influenza B PCR NEGATIVE (Negative); Resp Syncy Virus RNA Qual PCR NEGATIVE (Negative); SARS COV2 PCR INHOUSE NEGATIVE (Negative)
--- OUTSIDE RECORDS SUMMARY | 2024-11-11 19:35 | XMS_ITS | Clinical Summary ---
Author Organization [facility] Address [address] [place] [address] Phone Care Team Providers Care Fresh Foods Clerk Name Role Phone Nancy Corrales MD Primary Care Provider [phone] Allergies Active Allergy Reactions Criticality Noted Date [...] this topic Insurance MEDICAID MEDICAID Care Teams Fresh Foods Clerk Relationship Specialty Start Date End Date Nancy Corrales MD [facility] [place] [address] PCP - General Internal Medicine 05/29/21
== END 2024-11-11 13:32 | disposition home or self-care (01) ==
LOC: HO.LNP 13:31
PROVIDERS: PCP Internal Medicine; Visit Provider Internal Medicine Pulmonary Disease
DX: J45.50 Severe persistent asthma, uncomplicated (principal); R05.9 Cough, unspecified
CPT/HCPCS: 0241U; 99212

== ENCOUNTER 2024-11-11 13:31 | Outpatient (AMB) | payer OTHER, SELFPAY ==
[2024-11-11 13:51] VITALS: BP 122/78; PULSE 119; TEMP 37.7; O2SAT 95; BMI 33.3
--- NOTE | 2024-11-11 13:51 | A.OFFVIS_ITS ---
Vital Signs 11/11/24 13:51 Height 5 ft 4 in Weight 194 lb BMI 33.3 BP 122/78 Blood Pressure Location Lt brachial Position Sitting Pulse 119 H Pulse Source Doppler Temp 99.8 F Temp Source Temporal Artery Scan Pulse Oximetry (%) 95 Oxygen Delivery Method Room Air Intake Visit Reasons: Asthma Allergies seafood Allergy (Severe, Verified 07/13/24 10:13) Facial Swelling pollen extracts [POLLEN] Allergy (Mild, Verified 07/13/24 10:13) ITCHY EYES apple [APPLES] Allergy (Unknown, Verified 07/13/24 10:13) HIVES egg [EGGS] Allergy (Unknown, Verified 07/13/24 10:13) HIVES peanut [PEANUTS] Allergy (Unknown, Verified 07/13/24 10:13) HIVES garlic Adverse Reaction (Intermediate, Verified 07/13/24 10:13) Face swelling dog dander Adverse Reaction (Mild, Verified 07/13/24 10:13) Itching HPI HPI Asthma: Details: 64-year-old lady followed for severe persistent asthma, DOLLY, and dyspnea on exertion. She has been using Symbicort 160, Singulair, albuterol MDI and nebs with suboptimal control of her underlying symptoms previous. Patient was approved for Xolair, but she has not started that yet. She continues to use Lasix 40 mg twice a day.? She is following with director of retail marketing for underlying diastolic dysfunction.? Patient is using her CPAP with good control of her underlying DOLLY.? Today she has complains of muscle aches, cough, and fever. [facility] Medical History Chronic back pain Asthma Surgical History No pertinent past surgical history Social History Housing: Apartment Alcohol intake: never Patient Tobacco Use Status: Never used Tobacco e-Cigarette/Vaping Use: Never Used Second Hand Smoke Exposure: No Current occupational status: disabled Cognitive needs: No Hearing needs: No Vision needs: No Review of Systems Const Denies daytime sleepiness, Denies excessive sweating, Denies fatigue, Reports fever(s), Denies lethargy, Denies malaise, Denies night sweats, Denies snoring and Denies weight loss Eyes Denies blurry vision and Denies itchy eyes ENT Denies nasal congestion, Denies post nasal drip, Denies sinus pain, Denies sinus pressure and Denies other ( Thrush) Card Denies chest pain, Denies pedal edema, Denies dyspnea, Denies orthopnea and Denies paroxysmal nocturnal dyspnea Resp Reports cough, Denies hemoptysis, Denies excessive phlegm production, Denies dyspnea, Denies snoring and Denies wheezing GI Denies abdominal pain and Denies heartburn Musc Reports myalgias, Denies arthralgias and Denies joint swelling Skin/Breast Denies rash Neuro Denies memory loss and Denies seizure-like activity Psych Denies abnormal sleep pattern, Denies anxiety and Denies memory loss Endo Denies excessive sweating, Denies fatigue and Denies heat intolerance Ever/Lymph Denies easy bruising Aller/Immun Denies itchy eyes, Denies seasonal rhinorrhea and Denies wheezing Physical Exam Vital Signs: Last Vital Signs Temp 99.8 F 11/11/24 13:51 Pulse 119 H 11/11/24 13:51 BP 122/78 11/11/24 13:51 Pulse Ox 95 11/11/24 13:51 Oxygen Delivery Method Room Air 11/11/24 13:51 BMI result Body Mass Index 33.3 Const General: no acute distress and alert Nutritional Appearance: not obese Orientation/consciousness: Other orientation findings ( oriented) HEENT Head: Yes atraumatic Eyes General: appearance normal, both eyes and all related structures Sclerae: sclerae normal EOM: EOMs intact bilaterally Neck Neck: Yes supple Lymphatic: no lymphadenopathy noted Resp Effort & Inspection: normal respiratory effort and no use of accessory muscles Auscultation: clear to auscultation bilaterally Cardio Rate: regular rate Rhythm: regular rhythm Heart sounds: no gallops, no murmurs and no rubs Skin General skin exam: other ( warm) Extrem General: No clubbing, No cyanosis and No edema Assessment & Plan Assessment & Plan (1) Severe persistent asthma: Code(s): J45.50 - Severe persistent asthma, uncomplicated Category: Medical Plan: Suboptimal control on maximum inhaled bronchodilator therapy with Symbicort, duo nebs, albuterol MDI. Patient is not interested in Xolair therapy at this time. (2) Cough: Code(s): R05.9 - Cough, unspecified Category: Medical Plan: Will treat for acute exacerbation with a course of Levaquin and prednisone. Will obtain respiratory panel testing. (3) Environmental allergies: Code(s): Z91.09 - Other allergy status, other than to drugs and biological substances Category: Medical Plan: Patient is not interested in Xolair at this time. Continue on Sylwia and Flonase. (4) DOLLY on CPAP: Code(s): G47.33 - Obstructive sleep apnea (adult) (pediatric); Z99.89 - Dependence on other enabling machines and devices Category: Medical Plan: Controlled current CPAP therapy. Continue CPAP therapy. Orders: Orders SARS-CoV2/FLU/RSV Today R05.9 - Cough, unspecified Medications: New levofloxacin 750 mg PO DAILY 7 tabs 0RF prednisone 40 mg (2 x 20 mg) PO DAILY 10 tabs 0RF Coding Level of Care Code Est Pt Level 4 (22646) Complex EM visit Add On G2211 Diagnoses Severe persistent asthma J45.50 Cough R05.9 Environmental allergies Z91.09 DOLLY on CPAP G47.33; Z99.89
--- OUTSIDE RECORDS SUMMARY | 2024-11-11 16:27 | XMS_ITS | Clinical Summary ---
Author Organization [facility] Address [address] [place] [address] Phone Care Team Providers Care Enhanced Environmental Operator Name Role Phone Nancy Corrales MD Primary Care Provider [phone] Allergies Active Allergy Reactions Criticality Noted Date Comments Apple Juice 08/24/2021 Egg-Derived Products 08/24/2021 Peanut-Containing Drug Products 08/08 Pollen Extract 08/24/2021 Medications acetaminophen (TYLENOL 8 HOUR) 650 MG 8 hr tablet 07/18/2021 Active ProAir HFA 108 (90 Base) MCG/ACT inhaler 08/06/2021 Act zandra Symbicort 160-4.5 MCG/ACT inhaler 08/22/2021 Active fexofenadine (ELANA) 180 MG tablet Take 1 tablet by mouth 1 (one) time each day 08/07/2021 Active furosemide (LASIX) 40 MG tablet Take 1 tablet by mouth 1 (one) time each day 07/22/2021 Active ipratropium-albu terol (DUO-NEB) 0.5-2.5 mg/3 mL nebulizer solution 08/06/2021 Active oxyCODONE-acetam inophen (PERCOCET) 5-325 MG per tablet 08/01/2021 Activ e predniSONE (DELTASONE) 20 MG tablet 07/16/2021 Active Active Problems Problem Noted Date Diagnosed Date Edema 08/24/2021 Social History Tobacco Use Types Packs/Day Years Used Date Smoking Tobacco: Never Assessed Comments Unknown Sex and Gender Information Value Date Recorded Sex Assigned at Not on file Legal Sex Female 11:11 AM EDT Gender Identity Not on file Sexual Orientation Not on file Last Filed Vital Signs Vital Sign Reading Time Taken Comments Blood Pressure 144/81 07/02/2022 2:53 PM EDT Pulse 74 07/02/2022 2:53 PM EDT Temperature - - Respiratory Rate - - Oxygen Saturation 98% 07/02/2022 2:53 PM EDT Inhaled Oxygen Concentration - - Weight 92.1 kg (203 lb) 07/02/2022 2:53 PM EDT Height - - Body Mass Index - - Plan of Treatment Health Maintenance Due Date Last Done Comments Breast Cancer Screening 1960 Colorectal Cancer Screening: Annual FOBT 2009 Colorectal Cancer Screening: Colonoscopy 2009 Colorectal Cancer Screening: Sigmoidoscopy 2009 Influenza Vaccine (#1) 2024 Hepatitis B Vaccine Aged Out No longe r eligible based on patient's age to complete this topic Pneumococcal Vaccine: Pediat rics (0 to 5 Years) and At-Risk Patients (6 to 64 Years) Aged Out No longer eligible b ased on patient's age to complete this topic Insurance MEDICAID MEDICAID Care Teams Enhanced Environmental Operator Relationship Specialty Start Date End Date Nancy Corrales MD [facility] [place] [address] PCP - General Internal Medicine 05/29/21
== END 2024-11-11 14:10 | disposition home or self-care (01) ==
PROVIDERS: PCP Internal Medicine; Visit Provider Internal Medicine Pulmonary Disease
DX: J45.50 Severe persistent asthma, uncomplicated (principal); R05.9 Cough, unspecified; Z91.09 Other allergy status, other than to drugs and biological substances; G47.33 Obstructive sleep apnea (adult) (pediatric); Z99.89 Dependence on other enabling machines and devices
CPT/HCPCS: 99214; G2211

== ENCOUNTER 2025-07-04 13:47 | Outpatient (REF) | payer MEDICARE, MEDICAID, SELFPAY | END 2025-07-04 13:48 | disposition home or self-care (01) | LOC: HO.MAMMO 13:47 | PROVIDERS: PCP Internal Medicine; Visit Provider Internal Medicine | DX: Z12.31 Encounter for screening mammogram for malignant neoplasm of breast (principal) | CPT/HCPCS: 77063; 77067 ==

== ENCOUNTER → 2025-07-04 14:15 | Outpatient (BNV) | payer MEDICARE, MEDICAID, SELFPAY | PROVIDERS: PCP Internal Medicine; Visit Provider Internal Medicine | DX: Z12.31 Encounter for screening mammogram for malignant neoplasm of breast (principal) | CPT/HCPCS: 77063; 77067 ==

== ENCOUNTER 2025-07-08 13:46 | Outpatient (AMB) | payer MEDICARE, MEDICAID, SELFPAY ==
[2025-07-08 14:04] VITALS: BP 140/82; PULSE 110; O2SAT 95; BMI 34.2
--- NOTE | 2025-07-08 14:04 | MHC.OFFVIS ---
Vital Signs 07/08/25 14:04 Height 5 ft 4 in Weight 199 lb 8.293 oz BMI 34.2 BP 140/82 H Blood Pressure Location Lt brachial Position Sitting Pulse 110 H Pulse Source Pulse Oximeter Pulse Oximetry (%) 95 Oxygen Delivery Method Room Air Intake Visit Reasons: asthma Educational Recruiter Required: No Educational Recruiter Services: Educational Recruiter Offered & Declined Allergies seafood Allergy (Severe, Verified 07/08/25 14:06) Facial Swelling pollen extracts (POLLEN) Allergy (Mild, Verified 07/08/25 14:06) ITCHY EYES apple (APPLES) Allergy (Unknown, Verified 07/08/25 14:06) HIVES egg (EGGS) Allergy (Unknown, Verified 07/08/25 14:06) HIVES peanut (PEANUTS) Allergy (Unknown, Verified 07/08/25 14:06) HIVES garlic Adverse Reaction (Intermediate, Verified 07/08/25 14:06) Face swelling dog dander Adverse Reaction (Mild, Verified 07/08/25 14:06) Itching HPI HPI asthma: Details: 65-year-old lady followed for severe persistent asthma, DOLLY, and dyspnea on exertion. She has been using Symbicort 160, Singulair, albuterol MDI and nebs with suboptimal control of her underlying symptoms previously, but recently she was notified but her insurance company that it no longer is going to cover Symbicort. Patient was approved for Xolair, but does not want to start on it at this time. She continues to use Lasix 40 mg twice a day.? She is following with poultry field service technician for underlying diastolic dysfunction.? Patient is using her CPAP with good control of her underlying DOLLY.? Today she complaining of an acute exacerbation symptomatic with cough, sputum production, and mild wheezing. [facility] Medical History Chronic back pain Asthma Surgical History No pertinent past surgical history Social History Housing: Apartment Alcohol intake: never Patient Tobacco Use Status: Never used Tobacco e-Cigarette/Vaping Use: Never Used Second Hand Smoke Exposure: No Current occupational status: disabled Cognitive needs: No Hearing needs: No Vision needs: No Review of Systems Const Denies daytime sleepiness, Denies excessive sweating, Denies fatigue, Denies fever(s), Denies lethargy, Denies malaise, Denies night sweats, Denies snoring and Denies weight loss Eyes Denies blurry vision and Denies itchy eyes ENT Denies nasal congestion, Denies post nasal drip, Denies sinus pain, Denies sinus pressure and Denies other ( Thrush) Card Denies chest pain, Denies pedal edema, Denies dyspnea, Denies orthopnea and Denies paroxysmal nocturnal dyspnea Resp Denies cough, Denies hemoptysis, Denies excessive phlegm production, Denies dyspnea, Denies snoring and Denies wheezing GI Denies abdominal pain and Denies heartburn Musc Denies myalgias, Denies arthralgias and Denies joint swelling Skin/Breast Denies rash Neuro Denies memory loss and Denies seizure-like activity Psych Denies abnormal sleep pattern, Denies anxiety and Denies memory loss Endo Denies excessive sweating, Denies fatigue and Denies heat intolerance Ever/Lymph Denies easy bruising Aller/Immun Denies itchy eyes, Denies seasonal rhinorrhea and Denies wheezing Physical Exam Vital Signs: Last Vital Signs Pulse 110 H 07/08/25 14:04 BP 140/82 H 07/08/25 14:04 Pulse Ox 95 07/08/25 14:04 Oxygen Delivery Method Room Air 07/08/25 14:04 BMI result Body Mass Index 34.2 Const General: no acute distress and alert Nutritional Appearance: not obese Orientation/consciousness: Other orientation findings ( oriented) HEENT Head: Yes atraumatic Eyes General: appearance normal, both eyes and all related structures Sclerae: sclerae normal EOM: EOMs intact bilaterally Neck Neck: Yes supple Lymphatic: no lymphadenopathy noted Resp Effort & Inspection: normal respiratory effort and no use of accessory muscles Auscultation: clear to auscultation bilaterally Cardio Rate: regular rate Rhythm: regular rhythm Heart sounds: no gallops, no murmurs and no rubs Skin General skin exam: other ( warm) Extrem General: No clubbing, No cyanosis and No edema Assessment & Plan Assessment & Plan (1) Severe persistent asthma: Code(s): J45.50 - Severe persistent asthma, uncomplicated Category: Medical Plan: Previously controlled on Symbicort, duo nebs, and albuterol MDI. Insurance no longer as covering Symbicort, will switch to AirDuo. Will treat mild exacerbation with a course of prednisone and Levaquin. (2) DOLLY on CPAP: Code(s): G47.33 - Obstructive sleep apnea (adult) (pediatric); Z99.89 - Dependence on other enabling machines and devices Category: Medical Plan: Controlled on CPAP therapy. Continue CPAP therapy. Medications: New fluticasone propion-salmeterol 232-14 mcg/actuation (AirDuo Digihaler) 1 inh inhalation BID 1 ea 6RF levofloxacin 750 mg PO DAILY 7 tabs 0RF prednisone 40 mg (2 x 20 mg) PO DAILY 10 tabs 0RF Coding Level of Care Code Est Pt Level 4 (34220) Diagnoses Severe persistent asthma J45.50 DOLLY on CPAP G47.33; Z99.89
--- OUTSIDE RECORDS SUMMARY | 2025-07-08 14:43 | XMS_ITS | Clinical Summary ---
Author Organization [facility] Address [address] [place] [address] Phone Care Team Providers Care Grinding Wheel Operator Name Role Phone Nancy Corrales MD Primary Care Provider [phone] Allergies Active Allergy Reactions Criticality Noted Date Comments Apple Juice 08/24/2021 Egg Protein-Containing Drug Products 08/24/2021 Peanut-Containing Drug Products 08/08 Pollen [...] Colonoscopy 2009 Colorectal Cancer Screening: Sigmoidoscopy 2009 Pneumococcal Vaccine: 50+ Ye ars (1 of 1 - PCV) 2010 Influenza Vaccine (#1) 2025 Hepatitis B Vaccine Aged Out No longe r eligible based on patient's age to complete this topic Insurance Medicaid Medicaid Care Teams Grinding Wheel Operator Relationship Specialty Start Date End Date Nancy Corrales MD [place] [address] PCP - General Internal Medicine 05/29/21
== END 2025-07-08 14:17 | disposition home or self-care (01) ==
LOC: HO.HPS 13:46
PROVIDERS: PCP Internal Medicine; Visit Provider Internal Medicine Pulmonary Disease
DX: J45.50 Severe persistent asthma, uncomplicated (principal); G47.33 Obstructive sleep apnea (adult) (pediatric); Z99.89 Dependence on other enabling machines and devices
CPT/HCPCS: 99214

== ENCOUNTER → 2025-07-08 13:46 | Outpatient (BNVA) | payer MEDICARE, MEDICAID, SELFPAY | PROVIDERS: PCP Internal Medicine; Visit Provider Internal Medicine Pulmonary Disease | DX: J45.50 Severe persistent asthma, uncomplicated (principal); G47.33 Obstructive sleep apnea (adult) (pediatric); Z99.89 Dependence on other enabling machines and devices | CPT/HCPCS: 99212 ==

== ENCOUNTER 2025-08-17 14:23 | Outpatient (REF) | payer MEDICARE, MEDICAID, SELFPAY ==
--- NOTE | ~2025-08-17 | XR_ITS ---
EXAMINATION: XR CHEST 2 VIEWS HISTORY: R09.89 - Other specified symptoms and signs involving the circulatory... COMPARISON: Comparison is made with the prior examination dated 03/25/2024. FINDINGS: PA and lateral views of the chest are submitted. There is possible pulmonary vasculature, compatible with congestion. There is no pleural effusion or pneumothorax. The heart is mildly enlarged. The bones are intact. XR/XR chest 2V IMPRESSION: Cardiomegaly and mild pulmonary vascular congestion. Electronically signed by: Osvaldo Truong MD 08/17/2025 03:24 PM [place]
== END 2025-08-17 14:24 | disposition home or self-care (01) ==
LOC: HO.HMGCX 14:23
PROVIDERS: PCP Internal Medicine; Visit Provider Internal Medicine
DX: Z00.01 Encounter for general adult medical examination with abnormal findings (principal); J44.1 Chronic obstructive pulmonary disease with (acute) exacerbation; J45.901 Unspecified asthma with (acute) exacerbation; R09.89 Other specified symptoms and signs involving the circulatory and respiratory systems; Z91.09 Other allergy status, other than to drugs and biological substances; E66.09 Other obesity due to excess calories; Z68.34 Body mass index [BMI] 34.0-34.9, adult
CPT/HCPCS: 71046; 94640; 96127; 99212; 99397

== ENCOUNTER 2025-08-17 14:23 | Outpatient (AMB) | payer MEDICARE, MEDICAID, SELFPAY ==
[2025-08-17 14:24] VITALS: BP 140/90; PULSE 113; O2SAT 94; BMI 34.0
--- NOTE | 2025-08-17 14:24 | A.OFFPC_ITS ---
Vital Signs 08/17/25 14:24 Height 5 ft 4 in Weight 198 lb BMI 34.0 BP 140/90 H Blood Pressure Location Lt brachial Position Sitting Pulse 113 H Pulse Source Pulse Oximeter Pulse Oximetry (%) 94 Intake Visit Reasons: Annual PE Allergies seafood Allergy (Severe, Verified 08/17/25 14:25) Facial Swelling pollen extracts (POLLEN) Allergy (Mild, Verified 08/17/25 14:25) ITCHY EYES apple (APPLES) Allergy (Unknown, Verified 08/17/25 14:25) HIVES egg (EGGS) Allergy (Unknown, Verified 08/17/25 14:25) HIVES peanut (PEANUTS) Allergy (Unknown, Verified 08/17/25 14:25) HIVES garlic Adverse Reaction (Intermediate, Verified 08/17/25:) Face swelling dog dander Adverse Reaction (Mild, Verified 08/17/25 14:25) Itching Medication List - Last Reconciled 08/17/25 by Nancy Corrales MD acetaminophen ER 650 mg PO Q12H PRN 90 days albuterol sulfate 90 mcg/actuation 2 puffs PO Q4-6H PRN cholecalciferol (vitamin D3) 25 mcg PO DAILY 90 days fexofenadine 120 mg (2 x 60 mg) PO Q24H fexofenadine 180 mg PO Q24H 90 days fluticasone propion-salmeterol 232-14 mcg/actuation (AirDuo Digihaler) 1 inh inhalation BID fluticasone propionate 50 mcg/actuation 1 spray intranasal BID furosemide 40 mg PO BID gabapentin 300 mg PO BID ipratropium bromide 2 sprays intranasal TID ipratropium-albuterol 0.5 mg-3 mg(2.5 mg base)/3 mL 3 mL inhalation Q8H omeprazole 20 mg PO .daily ondansetron 4 mg PO Q8H PRN Symbicort 160-4.5 mcg/actuation (budesonide-formoterol) 2 puffs inhalation BID NS Tobacco use date assessed: 08/17/25 Fall risk assessment: No Falls in past year Last assessed Fall Risk: 08/17/25 Dental Screening Dental Screen Date: 08/17/25 Did you have a dental visit in the last 12 months?: Yes Did you have a dental problem in the last 6 months where you did not have access to dental care?: No Was dental information given to patient?: Patient has dentist HPI Annual PE HPI Details History of Present Illness The patient is a 65 year old female presenting with an annual physical examination and a cough with phlegm for the past couple of weeks. Severe Asthma: - The patient is established with a pulm onary specialist for management of severe asthma. - Her medications are primarily from her licensed physical therapy assistant. - Due to her severe asthma, she requires assistance with self-care at home. - She reports having a lot of phlegm ove r the last couple of weeks. - Her last nebulizer treatment was this morning at 10 AM. Productive Cough: - The patient has been sick for a couple of weeks with a productive cough, spitting phlegm. - She denies chest pain. Vitamin D Deficiency: - She has a history of low vitamin D and should be taking a supplement. Preventative Care: - The patient presents for an annual phy sical exam. - Her last labs from March of last year s howed normal hemoglobin and metabolic panel. - Her mammogram was in June y ear. - She had an BEAM MACHINE OPERATOR visit in July 28 and has another appointment scheduled for the of this month. - She missed a apt for colonoscopy. - She is due for tetanus, pneumonia, flu , and shingles vaccines. her Son is here, notified him Health Maintenance - The patient is due for a tetanus vacci ne. - She is due for a pneumonia vaccine. - She is due for a flu vaccine. - She is due for a shingles vaccine. - She missed a colonoscopy appointment - Her last mammogram was in June t his year. - Her last BEAM MACHINE OPERATOR visit was in July 2023, with an upcoming appointment on the of this month. - Orders for new fasting labs will be pl aced. [place] of Care - The patient is established with Dr. Feliciano harrington, a environmental air specialist, for severe asthma management. Patient Instructions - Get the tetanus, pneumonia, flu, and s hingles vaccines from a pharmacy once you are feeling better. - Complete fasting lab work as ordered. - You will receive a breathing treatment (DuaNeb) now in the office. - Go for a chest X-ray after your breath ing treatment. - Take the prescribed antibiotic and pre dnisone as directed. - Schedule a follow-up appointment in ab out 10 days to check on your condition. - Reschedule your missed colonoscopy. Review of Systems - Neurological: No headaches no dizzin ess - Ear nose throat: No sore throat no hearing difficulty no ear pain - Cardiovascular: No syncope, no chest pain, no palpitations - Gastrointestinal: No nausea vomiting or diarrhea - Endocrine: No polyuria polydipsia no heat intolerance - Genitourinary: No dysuria - Skin: No new complaints Physical Exam General: Cooperative, healthy appearing, in mild Resp distress, improved after updraft Orientation: Patient oriented x3 Head: Normal to inspection Ears: Within normal limit visually Nose: Normal external nose present Face and sinus: Normal facial exam Eyes: Appearance normal, extraocular movement intact pupils reactive Neck: Normal visual inspection and supple Respiratory: Wheezing noted, ant and post , no stridor Cardiovascular: S1 and S2 RRR GI: Normal to inspection. Soft to palpation and nontender Skin: Turgor normal, no acute findings Neuro: Patient oriented x3, motor intact Extremities: Normal to inspection . [facility] Medical History Chronic back pain Asthma Surgical History No pertinent past surgical history Social History Housing: Apartment Alcohol intake: never Patient Tobacco Use Status: Never used Tobacco e-Cigarette/Vaping Use: Never Used Second Hand Smoke Exposure: No Current occupational status: disabled Cognitive needs: No Hearing needs: No Vision needs: No Questionnaire PHQ-9 Over the last 2 weeks, how often have you been bothered by any of the following problems? 1. Little interest or pleasure in doing things: several days 2. Feeling down, depressed, or hopeless: several days 3. Trouble falling or staying asleep, or sleeping too much: nearly every day 4. Feeling tired or having little energy: more than half the days 5. Poor appetite or overeating: not at all 6. Feeling bad about yourself - or that you are a failure or have let yourself or your family down: not at all 7. Trouble concentrating on things, such as reading the newspaper or watching television: not at all 8. Moving or speaking so slowly that other people could have noticed. Or the opposite - being so fidgety or restless that you have been moving around a lot more than usual: not at all 9. Thoughts that you would be better off or of hurting yourself in some way: not at all Total score: 7 Depression Screening Interpretation: Negative Depression Screening Done: Yes 84286 - PHQ-9 Billing: Yes Source: Developed by Drs. Osvaldo Zazueta, Katey Farrell, Amari Schaeffer and colleagues, with an educational froylan from [employer]. Thrive Questionnaire Date Thrive assessed: 08/17/25 I am a: Patient What is your living situation today?: I have a steady place to live Within the past 12 months, did the food you bought not last and you didn't have the money to get more?: Never true Within the past 12 months, did you worry whether your food would run out before you got money to buy more?: Never true Do you have trouble paying for medicines?: No Do you have trouble getting transportation to medical appointments?: Yes Do you have trouble paying your heating and electricity bill?: No Do you have trouble taking care of your child, family member or friend?: No Do you have trouble with day-to-day activities such as bathing, preparing meals, shopping, managing finances, etc.?: Yes Are you currently unemployed and looking for a job?: No Are you interested in more education?: No Please select the resources that you would like help with: None Currently or been in a relationship where the following occur: No concerns reported THRIVE Score: 1 AUDIT C Alcohol Use Questionnaire (AUDIT-C) 1. How often do you have a drink containing alcohol?: Monthly or less 2. How many drinks containing alcohol do you have on a typical day when you are drinking?: 1 or 2 3. How often do you have six or more drinks on one occasion?: Never Total Score: 1 Score Reviewed/Action Taken: Yes RUDOLPH-7 AMB Questionnaire RUDOLPH-7 Date RUDOLPH - 7 assessed: 08/17/25 Feeling nervous, anxious, or on edge: 0 = Not at all Not being able to stop or control worryin = Not at all Worrying too much about different things: 0 = Not at all Trouble relaxin = More than half the days Being so restless that it is hard to sit still: 0 = Not at all Becoming easily annoyed or irritable: 0 = Not at all Feeling afraid as if something awful might happen: 0 = Not at all Total RUDOLPH-7 score (0-4 normal; 5-9 mild; 10-14 moderate; 15-21 severe): 2 Source: Developed by Drs. Osvaldo Zazueta, Katey Farrell, Amari Schaeffer and colleagues, with an educational froylan from [employer]. RUDOLPH-7 Assessment Billing RUDOLPH-7 Assessment Tool: RUDOLPH-7 Assessment 16007 Physical exam (Primary Care) Vital Signs: Last Vital Signs Pulse 113 H 08/17/25 14:24 BP 140/90 H 08/17/25 14:24 Pulse Ox 94 08/17/25 14:24 BMI result Body Mass Index 34.0 Tobacco/Smoking Status: Tobacco use Status Tobacco use date assessed 08/17/25 08/17/25 14:28 Patient Tobacco Use Status Never used Tobacco 08/17/25 14:28 e-Cigarette/Vaping Use Never Used 08/17/25 14:28 PHQ-9: PHQ-9 Score PHQ-9: Total score 7 08/17/25 14:52 Depression Screening Interpretation: Negative Thrive Assessment: Date of Thrive Assessment Date Thrive assessed 08/17/25 08/17/25 14:28 Currently or been in a relationship where the following occur: No concerns reported Office Procedures Nebulizer Treatment Nebulizer Treatment 26625-Sskmgrnxb/MDI RX initial, or Nebulizer Subsequent Treatment Office Meds albuterol sulfate 2.5 mg/3 mL (0.083 %) solution for nebulization Performing Provider: Nacny Corrales MD Performing Location: [facility] Administered by: Rosie Randall on 08/17/25 14:49 Dose Route Admin Location Dispensed Lot Number Expiration Date [employer]DC Realty Loan Specialist 2.5 mg inhalation 3 mL 25H04/07/27 [id number] [employer] Coding Level of Care Code Est Pt Level 4 (28444) Est Pt Prev Care >65y(03404) Diagnoses Encounter for general adult medical examination with abnormal findings Z00.01 Asthma exacerbation in COPD J44.1; J45.901 Chest congestion R09.89 Wheezing R06.2 Environmental allergies Z91.09 Class 1 obesity due to excess calories with serious comorbidity and body mass index (BMI) of 34.0 to 34.9 in adult E66.09; Z68.34 Body mass index: BMI 34.0-34.9 Obesity classification: adult class 1 (BMI 30 - 34.9) Serious obesity comorbidity presence: with serious comorbidity CPT Codes Nebulizer Treatment - Nebulizer Treatment, initial or subsequent: 31339- Nebulizer/MDI RX initial, or Nebulizer Subsequent Treatment ([id number]) Additional Codes RUDOLPH-7 Assessment Billing - RUDOLPH-7 Assessment Tool: RUDOLPH-7 Assessment 46640 ([id number]) PHQ-9 - 42331 - PHQ-9 Billing: Yes ([id number]) Assessment & Plan Assessment & Plan (1) Encounter for general adult medical examination with abnormal findings: Code(s): Z00.01 - Encounter for general adult medical examination with abnormal findings Category: Medical (2) Asthma exacerbation in COPD: Code(s): J44.1 - Chronic obstructive pulmonary disease with (acute) exacerbation; J45.901 - Unspecified asthma with (acute) exacerbation Category: Medical (3) Chest congestion: Code(s): R09.89 - Other specified symptoms and signs involving the circulatory and respiratory systems Category: Medical (4) Wheezing: Code(s): R06.2 - Wheezing Category: Medical (5) Environmental allergies: Code(s): Z91.09 - Other allergy status, other than to drugs and biological substances Category: Medical (6) Obesity due to excess calories: Code(s): E66.09 - Other obesity due to excess calories Category: Medical Qualifiers: Body mass index: BMI 34.0-34.9 Obesity classification: adult class 1 (BMI 30 - 34.9) Serious obesity comorbidity presence: with serious comorbidity Qualified Code(s): E66.09 - Other obesity due to excess calories; Z68.34 - Body mass index [BMI] 34.0-34.9, adult Plan Health Maintenance - The patient is due for a tetanus vaccine. - She is due for a pneumonia vaccine. - She is due for a flu vaccine. - She is due for a shingles vaccine. - She missed a colonoscopy appointment - Her last mammogram was in June of this year. - Her last BEAM MACHINE OPERATOR visit was in July 2023, with an upcoming appointment on the 24th of this month. - Orders for new fasting labs will be placed. feeling much better after the updraft treatment, but still wheezing Patient Instructions - Get the tetanus, pneumonia, flu, and shingles vaccines from a pharmacy once you are feeling better. - Complete fasting lab work as ordered. - You will receive a breathing treatment (DuaNeb) now in the office. - Go for a chest X-ray after your breathing treatment. - Take the prescribed antibiotic and prednisone as directed. - Schedule a follow-up appointment in about 10 days to check on your condition. - Reschedule your missed colonoscopy. . Orders: Orders Lipid Panel 08/17/25 E66.09 - Other obesity due to excess calories, J44.1 - Chronic obstructive pulmonary disease with (acute) exacerbation, J45.901 - Unspecified asthma with (acute) exacerbation, Z00.01 - Encounter for general adult medical examination with abnormal findings, Z68.34 - Body mass index [BMI] 34.0-34.9, adult, Z91.09 - Other allergy status, other than to drugs and biological substances TSH reflex Free T4 08/17/25 E66.09 - Other obesity due to excess calories, J44.1 - Chronic obstructive pulmonary disease with (acute) exacerbation, J45.901 - Unspecified asthma with (acute) exacerbation, Z00.01 - Encounter for general adult medical examination with abnormal findings, Z68.34 - Body mass index [BMI] 34.0-34.9, adult, Z91.09 - Other allergy status, other than to drugs and biological substances XR chest 2V 08/17/25 R06.2 - Wheezing, R09.89 - Other specified symptoms and signs involving the circulatory and respiratory systems AMB Nebulizer Treatment 08/17/25 R06.02 - Shortness of breath Complete Blood Count Auto Diff 08/17/25 E66.09 - Other obesity due to excess calories, J44.1 - Chronic obstructive pulmonary disease with (acute) exacerbation, J45.901 - Unspecified asthma with (acute) exacerbation, Z00.01 - Encounter for general adult medical examination with abnormal findings, Z68.34 - Body mass index [BMI] 34.0-34.9, adult, Z91.09 - Other allergy status, other than to drugs and biological substances Comprehensive [place]. Panel Fast 08/17/25 E66.09 - Other obesity due to excess calories, J44.1 - Chronic obstructive pulmonary disease with (acute) exacerbation, J45.901 - Unspecified asthma with (acute) exacerbation, Z00.01 - Encounter for general adult medical examination with abnormal findings, Z68.34 - Body mass index [BMI] 34.0-34.9, adult, Z91.09 - Other allergy status, other than to drugs and biological substances Medications: New amoxicillin-pot clavulanate 875-125 mg 1 tab PO BID 20 tabs 0RF 10 days methylprednisolone (Medrol (Manjeet)) PO PER PKG DIR 21 ea 0RF 6 days
--- OUTSIDE RECORDS SUMMARY | 2025-08-17 22:36 | XMS_ITS | Clinical Summary ---
Author Organization [facility] Address [address] [place] [address] Phone Care Team Providers Care Branch Coordinator Name Role Phone Nancy Corrales MD Primary Care Provider [phone] Allergies Active Allergy Reactions Criticality Noted Date [...] this topic Insurance Medicaid Medicaid Care Teams Branch Coordinator Relationship Specialty Start Date End Date Nancy Corrales MD [facility] [place] [address] PCP - General Internal Medicine 05/29/21
== END 2025-08-17 15:06 | disposition home or self-care (01) ==
LOC: HO.HMCC 14:24
PROVIDERS: PCP Internal Medicine; Visit Provider Internal Medicine
DX: R06.02 Shortness of breath (principal)

== ENCOUNTER → 2025-08-17 15:10 | Outpatient (BNV) | payer MEDICARE, MEDICAID, SELFPAY | PROVIDERS: PCP Internal Medicine; Visit Provider Radiology Diagnostic Radiology | DX: J81.0 Acute pulmonary edema (principal); I51.7 Cardiomegaly | CPT/HCPCS: 71046 ==